=== PATIENT | male | born 1960 | race Caucasian/White ===

== ENCOUNTER 2016-10-22 15:21 | Emergency (ER) | payer OTHER ==
[2016-10-22] MEDS ORDERED: oxyCODONE 5 MG TABLET PO STA (16:36)
[2016-10-22] MEDS ORDERED: cefTRIAXone 1 GM in SODIUM CHLORIDE 0.9% MINIBAG 100 ML IV STA (17:47)
[2016-10-22] MEDS ORDERED: cefTRIAXone 1 GM VIAL ONE (17:51)
== END 2016-10-22 18:47 | disposition home or self-care (01) ==
DX: J18.9 Pneumonia, unspecified organism (principal); I10 Essential (primary) hypertension; Z98.84 Bariatric surgery status; Z98.0 Intestinal bypass and anastomosis status; G89.29 Other chronic pain; M54.9 Dorsalgia, unspecified

== ENCOUNTER 2017-04-02 22:54 | Emergency (ER) | payer OTHER ==
[2017-04-02 23:04] VITALS: BP 209/134
--- NOTE | 2017-04-02 23:57 | ED Physician Documentation ---
History of Present Illness - Stated complaint Stated Complaint: ANXIETY - Chief complaint Chief Complaint: Back Pain - History obtained from History obtained from: Patient - History of Present Illness Improved by: no ameliorating factors Worsened by: no exacerbating factors - Additonal information Additional information: patient takes oxycodone and oxycontin on a daily basis for years (for chronic back and hip pain). He had these two medications in a bottle at his bedside one week ago when his bedspread knocked over both the bottle as well as a full glass of water. Most of these two medications dissolved due to exposure to the water. He is due for refills Tuesday (04/04). He was able to salvage a few of the pills and took smaller doses than usual to try to prevent withdrawal, but he now has been without a dose of either of these for 2 days. He contacted the prescribing physician and was told he would have to wait until Tuesday before medications would be prescribed or provided. He c/o insomnia, nausea, diaphoresis, anxiety. Review of Systems Constitutional: reports: Chills, Myalgias, Sweats. denies: Fever Cardiac: reports: Reviewed and negative Respiratory: reports: Reviewed and negative GI: reports: Nausea. denies: Abdominal Pain, Vomiting PD PAST MEDICAL HISTORY - Past Medical History Cardiovascular: Hypertension Respiratory: None Neuro: Head injury, Tremors Endocrine/Autoimmune: None GI: Ulcers : Frequency HEENT: None Psych: Depression, Anxiety, Panic attacks, ADD/ADHD, Claustrophobia, Eating disorder Musculoskeletal: Osteoarthritis Derm: None - Past Surgical History Past Surgical History: Yes General: Other Ortho: Shoulder arthroplasty, Other - Present Medications Home Medications: Ambulatory Orders Medication Instructions Recorded Confirmed oxyCODONE ER [OxyCONTIN] 30 mg PO Q12H 11/01/13 10/22/16 oxyCODONE [Roxicodone] 60 mg PO Q4HR 11/01/13 10/22/16 Amoxicillin 10 ml PO TID 10 Days 10/22/16 Atorvastatin [Lipitor] 20 mg PO DAILY 10/22/16 10/22/16 Bupropion HCl [Wellbutrin Xl] 1 tab PO DAILY 10/22/16 10/22/16 Carvedilol [Coreg] 25 mg PO BID 10/22/16 10/22/16 Cyclobenzaprine [Flexeril] 10 mg PO TID 10/22/16 10/22/[address] [Voltaren] 75 mg PO DAILY 10/22/16 10/22/16 Doxycycline Monohydrate 20 ml PO BID 10 Days 10/22/16 [Vibramycin] Lisinopril 20 mg PO DAILY 10/22/16 10/22/16 Pregabalin [Lyrica] 1 cap PO TID 10/22/16 10/22/16 Solifenacin Succinate [Vesicare] 5 mg PO DAILY 10/22/16 10/22/16 Spironolactone 12.5 mg PO DAILY 10/22/16 10/22/16 Tizanidine HCl 8 mg PO DAILY PM 10/22/16 10/22/16 Venlafaxine HCl [Effexor Xr] 150 mg PO DAILY 10/22/16 10/22/16 Oxycodone HCl [Oxycontin] 60 mg PO BID #2 tab.er.12h 04/03/17 oxyCODONE [Roxicodone] 2 tab PO Q4HR #12 tablet 04/03/17 - Allergies Allergies/Adverse Reactions: Allergies Allergy/AdvReac Type Severity Reaction Status Date / Time No Known Drug Allergies Allergy Verified 04/02/17 23:04 - Social History Does the pt smoke?: No Smoking Status: Never smoker Does the pt drink ETOH?: No Does the pt have substance abuse?: No - Immunizations Immunizations are current?: Yes - POLST Patient has POLST: No PD ED PE NORMAL - Vitals Vital signs reviewed: Yes - General General: Alert and oriented X 3, Well developed/nourished, Other (appears anxious but is cooperative and answers appropriately) - HEENT HEENT: PERRL, EOMI, Moist mucous membranes - Neck Neck: Supple, no meningeal sign - Cardiac Cardiac: RRR, No murmur - Respiratory Respiratory: No respiratory distress, Clear bilaterally - Abdomen Abdomen: Soft, Non tender Results - Vitals Vitals: Vital Signs - 24 hr 04/02/17 22:56 Temperature 36.2 C L Heart Rate 86 Respiratory 20 Rate Blood Pressure 209/134 H O2 Saturation 100 Oxygen O2 Source Room air PD MEDICAL DECISION MAKING - ED course Complexity details: considered differential, d/w patient ED course: [facility] reflects regular prescriptions for the oxycodone, oxycontin, as well as diazepam and tramadol. The prescriptions are all from the same prescribing physician and there are no "red flags" in his history on [facility], [facility], and my [facility] records. He has an appointment Tuesday and thus won't need much medication. Given percocet take-home pack and I prescribed the oxycodone and oxycontin in an amount that should be enough to last until Tuesday. Departure - Departure Disposition: Home, Self Care Clinical Impression: Withdrawal from opioids Condition: Good Instructions: ED Withdrawal Narcotic Prescriptions: oxyCODONE [Roxicodone] 2 tab PO Q4HR #12 tablet Oxycodone HCl [Oxycontin] 60 mg PO BID #2 tab.er.12h Comments: Follow up with your doctor on Tuesday as scheduled. It is imperative that you not only tell your doctor that you were seen in the emergency department tonight , but that you also bring the prescriptions with you and show them to your doctor so that they know what was prescribed in what doses and what quantities Discharge Date/Time: 04/03/17 00:41
[2017-04-03] MEDS ORDERED: oxyCODONE/ACET 5/325 Prepack 4 PO STA (00:28)
[2017-04-03] MEDS ORDERED: oxyCODONE/ACET 5/325 Prepack 4 PO ONE (00:33)
== END 2017-04-03 00:41 | disposition home or self-care (01) ==
LOC: ED 22:54
DX: F11.23 Opioid dependence with withdrawal (principal); M54.9 Dorsalgia, unspecified; M25.559 Pain in unspecified hip; G89.29 Other chronic pain; I10 Essential (primary) hypertension; M19.90 Unspecified osteoarthritis, unspecified site; F32.9 Major depressive disorder, single episode, unspecified; Z87.11 Personal history of peptic ulcer disease
CPT/HCPCS: 99283

== ENCOUNTER 2019-05-22 11:46 | Inpatient (IN) | payer OTHER ==
[2019-05-22 15:10] LABS: BILIRUBIN,URINE NEGATIVE (NEGATIVE); GLUCOSE, URINE (UA) >=1000 mg/dL (NEGATIVE); KETONES,URINE (UA) NEGATIVE (NEGATIVE); LEUKOCYTE ESTERASE, URINE NEGATIVE (NEGATIVE); NITRITE,URINE NEGATIVE (NEGATIVE); OCCULT BLOOD,URINE MODERATE (NEGATIVE); PROTEIN,URINE TRACE mg/dL (NEGATIVE); UROBILINOGEN,URINE 0.2 (NORMAL) E.U./dL (NORMAL)
[2019-05-22 15:12] LABS: CLARITY,URINE CLEAR (CLEAR)
--- NOTE | 2019-05-22 15:18 | ED Physician Documentation ---
History of Present Illness - Stated complaint Stated Complaint: BODY PX - Chief complaint Chief Complaint: General - History obtained from History obtained from: Patient, EMS - History of Present Illness Timing: Other (This is a 58-year-old gentleman with chronic bilateral hip pain who lives by himself with an [place]. He says there is actually someone else in the house, but it is not helped much by this person. He is a little vague on history and timeframe but it sounds like he had 2 falls late last week, the first 1 he remembers waking up on the floor with his eyes open staring up at the ceiling with an increase in his bilateral hip pain and then he thinks he fell again another couple of days later. It sounds like he is been pretty much unable to ambulate ever since and is been down on the ground a lot. As such he missed his medications over the last day because he could not get to them. He normally takes 4 x 30 mg OxyCodone per day and 3 x 10 mg Valium per day for chronic pain.) Review of Systems Ten Systems: 10 systems reviewed and negative Constitutional: denies: Fever, Chills Cardiac: denies: Chest pain / pressure, Palpitations Respiratory: denies: Dyspnea, Cough GI: denies: Abdominal Pain, Nausea, Diarrhea Musculoskeletal: reports: Pain with weight bearing Neurologic: reports: Headache, LOC PD PAST MEDICAL HISTORY - Past Medical History Cardiovascular: Hypertension Respiratory: None Endocrine/Autoimmune: None GI: Ulcers : Frequency HEENT: None Psych: Depression, Anxiety, Panic attacks, ADD/ADHD, Claustrophobia, Eating disorder Musculoskeletal: Osteoarthritis Derm: None - Past Surgical History Past Surgical History: Yes General: Other Ortho: Shoulder arthroplasty, Other - Present Medications Home Medications: Ambulatory Orders Medication Instructions Recorded Confirmed Atorvastatin [Lipitor] 20 mg PO DAILY 10/22/16 10/22/16 Bupropion HCl [Wellbutrin Xl] 1 tab PO DAILY 10/22/16 10/22/16 Carvedilol [Coreg] 25 mg PO BID 10/22/16 10/22/16 Cyclobenzaprine [Flexeril] 10 mg PO TID 10/22/16 10/22/[address] [Voltaren] 75 mg PO DAILY 10/22/16 10/22/16 Lisinopril 20 mg PO DAILY 10/22/16 10/22/16 Pregabalin [Lyrica] 1 cap PO TID 10/22/16 10/22/16 Solifenacin Succinate [Vesicare] 5 mg PO DAILY 10/22/16 10/22/16 Spironolactone 12.5 mg PO DAILY 10/22/16 10/22/16 Tizanidine HCl 8 mg PO DAILY PM 10/22/16 10/22/16 Venlafaxine HCl [Effexor Xr] 150 mg PO DAILY 10/22/16 10/22/16 Oxycodone HCl [Oxycontin] 60 mg PO BID 05/22/19 05/22/19 diazePAM [Diazepam] 10 mg PO TID PRN 05/22/19 05/22/19 oxyCODONE [Roxicodone] 60 mg PO Q4H PRN 05/22/19 05/22/19 - Allergies Allergies/Adverse Reactions: Allergies Allergy/AdvReac Type Severity Reaction Status Date / Time No Known Drug Allergies Allergy Verified 04/02/17 23:04 - Social History Does the pt smoke?: No Smoking Status: Never smoker Does the pt drink ETOH?: No Does the pt have substance abuse?: No - Immunizations Immunizations are current?: Yes - POLST Patient has POLST: No PD ED PE NORMAL - Vitals Vital signs reviewed: Yes - General General: Alert and oriented X 3, No acute distress, Other (Somewhat disheveled, smells of urine) - HEENT HEENT: EOMI, Other (Midpoint pupils, some exophthalmos, dry mucous membranes) - Neck Neck: Supple, no meningeal sign, No bony TTP - Cardiac Cardiac: RRR, No murmur - Respiratory Respiratory: No respiratory distress, Clear bilaterally - Abdomen Abdomen: Soft, Non tender - Back Back: No CVA TTP, No spinal TTP - Derm Derm: Normal color, Warm and dry - Extremities Extremities: Other (Scrapes and swelling over the anterior parts of both knees consistent with crawling on his knees recently. I am really unable to elucidate any pain or tenderness from either hip. He has very poor range of motion in either hip, but internal and external rotation do not seem to be painful.) - Neuro Neuro: Alert and oriented X 3, Normal speech Results - Vitals Vitals: Vital Signs - 24 hr 05/22/19 05/22/19 05/22/19 12:03 14:42 16:22 Temperature 36.2 C L 36.5 C 36.7 C Heart Rate 120 H 88 92 Respiratory 18 16 20 Rate Blood Pressure 150/82 H 148/80 H 144/82 H O2 Saturation 99 100 99 Oxygen O2 Source Room air - EKG (time done) 1735 Rate: Rate (enter#) (89) Rhythm: NSR, LAE [place]: Normal, LAD QRS: LVH Ischemia: Non specific changes Computer interpretation: Agree with computer - Labs Labs: Laboratory Tests 05/22/19 05/22/19 05/22/19 14:54 14:56 15:25 WBC 84.8 H* RBC 4.99 Hgb 12.5 L Hct 41.6 L MCV 83.4 MCH 25.1 L MCHC 30.0 L RDW 14.9 Plt Count 217 MPV 11.0 Neut # (Auto) Not Reportable Lymph # (Auto) Not Reportable [place] # (Auto) Not Reportable Eos # (Auto) Not Reportable Baso # (Auto) Not Reportable Absolute Nucleated RBC Not Reportable Total Counted 100 Band Neuts % (Manual) 0 Abnorm Lymph % (Manual) 77 Nucleated RBC % Not Reportable Neutrophils # (Manual) 9.3 H Lymphocytes # (Manual) 70.4 H Monocytes # (Manual) 3.4 H Eosinophils # (Manual) 0.0 Basophils # (Manual) 1.7 H Differential Comment MANUAL DIFFERENTIAL Manual Slide Review Indicated WBC Morphology 1+ SMUDGE Platelet Estimate NORMAL (130-450,000) Platelet Morphology 1+ LARGE PLATELETS RBC Morph Micro Appear NORMAL APPEARANCE PT INR Sodium Potassium Chloride Carbon Dioxide Anion Gap BUN Creatinine Estimated GFR (MDRD) Glucose Calcium Total Bilirubin AST ALT Alkaline Phosphatase Total Creatine Kinase Troponin I High Sens Total Protein Albumin Globulin Albumin/Globulin Ratio Lipase Urine Color YELLOW Urine Clarity CLEAR Urine pH 6.0 Ur Specific [place] <=1.005 Urine Protein TRACE Urine Glucose (UA) >=1000 H Urine Ketones NEGATIVE Urine Occult Blood MODERATE H Urine Nitrite NEGATIVE Urine Bilirubin NEGATIVE Urine Urobilinogen 0.2 (NORMAL) Ur Leukocyte Esterase NEGATIVE Urine RBC 0-5 Urine WBC 0-3 Ur Squamous Epith Cells FEW Squamous Urine Bacteria None Seen Ur Microscopic Review INDICATED Urine Culture Comments NOT INDICATED Urine Opiates Screen NEGATIVE Ur Oxycodone Screen POSITIVE H Urine Methadone Screen NEGATIVE Ur Propoxyphene Screen NEGATIVE Ur Barbiturates Screen NEGATIVE Ur Tricyclics Screen NEGATIVE Ur Phencyclidine Scrn NEGATIVE Ur Amphetamine Screen NEGATIVE U Methamphetamines Scrn NEGATIVE U Benzodiazepines Scrn POSITIVE H Urine Cocaine Screen NEGATIVE U Cannabinoids Screen NEGATIVE Ethyl Alcohol 05/22/19 05/22/19 05/22/19 15:25 15:25 15:25 WBC RBC Hgb Hct MCV MCH MCHC RDW Plt Count MPV Neut # (Auto) Lymph # (Auto) [place] # (Auto) Eos # (Auto) Baso # (Auto) Absolute Nucleated RBC Total Counted Band Neuts % (Manual) Abnorm Lymph % (Manual) Nucleated RBC % Neutrophils # (Manual) Lymphocytes # (Manual) Monocytes # (Manual) Eosinophils # (Manual) Basophils # (Manual) Differential Comment Manual Slide Review WBC Morphology Platelet Estimate Platelet Morphology RBC Morph Micro Appear PT 12.6 INR 1.1 Sodium 133 L Potassium 3.0 L Chloride 91 L Carbon Dioxide 27 Anion Gap 15.0 H BUN 37 H Creatinine 1.4 H Estimated GFR (MDRD) 52 L Glucose 366 H Calcium 8.5 Total Bilirubin 0.7 AST 118 H ALT 105 H Alkaline Phosphatase 123 H Total Creatine Kinase 1604 H* Troponin I High Sens 15.5 Total Protein 7.0 Albumin 3.5 Globulin 3.5 Albumin/Globulin Ratio 1.0 Lipase 24 Urine Color Urine Clarity Urine pH Ur Specific [place] Urine Protein Urine Glucose (UA) Urine Ketones Urine Occult Blood Urine Nitrite Urine Bilirubin Urine Urobilinogen Ur Leukocyte Esterase Urine RBC Urine WBC Ur Squamous Epith Cells Urine Bacteria Ur Microscopic Review Urine Culture Comments Urine Opiates Screen Ur Oxycodone Screen Urine Methadone Screen Ur Propoxyphene Screen Ur Barbiturates Screen Ur Tricyclics Screen Ur Phencyclidine Scrn Ur Amphetamine Screen U Methamphetamines Scrn U Benzodiazepines Scrn Urine Cocaine Screen U Cannabinoids Screen Ethyl Alcohol 5.7 - Rads (name of study) CT Pelvis Radiology: Prelim report reviewed (Advanced left and severe right hip degenerative disease. No fracture.), EMP read contemporaneously CT Head Radiology: EMP read contemporaneously (NAD) PD MEDICAL DECISION MAKING - ED course ED course: 58-year-old gentleman with chronic pain from both hips presents with 2 falls over the last week. Now he really cannot walk and looks like he has been crawling on his hands and knees based on the appearance of his knees. White count 85,000. I discussed this with him, initially asking if he had any form of known cancer to which he replied no. I discussed with him that it looks like CLL, he said that he knows he has that and sees an oncologist in [place] for same. He has modest rhabdomyolysis and prerenal acute kidney injury. An IV was placed and he is given fluid hydration and potassium replacement. Spoke with Dr. Gonzalez for admission at 4:30 PM. Departure - Departure Disposition: [facility] DC/Xfer Clinical Impression: CLL (chronic lymphocytic leukemia), Fall Rhabdomyolysis Qualifiers: Rhabdomyolysis type: non-traumatic Qualified Code(s): M62.82 - Rhabdomyolysis Contusion of right hip Qualifiers: Encounter type: initial encounter Qualified Code(s): S70.01XA - Contusion of right hip, initial encounter Contusion of left hip Qualifiers: Encounter type: initial encounter Qualified Code(s): S70.02XA - Contusion of left hip, initial encounter Condition: Fair
[2019-05-22 15:25] LABS: BACTERIA,URINE None Seen /HPF (None Seen); RBC,URINE 0-5 /HPF (0-5); SQUAMOUS EPITHELIAL CELL,UR FEW Squamous (<= Few)
[2019-05-22 15:31] LABS: BASOPHILS % (AUTO) 0.1 %; EOSINOPHILS % (AUTO) 0.2 %; HGB - HEMOGLOBIN 12.5 g/dL (14.0-18.0); MEAN CORPUSCULAR HEMOGLOBIN 25.1 pg (27.0-31.0); MEAN CORPUSCULAR VOLUME 83.4 fL (80.0-94.0); MONOCYTES % (AUTO) 4.8 %; NEUTROPHILS % (AUTO) 16.1 %; PLT - PLATELET COUNT 217 10^3/uL (130-450); RED BLOOD COUNT 4.99 10^6/uL (4.70-6.10); RED CELL DISTRIBUTION WIDTH 14.9 % (12.0-15.0)
[2019-05-22 15:40] LABS: WHITE BLOOD COUNT 84.8 x10^3/uL (4.8-10.8)
[2019-05-22 15:42] LABS: INR 1.1 (0.8-1.2); PT - PROTHROMBIN TIME 12.6 secs (9.9-12.6)
--- NOTE | 2019-05-22 16:06 | CT Report ---
Reason: head/hip inj Procedure Date: 05/22/2019 Accession Number: [id number] / [id number] Procedure: CT - HEAD WO CPT Code: FULL RESULT: EXAM: CT HEAD EXAM DATE: 05/22/2019 03:59 PM. CLINICAL HISTORY: Head/hip inj. COMPARISON: None. TECHNIQUE: Multiaxial CT images were obtained from the foramen magnum to the vertex. Reformats: Sagittal and coronal. IV contrast: None. In accordance with CT protocol optimization, one or more of the following dose reduction techniques were utilized for this exam: automated exposure control, adjustment of mA and/or KV based on patient size, or use of iterative reconstructive technique. FINDINGS: Parenchyma: No intraparenchymal hemorrhage. No evidence of mass, midline shift, or CT findings of infarction. [place] Valle-white differentiation is distinct. Extraaxial Spaces: Normal for age. No subdural or epidural collections identified. Ventricles: Normal in size and position. Sinuses and Orbits: Imaged paranasal sinuses, orbits, and mastoids show no significant abnormality. Bones: No evidence of fracture or calvarial defect. Other: None. IMPRESSION: Normal head CT. RADIA
[2019-05-22 16:15] LABS: BAND NEUTROPHILS % (MANUAL) 0 %
[2019-05-22 16:16] LABS: ABNORMAL LYMPHS % (MANUAL) 77 %; ALBUMIN 3.5 g/dL (3.2-5.5); BASOPHILS # (MANUAL) 1.7 10^3/uL (0-0.1); BASOPHILS % (MANUAL) 2 %; BILIRUBIN,TOTAL 0.7 mg/dL (0.2-1.0); CALCIUM 8.5 mg/dL (8.5-10.3); CREATININE 1.4 mg/dL (0.6-1.2); LYMPHOCYTES # (MANUAL) 70.4 10^3/uL (1.5-3.5); LYMPHOCYTES % (MANUAL) 6 %; MONOCYTES # (MANUAL) 3.4 10^3/uL (0.0-1.0)
[2019-05-22 16:18] LABS: PLATELET ESTIMATE, MANUAL NORMAL (130-450,000) (NORMAL); PLATELET MORPHOLOGY 1+ LARGE PLATELETS (NORMAL); RBC MORPHOLOGY (MULTIPLE) NORMAL APPEARANCE (NORMAL)
[2019-05-22] MEDS ORDERED: oxyCODONE 5 MG TABLET PO STA (16:18)
[2019-05-22] MEDS ORDERED: SODIUM CHLORIDE 0.9% 1,000 ML IV ONE ×2 (16:19)
[2019-05-22] MEDS ORDERED: POTASSIUM CHLORIDE 20 MEQ TABLET PO STA (16:20)
[2019-05-22 16:21] LABS: DIFFERENTIAL COMMENT MANUAL DIFFERENTIAL
[2019-05-22] MEDS ORDERED: oxyCODONE ER 10 MG TABLET PO STA (16:28)
[2019-05-22] MEDS ORDERED: oxyCODONE ER 40 MG TABLET PO STA (16:29)
--- NOTE | 2019-05-22 16:34 | CT Report ---
Reason: head/hip inj Procedure Date: 05/22/2019 Accession Number: [id number] / [id number] Procedure: CT - PELVIS WO CPT Code: FULL RESULT: EXAM: CT BONY PELVIS WITHOUT CONTRAST EXAM DATE: 05/22/2019 03:59 PM. CLINICAL HISTORY: Hip injury last week. Pain. COMPARISON: Abdominopelvic CT 02/16/2011. TECHNIQUE: Thin-section axial images were acquired of the pelvis without contrast. Post-processing: Coronal and sagittal reformats. Other: None. In accordance with CT protocol optimization, one or more of the following dose reduction techniques were utilized for this exam: automated exposure control, adjustment of mA and/or KV based on patient size, or use of iterative reconstructive technique. FINDINGS: Bones and articular surfaces: There are post surgical changes of L5-S1 laminectomy, posterior and interbody fusion from L4-S1. Mild symmetric degenerative change in the sacroiliac joints. No acute fractures are identified. The right hip demonstrates moderate joint space narrowing with femoral head marginal osteophytes. Severe joint space narrowing at the superolateral aspect of the joint with acetabular subchondral cyst formation and irregular marginal osteophytes. Large anterosuperior os acetabulum. The left hip demonstrates advanced degenerative arthritic change with [id number] articulation superiorly with severe subchondral sclerosis, subchondral cyst formation and remodeling of the femoral head and acetabulum. Large irregular articulating left hip marginal osteophytes. Left greater than right progression compared to the prior pelvic CT. Soft tissues: Small left hip joint effusion. Musculotendinous structures appear grossly intact. No significant muscle atrophy. IMPRESSION: 1. Advanced left hip degenerative joint disease with [id number] articulation, extensive subchondral cyst formation, subchondral sclerosis and marginal osteophytes. 2. Moderate to severe right hip degenerative joint disease. 3. No acute fracture identified. RADIA
[2019-05-22] MEDS ORDERED: SODIUM CHLORIDE FLUSH 0.9% 10 ML SYRINGE IVP PRN (16:43)
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
[2019-05-22 16:52] LABS: MUDS CUTOFF CONCENTRATIONS CUTOFF CONC BELOW:
[2019-05-22 17:03] LABS: AMPHETAMINE SCREEN,URINE NEGATIVE (NEGATIVE); BENZODIAZEPINES SCREEN, URINE POSITIVE (NEGATIVE); COCAINE SCREEN URINE NEGATIVE (NEGATIVE); METHADONE SCREEN, URINE NEGATIVE (NEGATIVE); METHAMPHETAMINES SCREEN, URINE NEGATIVE (NEGATIVE); OPIATE SCREEN, URINE NEGATIVE (NEGATIVE); OXYCODONE SCREEN, URINE POSITIVE (NEGATIVE); PROPOXYPHENE SCREEN, URINE NEGATIVE (NEGATIVE); TRICYCLIC ANTIDEPRESSANT,URINE NEGATIVE (NEGATIVE)
[2019-05-22] MEDS ORDERED: diazePAM 5 MG TABLET PO PRN (18:30)
[2019-05-22] MEDS ORDERED: oxyCODONE 5 MG TABLET PO PRN (18:30)
[2019-05-22] MEDS ORDERED: LIDOCAINE 2% URO-JET 5 ML SYRINGE UR PRN (19:45)
[2019-05-22] MEDS: SODIUM CHLORIDE 0.9% 1,000 ML IV SCH (19:55)
[2019-05-22] MEDS: SODIUM CHLORIDE FLUSH 0.9% 10 ML SYRINGE IVP SCH (19:56)
[2019-05-22] MEDS: oxyCODONE ER 10 MG TABLET PO SCH (22:36)
[2019-05-22] MEDS: oxyCODONE ER 40 MG TABLET PO SCH (22:36)
[2019-05-22] MEDS ORDERED: METOPROLOL 5 MG/5 ML VIAL IVP PRN (23:23)
[2019-05-23] MEDS: SODIUM CHLORIDE 0.9% 1,000 ML IV SCH (02:27)
[2019-05-23] MEDS: SODIUM CHLORIDE FLUSH 0.9% 10 ML SYRINGE IVP SCH ×3 (02:28→17:16)
[2019-05-23 05:46] LABS: BASOPHILS % (AUTO) 0.1 %; EOSINOPHILS % (AUTO) 0.5 %; HGB - HEMOGLOBIN 10.3 g/dL (14.0-18.0); LYMPHOCYTES % (AUTO) 78.4 %; MEAN CORPUSCULAR HEMOGLOBIN 25.2 pg (27.0-31.0); MEAN CORPUSCULAR VOLUME 83.9 fL (80.0-94.0); MONOCYTES % (AUTO) 4.6 %; NEUTROPHILS % (AUTO) 15.8 %; PLT - PLATELET COUNT 188 10^3/uL (130-450); RED BLOOD COUNT 4.09 10^6/uL (4.70-6.10); RED CELL DISTRIBUTION WIDTH 14.8 % (12.0-15.0)
[2019-05-23 06:05] LABS: ALBUMIN 2.7 g/dL (3.2-5.5); BILIRUBIN,TOTAL 0.8 mg/dL (0.2-1.0); CALCIUM 7.5 mg/dL (8.5-10.3); CRP - C-REACTIVE PROTEIN 6.5 mg/dL (0-1.0); MAGNESIUM 1.8 mg/dL (1.7-2.8); TOTAL PROTEIN 5.3 g/dL (6.7-8.2)
[2019-05-23 06:07] LABS: WHITE BLOOD COUNT 70.2 x10^3/uL (4.8-10.8)
[2019-05-23 06:08] LABS: ABNORMAL LYMPHS % (MANUAL) 0 %; BAND NEUTROPHILS % (MANUAL) 0 %
[2019-05-23 06:09] LABS: HB2 TOTAL 10.8 g/dL; HEMOGLOBIN A1C 1.1 g/dL; HEMOGLOBIN A1C % 11.5 % (4.6-6.2)
[2019-05-23 06:20] LABS: DIFFERENTIAL COMMENT MANUAL DIFFERENTIAL; LYMPHOCYTES % (MANUAL) 10 %; MONOCYTES # (MANUAL) 2.8 10^3/uL (0.0-1.0); PLATELET ESTIMATE, MANUAL NORMAL (130-450,000) (NORMAL); PLATELET MORPHOLOGY NORMAL APPEARANCE (NORMAL); RBC MORPHOLOGY (MULTIPLE) NORMAL APPEARANCE (NORMAL)
[2019-05-23] MEDS ORDERED: POTASSIUM CHLORIDE 20 MEQ TABLET PO ONE (07:42)
[2019-05-23] MEDS: POLYETHYLENE GLYCOL 3350 17 GM PACKET PO SCH (08:10)
[2019-05-23] MEDS: oxyCODONE ER 40 MG TABLET PO SCH ×2 (08:12→20:00)
[2019-05-23] MEDS: oxyCODONE ER 10 MG TABLET PO SCH ×2 (08:13→20:00)
[2019-05-23] MEDS: NS W/20 MEQ KCL 1,000 ML IV SCH ×2 (08:13→18:10)
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
[2019-05-23] MEDS ORDERED: VANCOMYCIN PER PHARMACY 100 GM in SODIUM CHLORIDE 0.9% 250 ML IV SCH (09:00)
[2019-05-23] MEDS: PIPERACILLIN/TAZOBACTAM 3.375 GM in SODIUM CHLORIDE 0.9% MINIBAG 100 ML IV SCH ×3 (09:22→20:00)
[2019-05-23] MEDS ORDERED: VANCOMYCIN INJ 2 GM in SODIUM CHLORIDE 0.9% 500 ML IV ONE ×5 (09:30→10:00)
[2019-05-23] MEDS: INSULIN ASPART 300 UNIT/3 ML PEN SUBQ SCH ×3 (12:39→20:08)
[2019-05-23] MEDS: MULTIVITAMIN W/MINERALS TABLET PO SCH (15:40)
[2019-05-23] MEDS: DIPHENOX/ATROPINE 2.5/0.025 MG TABLET PO SCH ×3 (15:40→20:00)
[2019-05-23] MEDS: oxyCODONE 5 MG TABLET PO PRN (17:15)
[2019-05-23] MEDS: MAGNESIUM OXIDE 400 MG TABLET PO SCH (17:16)
[2019-05-23] MEDS: oxyCODONE 30 MG TABLET PO PRN (17:16)
[2019-05-23] MEDS: VANCOMYCIN INJ 1.5 GM in SODIUM CHLORIDE 0.9% 500 ML IV SCH (18:11)
[2019-05-23] MEDS: CARVEDILOL 12.5 MG TABLET PO SCH (20:02)
[2019-05-23] MEDS ORDERED: INSULIN GLARGINE 300 UNIT/3 ML PEN SUBQ SCH (21:00)
[2019-05-23] MEDS: BUDESONIDE 0.5 MG/2 ML NEB INH SCH (21:17)
[2019-05-23] MEDS: FORMOTEROL FUMARATE NEB 20 MCG/2 ML INH SCH (21:17)
[2019-05-23] MEDS ORDERED: VANCOMYCIN INJ 1.5 GM in SODIUM CHLORIDE 0.9% 500 ML IV SCH (22:00)
[2019-05-24] MEDS: VANCOMYCIN INJ 1.5 GM in SODIUM CHLORIDE 0.9% 500 ML IV SCH ×2 (01:22→12:02)
[2019-05-24] MEDS: PIPERACILLIN/TAZOBACTAM 3.375 GM in SODIUM CHLORIDE 0.9% MINIBAG 100 ML IV SCH ×2 (04:09→09:00)
[2019-05-24] MEDS: oxyCODONE 30 MG TABLET PO PRN ×3 (04:39→16:34)
[2019-05-24] MEDS: oxyCODONE 5 MG TABLET PO PRN ×3 (04:40→16:33)
[2019-05-24] MEDS: SODIUM CHLORIDE FLUSH 0.9% 10 ML SYRINGE IVP SCH ×3 (04:45→16:55)
[2019-05-24 05:08] LABS: BASOPHILS % (AUTO) 0.1 %; EOSINOPHILS % (AUTO) 0.7 %; LYMPHOCYTES % (AUTO) 75.4 %; MEAN CORPUSCULAR HEMOGLOBIN 25.9 pg (27.0-31.0); MEAN CORPUSCULAR HGB CONC 29.7 g/dL (32.0-36.0); MEAN CORPUSCULAR VOLUME 87.1 fL (80.0-94.0); MONOCYTES % (AUTO) 5.1 %; NEUTROPHILS % (AUTO) 17.7 %; PLT - PLATELET COUNT 175 10^3/uL (130-450); RED BLOOD COUNT 4.25 10^6/uL (4.70-6.10); RED CELL DISTRIBUTION WIDTH 14.9 % (12.0-15.0)
[2019-05-24 05:18] LABS: ALBUMIN 2.8 g/dL (3.2-5.5); BILIRUBIN,TOTAL 0.5 mg/dL (0.2-1.0); CALCIUM 7.7 mg/dL (8.5-10.3); CREATININE 0.9 mg/dL (0.6-1.2); TOTAL PROTEIN 5.6 g/dL (6.7-8.2)
[2019-05-24 05:20] LABS: ABNORMAL LYMPHS % (MANUAL) 0 %
[2019-05-24 05:32] LABS: WHITE BLOOD COUNT 64.3 x10^3/uL (4.8-10.8)
[2019-05-24 05:36] LABS: BAND NEUTROPHILS % (MANUAL) 1 %; DIFFERENTIAL COMMENT MANUAL DIFFERENTIAL; LYMPHOCYTES # (MANUAL) 50.2 10^3/uL (1.5-3.5); LYMPHOCYTES % (MANUAL) 35 %; MONOCYTES # (MANUAL) 1.3 10^3/uL (0.0-1.0); PLATELET ESTIMATE, MANUAL NORMAL (130-450,000) (NORMAL); RBC MORPHOLOGY (MULTIPLE) NORMAL APPEARANCE (NORMAL)
[2019-05-24] MEDS: NS W/20 MEQ KCL 1,000 ML IV SCH ×2 (06:20→09:54)
[2019-05-24] MEDS: FORMOTEROL FUMARATE NEB 20 MCG/2 ML INH SCH (07:16)
[2019-05-24] MEDS: BUDESONIDE 0.5 MG/2 ML NEB INH SCH (07:16)
[2019-05-24] MEDS ORDERED: FLUTICASONE NASAL SPRAY NAS SCH (09:00)
[2019-05-24] MEDS ORDERED: ASPIRIN EC 81 MG TABLET PO SCH (09:00)
[2019-05-24] MEDS: POLYETHYLENE GLYCOL 3350 17 GM PACKET PO SCH (09:01)
[2019-05-24] MEDS: MAGNESIUM OXIDE 400 MG TABLET PO SCH ×2 (09:02→16:33)
[2019-05-24] MEDS: DIPHENOX/ATROPINE 2.5/0.025 MG TABLET PO SCH ×3 (09:02→16:33)
[2019-05-24] MEDS: oxyCODONE ER 40 MG TABLET PO SCH (09:02)
[2019-05-24] MEDS: oxyCODONE ER 10 MG TABLET PO SCH (09:02)
[2019-05-24] MEDS: CARVEDILOL 12.5 MG TABLET PO SCH (09:02)
[2019-05-24] MEDS: MULTIVITAMIN W/MINERALS TABLET PO SCH (09:03)
[2019-05-24] MEDS: INSULIN ASPART 300 UNIT/3 ML PEN SUBQ SCH ×3 (09:08→16:53)
[2019-05-24 10:11] LABS: VANCOMYCIN,TROUGH 23.2 ug/mL (10.0-20.0)
[2019-05-24] MEDS ORDERED: POTASSIUM CHLORIDE 20 MEQ/15 ML UDC PO SCH (11:00)
--- NOTE | 2019-05-24 13:25 | Discharge Plan ---
Discharge Plan Problem Reviewed?: Yes Disposition: Home, Self Care Condition: Fair Prescriptions: Carvedilol [Coreg] 12.5 mg PO BID #30 tablet Clindamycin HCl [Clindamycin 300MG CAP] 300 mg PO Q6H #40 capsule Diphenoxylate/Atropine [Lomotil] 2 tab PO QID PRN #60 tablet PRN Reason: Diarrhea Lactobacillus Acidophilus [Probiotic Acidophilus] 1 each PO BID #60 tablet Magnesium Oxide [Mag Ox] 400 mg PO BIDWM #60 tablet Metformin HCl [Metformin HCl ER] 1,000 mg PO BID #60 tab.er.24h Diet: Diabetic Activity Restrictions: Activity as Tolerated Shower Restrictions: No Driving Restrictions: Yes Assistance Devices: Walker Weight Bearing: Full Weight Health Concerns: Uncontrolled diabetes mellitus type 2 Non-healing foot ulcers Acute infection/cellulitis Rhabdomyolysis Traumatic brain injury Falls Plan of Treatment: Continue antibiotics at home for the next 10-days, also take a probiotic during this time. Since you have been having diarrhea, I have written for some Lomotil pills. Your blood pressure has been low to normal even after holding all of your blood pressure pills and starting your Coreg at only 1/2 the dose. Please STOP your Losartan, and a new prescription for Coreg has been sent to [facility]. Please resume your Metformin at 1000 mg twice daily to help heal your wounds and improve your blood sugars. See the [facility] wound care clinic to ensure proper treatment of your wounds. See oncology, also located in our outpatient [facility] clinic. Please have someone else take you places until you see your PCP, and rest when you get tired. Care Goals: Prevent falls Prevent more foot ulcers Prevent hospital stays See your specialists; Neurology, Oncology and Wound care clinic Reduce the amounts of narcotics to improve your quality of life Assessment: You were admitted to the hospital for a condition called Rhabdomyolysis (caused by damaged muscle tissue which leaked out into the blood stream), and after getting IV fluids, IV antibiotics, this has nearly resolved. This condition usually occurs to people who lie on the floor for an extended amount of time. The exact cause of your falls is undetermined, but most likely it was due to your acute infection of your right great toe. You were given IV antibiotics, which was transitioned to oral antibiotics to be continued at home for the next 10 days. You will need close follow up for this in regards to wound care of which our outpatient wound care clinic is willing to see you. I have made this referral. Your Hemoglobin A1C was elevated at 11.5%, which should be closer to no greater than 7%. If this continues you are at risk for suffering grave consequences with your non-healing wounds. Please continue to take the Metformin with a goal of 1000 mg twice daily. Please see your primary care provider within one week. Please make attempts to cut back on some of your sedatives. Please get someone else to drive until you follow up with your PCP due to the events which led to this hospital stay. Follow-Up Care: [facility] Clinic - Wound/Ostomy No Smoking: If you smoke, Please STOP! Call for help. Follow-up with: Choco Ramsey MD [Primary Care Provider] -
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
[2019-05-24] MEDS ORDERED: CLINDAMYCIN 150 MG CAPSULE PO SCH (14:00)
[2019-05-24] MEDS ORDERED: LACTOBACILLUS RHAMNOSUS GG CAPSULE PO SCH (16:00)
[2019-05-24 16:41] VITALS: BP 133/80
--- NOTE | 2019-05-26 02:56 | XRAY Report ---
Reason: rib pain, falls Procedure Date: 05/22/2019 Accession Number: [id number] / [id number] Procedure: XR - Ribs Bilat w/Chest 4 View CPT Code: FULL RESULT: EXAM: BILATERAL RIB RADIOGRAPHY EXAM DATE: 05/22/2019 07:39 PM. CLINICAL HISTORY: Rib pain, falls. COMPARISON: CHEST 2 VIEW PA/LAT 10/22/2016 5:02 PM. TECHNIQUE: 1 view of the chest and 2 views of the ribs. FINDINGS: Bones: There is a subtle nondisplaced fracture of the right lateral 10th rib. There may be a subtle nondisplaced fracture of the right lateral ninth rib. Lungs: No focal opacities. No pneumothorax. No pleural effusions. Mediastinum: The heart is not enlarged. There is tortuosity of the thoracic aorta. Other: None. IMPRESSION: 1. No infiltrates. 2. No hemopneumothoraces. 3. Subtle nondisplaced fractures of the right lateral ninth and 10th ribs. [facility]IA
== END 2019-05-24 17:55 | disposition home or self-care (01) | DRG 500 ==
LOC: ED 11:46 → MS2 16:43
PROVIDERS: ADMIT Nurse Practitioner; ATTEND Nurse Practitioner
PROC: 0HDMXZZ Extraction of Right Foot Skin, External Approach (ICD-10-PCS; principal; 2019-05-23)
PROC: 0JDQ0ZZ Extraction of Right Foot Subcutaneous Tissue and Fascia, Open Approach (ICD-10-PCS; 2019-05-24)
DX: M62.82 Rhabdomyolysis (principal); G93.41 Metabolic encephalopathy; C91.10 Chronic lymphocytic leukemia of B-cell type not having achieved remission; F11.20 Opioid dependence, uncomplicated; N17.9 Acute kidney failure, unspecified; E11.621 Type 2 diabetes mellitus with foot ulcer; L97.511 Non-pressure chronic ulcer of other part of right foot limited to breakdown of skin; L97.512 Non-pressure chronic ulcer of other part of right foot with fat layer exposed; L03.031 Cellulitis of right toe; E11.65 Type 2 diabetes mellitus with hyperglycemia; E11.42 Type 2 diabetes mellitus with diabetic polyneuropathy; R62.50 Unspecified lack of expected normal physiological development in childhood; J45.998 Other asthma; I10 Essential (primary) hypertension; K76.0 Fatty (change of) liver, not elsewhere classified; R07.9 Chest pain, unspecified; R55 Syncope and collapse; M16.0 Bilateral primary osteoarthritis of hip; F32.9 Major depressive disorder, single episode, unspecified; F41.0 Panic disorder [episodic paroxysmal anxiety]; F90.9 Attention-deficit hyperactivity disorder, unspecified type; F40.240 Claustrophobia; R19.7 Diarrhea, unspecified; K52.89 Other specified noninfective gastroenteritis and colitis; G89.29 Other chronic pain; N40.1 Benign prostatic hyperplasia with lower urinary tract symptoms; R35.0 Frequency of micturition; R35.1 Nocturia; R39.15 Urgency of urination; J32.9 Chronic sinusitis, unspecified; F50.9 Eating disorder, unspecified; E66.9 Obesity, unspecified; Z68.29 Body mass index [BMI] 29.0-29.9, adult; R26.9 Unspecified abnormalities of gait and mobility; S80.211A Abrasion, right knee, initial encounter; S80.212A Abrasion, left knee, initial encounter; S20.311A Abrasion of right front wall of thorax, initial encounter; S20.312A Abrasion of left front wall of thorax, initial encounter; S50.312A Abrasion of left elbow, initial encounter; S50.311A Abrasion of right elbow, initial encounter; S70.12XA Contusion of left thigh, initial encounter; S70.11XA Contusion of right thigh, initial encounter; S70.02XA Contusion of left hip, initial encounter; S70.01XA Contusion of right hip, initial encounter; W19.XXXA Unspecified fall, initial encounter; Y92.039 Unspecified place in apartment as the place of occurrence of the external cause; K21.9 Gastro-esophageal reflux disease without esophagitis; R79.89 Other specified abnormal findings of blood chemistry; M81.0 Age-related osteoporosis without current pathological fracture; M25.452 Effusion, left hip; F60.81 Narcissistic personality disorder; H54.7 Unspecified visual loss; H91.90 Unspecified hearing loss, unspecified ear; A49.01 Methicillin susceptible Staphylococcus aureus infection, unspecified site; B95.4 Other streptococcus as the cause of diseases classified elsewhere; I95.9 Hypotension, unspecified; Z91.19 Patient's noncompliance with other medical treatment and regimen; Z98.1 Arthrodesis status; Z79.51 Long term (current) use of inhaled steroids; Z79.84 Long term (current) use of oral hypoglycemic drugs; Z79.82 Long term (current) use of aspirin; Z87.820 Personal history of traumatic brain injury; Z91.81 History of falling; Z82.49 Family history of ischemic heart disease and other diseases of the circulatory system; Z87.11 Personal history of peptic ulcer disease; Z98.84 Bariatric surgery status; Z63.8 Other specified problems related to primary support group
CPT/HCPCS: 36415; 70450; 71111; 72192; 80053; 80202; 80306; 80320; 81001; 82550; 83036; 83690; 83735; 84443; 84484; 85025; 85610; 86140; 87070; 87077; 87181; 87205; 87640; 93005; 93306; 94640; 97116; 97162; 97166; 99285; A9270; J1815; J3370; J7626; 81003; 87086

== ENCOUNTER 2019-12-31 21:56 | Emergency (ER) | payer OTHER ==
--- NOTE | 2019-12-31 22:06 | ED Physician Documentation ---
PD HPI Fall - Stated complaint Stated Complaint: R SIDE PX/GLF - Chief complaint Chief Complaint: Trauma Ch/Bk - History obtained from History obtained from: Patient - History of Present Illness Mechanism of injury: Tripped Fall distance: Standing position Where injury occurred: Home Timing - onset: How many days ago (3 09/13) Injury(ies) location: Chest, Back (right flank and lower posterolateral right ribs). No: Head, Neck, Abdomen Quality of pain: Pain, Aching, Sharp Associated symptoms: No: LOC, AMS, Weakness, Paresthesias, Nausea / vomiting Worsens with: Movement, Palpation, Other (deep breathing) Similar symptoms before: Has not had sx before Recently seen: Not recently seen (he sees pain clinic in [place] for chronic hip/back pains and has slowly increased to large daily doses pain meds. He says the clinic is going to start weaning down doses.) Review of Systems Constitutional: denies: Fever, Chills, Myalgias Nose: denies: Rhinorrhea / runny nose, Congestion Throat: denies: Sore throat Cardiac: reports: Chest pain / pressure Respiratory: denies: Cough GI: denies: Abdominal Pain, Nausea, Vomiting Skin: reports: Abrasion (s). denies: Laceration (s) Musculoskeletal: reports: Back pain Neurologic: reports: Generalized weakness. denies: Focal weakness, Numbness, Altered mental status, Headache, Head injury PD PAST MEDICAL HISTORY - Past Medical History Cardiovascular: Hypertension Respiratory: None Neuro: Headaches, Peripheral neuropathy Endocrine/Autoimmune: Type 2 diabetes GI: GERD, Ulcers FIELD SUPPORT REPRESENTATIVE: None : Benign prostate hypertrophy, Nocturia, Frequency HEENT: Chronic sinusitis Psych: Depression, Anxiety, Panic attacks, ADD/ADHD, Claustrophobia, Eating disorder Musculoskeletal: Osteoarthritis Derm: None - Past Surgical History Past Surgical History: Yes General: Other Ortho: Shoulder arthroplasty, Other - Present Medications Home Medications: Ambulatory Orders Medication Instructions Recorded Confirmed Atorvastatin [Lipitor] 20 mg PO QPM 10/22/16 05/23/19 Bupropion HCl [Wellbutrin Xl] 300 mg PO DAILY 10/22/16 05/23/19 Cyclobenzaprine [Flexeril] 10 mg PO TID PRN 10/22/16 05/23/19 Spironolactone 25 mg PO DAILY 10/22/16 05/23/19 Tizanidine HCl 8 mg PO DAILY PM 10/22/16 05/23/19 Venlafaxine HCl [Effexor Xr] 150 mg PO DAILY 10/22/16 05/23/19 Oxycodone HCl [Oxycontin] 60 mg PO BID 05/22/19 05/22/19 diazePAM [Diazepam] 10 mg PO TID PRN 05/22/19 05/22/19 Aspirin [Adult Low Dose Aspirin EC] 81 mg PO DAILY 05/23/19 05/23/19 Ferrous Sulfate 4 tab PO DAILY 05/23/19 05/23/19 Fluticasone [Flonase] 2 sprays LIZ DAILY 05/23/19 05/23/19 Fluticasone/Salmeterol [Advair 1 puffs INH BID 05/23/19 05/23/19 250-50 Diskus] Ondansetron HCl [Zofran] 4 mg PO QID PRN 05/23/19 05/23/19 traMADol [Ultram] 100 mg PO QID 05/23/19 05/23/19 Carvedilol [Coreg] 12.5 mg PO BID #30 tablet 05/24/19 Clindamycin HCl [Clindamycin 300MG 300 mg PO Q6H #40 capsule 05/24/19 CAP] Diphenoxylate/Atropine [Lomotil] 2 tab PO QID PRN #60 tablet 05/24/19 Lactobacillus Acidophilus 1 each PO BID #60 tablet 05/24/19 [Probiotic Acidophilus] Magnesium Oxide [Mag Ox] 400 mg PO BIDWM #60 tablet 05/24/19 Metformin HCl [Metformin HCl ER] 1,000 mg PO BID #60 tab.er.24h 05/24/19 oxyCODONE [Roxicodone] 30 mg PO Q4H PRN #30 05/24/19 05/22/19 HYDROmorphone [Dilaudid] 2 mg PO Q6H #10 tablet 01/01/20 Lidocaine Patch 5% [Lidoderm Patch] 1 patch TOP DAILY PRN #10 patch 01/01/20 Naproxen 375 mg PO BID #20 tablet 01/01/20 - Allergies Allergies/Adverse Reactions: Allergies Allergy/AdvReac Type Severity Reaction Status Date / Time No Known Drug Allergies Allergy Verified 04/20/20 22:01 - Living Situation Living Situation: reports: Alone Living Arrangement: reports: At home - Social History Does the pt smoke?: No Smoking Status: Never smoker Does the pt drink ETOH?: No Does the pt have substance abuse?: No - Immunizations Immunizations are current?: Yes - POLST Patient has POLST: No POLST Status: Full Code PD ED PE NORMAL - Vitals Vital signs reviewed: Yes - General General: Alert and oriented X 3, No acute distress, Well developed/nourished - Neck Neck: Supple, no meningeal sign, No bony TTP, No adenopathy - Cardiac Cardiac: RRR, No murmur - Respiratory Respiratory: Clear bilaterally, Other (purple to brown bruising right posterolateral lower chest wall and flank. No spinal tenderness per se. Scabbed abrasions without infection.) - Abdomen Abdomen: Soft, Non tender - Back Back: No CVA TTP - Derm Derm: Normal color, No rash - Extremities Extremities: Normal ROM s pain - Neuro Neuro: Alert and oriented X 3, No motor deficit, Normal speech Results - Vitals Vitals: Oxygen O2 Source Room air - Rads (name of study) chest CT Radiology: Prelim report reviewed (no organ injuries. few rib fractures: 12th seems old. 9-11 appear subacute, per Radiologist.), EMP read contemporaneously (Couple of the fractures look newer, so would correlate clinically. ), See rad report PD MEDICAL DECISION MAKING - ED course Complexity details: reviewed results, re-evaluated patient (Further talking to him, he says he had run out of meds at expected time and his refills were delayed so not coming in until Wed (2 more days) and had run out 3 days ago. I would presume him to have more withdrawal at this point but one med was long acting, so maybe just starting. Would also explain hurting more at baseline, in addition to new injuries. He is on pain contract with clinic in [place]. His SIMA is very straightforward with same Rx each month regularly from just the one provider, so I do not feel he is seeking inappropriately.), considered differential (Had fall with pain/tender right posterolateral chest/flank, with bruising and abrasions that appear several days old (brown/purple bruising, scabbed abrasions). CT showing subacute rib fractures so presume from same event. He denies fall in past few weeks otherwise. He is on chronic pain meds. So will need extra dose to cover pain here in ER.), d/w patient Departure - Departure Disposition: 01 Home, Self Care Clinical Impression: Chronic narcotic dependence Fall from slip, trip, or stumble Qualifiers: Encounter type: initial encounter Qualified Code(s): W01.0XXA - Fall on same level from slipping, tripping and stumbling without subsequent striking against object, initial encounter Chest wall contusion Qualifiers: Encounter type: initial encounter Laterality: right Qualified Code(s): S20.211A - Contusion of right front wall of thorax, initial encounter Rib fractures Qualifiers: Encounter type: initial encounter Rib fracture type: multiple ribs Fracture type: closed Laterality: right Qualified Code(s): S22.41XA - Multiple fractures of ribs, right side, initial encounter for closed fracture Condition: Stable Record reviewed to determine appropriate education?: Yes Instructions: ED Fx Rib Follow-Up: Choco Ramsey MD [Primary Care Provider] - Prescriptions: HYDROmorphone [Dilaudid] 2 mg PO Q6H #10 tablet Lidocaine Patch 5% [Lidoderm Patch] 1 patch TOP DAILY PRN #10 patch PRN Reason: pain Naproxen 375 mg PO BID #20 tablet Comments: Use the lidocaine patches twice daily to the rib injury area. Use naproxen twice daily with food for the next 7 to 10 days. Stay well-hydrated. Use hydromorphone tablets 4 times a day for the next couple of days until your normal prescriptions become available and then resume those. Contact your pain specialist tomorrow to update her on your current medications and what were prescribed here. Discharge Date/Time: 01/01/20 00:39
[2019-12-31] MEDS: KETOROLAC 30 MG/ML VIAL IM STA (22:58)
[2019-12-31] MEDS: HYDROmorphone 2 MG/ML VIAL IM STA (22:58)
[2019-12-31] MEDS: LIDOCAINE PATCH 5% TOP STA (23:05)
--- NOTE | 2019-12-31 23:50 | CT Report ---
Reason: fall with pain/tender right lower posterolat chest Procedure Date: 12/31/2019 Accession Number: [id number] / [id number] Procedure: CT - CHEST WO CPT Code: Final Report FULL RESULT: EXAM: CT CHEST EXAM DATE: 12/31/2019 10:51 PM. CLINICAL HISTORY: Fall with pain/tender right lower posterolateral chest. COMPARISONS: None. TECHNIQUE: Routine helical CT imaging was performed through the chest. IV contrast: None. Reconstructions: Coronal and sagittal. In accordance with CT protocol optimization, one or more of the following dose reduction techniques were utilized for this exam: automated exposure control, adjustment of mA and/or KV based on patient size, or use of iterative reconstructive technique. FINDINGS: The visible portions of the thyroid gland is within normal limits. The unenhanced ascending aorta is dilated measuring 4.4 cm. Atherosclerotic plaque calcifications are seen in the aortic arch and coronary arteries. The unenhanced pulmonary artery is normal in course and caliber. The heart is enlarged. There is no pericardial effusion. The trachea is patent. Innumerable prominent pre-vascular, pretracheal, subcarinal, and axillary lymph nodes are seen. There is an enlarged right paratracheal lymph node measuring 1.6 x 1.6 cm. A small layering right pleural effusion is seen. There is a small peripheral area of consolidation in the right middle lobe with associated dilatation of the adjacent bronchioles. Nodular groundglass opacities are seen in portions of the right upper and lower lobes. The left lung is clear. There is no pneumothorax or left pleural effusion. Postsurgical changes from a gastric bypass are seen. The liver is enlarged measuring 26.7 cm in the craniocaudal dimension. Areas of hyper attenuating parenchyma adjacent to the gallbladder may represent areas of focal fatty sparing. Spleen is also markedly enlarged measuring 19.1 cm in length. There is atrophy of the pancreas or the adrenal glands are within normal limits. Hypoattenuating lesions are seen in both kidneys, likely representing cysts. The largest is in the mid pole of the right kidney and measures 3.1 cm. There is no hydronephrosis. Innumerable subcentimeter periportal, perigastric, mesenteric, periaortic, and pericaval lymph nodes are seen in the imaged portions of the abdomen. The visible bowel loops are normal in caliber. Posterior spinal fusion instrumentation is partially imaged in the lower lumbar spine. There is an exaggerated thoracic kyphosis centered at the thoracolumbar junction. Healing displaced right posterolateral ninth, 10th, and 11th rib fractures are seen. A displaced 12th posterior rib fracture appears chronic given the corticated margins. IMPRESSION: 1. Subacute displaced fractures of the right posterolateral ninth-11th ribs. The displaced 12th posterior rib fracture appears more chronic. 2. Small layering right pleural effusion. 3. Scattered nodular groundglass opacities in the right upper and lower lobes with small peripheral area of consolidation in the right middle lobe, may represent sequelae of a viral infection. 4. Hepatosplenomegaly. 5. Mediastinal, abdominal, and retroperitoneal lymphadenopathy. 6. Dilated ascending aorta. 7. Cardiomegaly. RADIA
[2019-12-31] MEDS: oxyCODONE/ACET 5/325 Prepack 4 PO STA (23:54)
[2019-12-31] MEDS: KETAMINE 500 MG/10 ML VIAL IM STA (23:54)
[2020-01-01 00:41] VITALS: BP 188/100
== END 2020-01-01 00:39 | disposition home or self-care (01) ==
LOC: ED 21:56
DX: F11.20 Opioid dependence, uncomplicated (principal); S20.211A Contusion of right front wall of thorax, initial encounter; S22.41XA Multiple fractures of ribs, right side, initial encounter for closed fracture; W01.0XXA Fall on same level from slipping, tripping and stumbling without subsequent striking against object, initial encounter; Y92.009 Unspecified place in unspecified non-institutional (private) residence as the place of occurrence of the external cause; I10 Essential (primary) hypertension; E11.9 Type 2 diabetes mellitus without complications
CPT/HCPCS: 71250; 96372; 99284

== ENCOUNTER 2020-07-19 15:39 | Emergency (ER) | payer OTHER ==
[2020-07-19] MEDS ORDERED: TETANUS/DIPHTHERIA/PERTUSSIS 0.5 ML SYRINGE IM ONE (16:50)
[2020-07-19] MEDS ORDERED: PANTOPRAZOLE 40 MG TABLET PO STA (16:50)
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
[2020-07-19 17:31] LABS: BASOPHILS % (AUTO) 0.1 %; EOSINOPHILS % (AUTO) 0.2 %; HGB - HEMOGLOBIN 10.3 g/dL (14.0-18.0); LYMPHOCYTES % (AUTO) 86.6 %; MEAN CORPUSCULAR HEMOGLOBIN 26.3 pg (27.0-31.0); MEAN CORPUSCULAR HGB CONC 28.9 g/dL (32.0-36.0); MEAN CORPUSCULAR VOLUME 90.8 fL (80.0-94.0); MEAN PLATELET VOLUME 10.5 fL (7.4-11.4); MONOCYTES % (AUTO) 8.5 %; PLT - PLATELET COUNT 232 10^3/uL (130-450); RED BLOOD COUNT 3.92 10^6/uL (4.70-6.10); RED CELL DISTRIBUTION WIDTH 15.5 % (12.0-15.0)
[2020-07-19 17:42] LABS: WHITE BLOOD COUNT 199.6 x10^3/uL (4.8-10.8)
[2020-07-19 17:43] LABS: ABNORMAL LYMPHS % (MANUAL) 0 %; BAND NEUTROPHILS % (MANUAL) 0 %
[2020-07-19 17:51] LABS: LYMPHOCYTES # (MANUAL) 183.6 10^3/uL (1.5-3.5); LYMPHOCYTES % (MANUAL) 92 %; PLATELET ESTIMATE, MANUAL NORMAL (130-450,000) (NORMAL); PLATELET MORPHOLOGY NORMAL APPEARANCE (NORMAL); RBC MORPHOLOGY (MULTIPLE) 1+ HYPOCHROMASIA (NORMAL)
[2020-07-19 17:52] LABS: DIFFERENTIAL COMMENT MANUAL DIFFERENTIAL
[2020-07-19 17:55] LABS: ALBUMIN 4.1 g/dL (3.2-5.5); ALBUMIN/GLOBULIN RATIO 1.2 (1.0-2.2); BILIRUBIN,TOTAL 0.5 mg/dL (0.2-1.0); CALCIUM 8.1 mg/dL (8.5-10.3); SALICYLATE 17.5 mg/dL; TOTAL PROTEIN 7.5 g/dL (6.7-8.2)
[2020-07-19] MEDS ORDERED: diazePAM INJ 5 MG/ML SYRINGE IM STA (18:04)
[2020-07-19] MEDS ORDERED: POTASSIUM CHLORIDE 20 MEQ TABLET PO STA (18:04)
[2020-07-19 18:27] VITALS: BP 180/90
== END 2020-07-19 18:26 | disposition home or self-care (01) ==
LOC: ED 15:39
DX: F32.9 Major depressive disorder, single episode, unspecified (principal); F41.9 Anxiety disorder, unspecified; G47.00 Insomnia, unspecified; C91.10 Chronic lymphocytic leukemia of B-cell type not having achieved remission; S80.811A Abrasion, right lower leg, initial encounter; W22.09XA Striking against other stationary object, initial encounter; Y92.512 Supermarket, store or market as the place of occurrence of the external cause; Z23 Encounter for immunization; Z87.11 Personal history of peptic ulcer disease; Z90.3 Acquired absence of stomach [part of]; I10 Essential (primary) hypertension; E11.42 Type 2 diabetes mellitus with diabetic polyneuropathy; Z79.84 Long term (current) use of oral hypoglycemic drugs; Z79.82 Long term (current) use of aspirin
CPT/HCPCS: 36415; 80053; 80329; 82550; 83690; 85025; 90471; 90715; 96372; 99283; 99284; A9270

== ENCOUNTER 2020-11-04 01:08 | Outpatient (CLI) | payer OTHER | END 2020-11-04 01:09 | disposition critical access hospital (66) | LOC: EMS 01:08 | PROVIDERS: ATTEND Emergency Medicine | DX: L08.9 Local infection of the skin and subcutaneous tissue, unspecified (principal) | CPT/HCPCS: A0425; A0429 ==

== ENCOUNTER 2020-11-04 01:18 | Emergency (ER) | payer OTHER ==
--- NOTE | 2020-11-04 01:48 | ED Physician Documentation ---
History of Present Illness - Stated complaint Stated Complaint: TOE INFECTION - Chief complaint Chief Complaint: General - History obtained from History obtained from: Patient, EMS - History of Present Illness Timing: Other (intermittent x weeks (see narrative, below)) Pain level now: 8 Improved by: rest Worsened by: weight-bearing - Additonal information Additional information: BIBA. Patient's chief complaint is right great toe pain which has been ongoing for several weeks. Per notes that are faxed to me from [facility], patient was evaluated at [facility] ED 10/17/20 for AMS, found to have elevated LFTs and possible acute cholecystitis. He left AMA and subsequently 10/16 blood cultures grew Klebsiella. He then went to [facility] ED 10/30/20, subsequently transferred to [facility]. Blood culture 10/30 no growth. on 11/01/20, MRCP showed marked gallbladder distention and cholelithiasis. MRI of right foot showed plantar ulcer of 1st toe as well as first distal phalanx osteomyelitis. HIDA scan showed NO scintigraphic evidence of acute cholecystitis. He was started on IV v ancomycin, cefepime, and metronidazole. Hallux amputation was recommended by podiatry but patient refused. He also has CLL. Notes from [place] indicate TACS did NOT recommend surgery, continue IV ceftriaxone and metronidazole. Podiatry recommended 6 week course of IV antibiotics for toe OM, given that patient refuses amputation. Patient denies abdominal pain. Review of Systems Constitutional: reports: Fatigue. denies: Fever, Chills, Sweats Eyes: reports: Reviewed and negative Ears: reports: Reviewed and negative Nose: reports: Reviewed and negative Throat: reports: Reviewed and negative Cardiac: reports: Reviewed and negative Respiratory: reports: Reviewed and negative GI: denies: Abdominal Pain, Nausea, Vomiting, Constipation, Diarrhea : denies: Dysuria, Frequency Skin: reports: Lesions (right great toe ulceration) Musculoskeletal: reports: Extremity pain (right foot) PD PAST MEDICAL HISTORY - Past Medical History Cardiovascular: Hypertension Respiratory: None Neuro: Headaches, Peripheral neuropathy Endocrine/Autoimmune: Type 2 diabetes GI: GERD, 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 : Benign prostate hypertrophy, Nocturia, Frequency HEENT: Chronic sinusitis Psych: Depression, Anxiety, Panic attacks, ADD/ADHD, Claustrophobia, Eating disorder Musculoskeletal: Osteoarthritis Derm: None - Past Surgical History Past Surgical History: Yes General: Other Ortho: Shoulder arthroplasty, Other - Present Medications Home Medications: Ambulatory Orders Medication Instructions Recorded Confirmed Bupropion HCl [Wellbutrin Xl] 300 mg PO DAILY 10/22/16 11/04/20 Cyclobenzaprine [Flexeril] 10 mg PO TID PRN 10/22/16 11/04/20 Tizanidine HCl 8 mg PO DAILY PM 10/22/16 11/04/20 Venlafaxine HCl [Effexor Xr] 150 mg PO DAILY 10/22/16 11/04/20 Oxycodone HCl [Oxycontin] 60 mg PO BID 05/22/19 11/04/20 diazePAM [Diazepam] 10 mg PO TID PRN 05/22/19 11/04/20 Aspirin [Adult Low Dose Aspirin EC] 81 mg PO DAILY 05/23/19 11/04/20 Ferrous Sulfate 4 tab PO DAILY 05/23/19 11/04/20 Fluticasone [Flonase] 2 sprays LIZ DAILY PRN 05/23/19 11/04/20 Ondansetron HCl [Zofran] 4 mg PO QID PRN 05/23/19 11/04/20 Carvedilol [Coreg] 12.5 mg PO BID #30 tablet 05/24/19 11/04/20 Magnesium Oxide [Mag Ox] 400 mg PO BIDWM #60 tablet 05/24/19 11/04/20 Metformin HCl [Metformin HCl ER] 1,000 mg PO BID #60 tab.er.24h 05/24/19 11/04/20 Lidocaine Patch 5% [Lidoderm Patch] 1 patch TOP DAILY PRN #10 patch 01/01/20 11/04/20 Diazepam [Valium] 10 mg PO TID #10 tablet 07/19/20 11/04/20 Losartan [Cozaar] 50 mg PO DAILY 11/04/20 11/04/20 Oxycodone HCl [Oxycontin] 60 mg ORAL BID 11/04/20 11/04/20 - Allergies Allergies/Adverse Reactions: Allergies Allergy/AdvReac Type Severity Reaction Status Date / Time No Known Drug Allergies Allergy Verified 07/19/20 15:53 - Social History Does the pt smoke?: No Smoking Status: Never smoker Does the pt drink ETOH?: No Does the pt have substance abuse?: No - Immunizations Immunizations are current?: Yes - POLST Patient has POLST: No POLST Status: Full Code PD ED PE NORMAL - Vitals Vital signs reviewed: Yes - General General: Alert and oriented X 3, No acute distress, Well developed/nourished - HEENT HEENT: Moist mucous membranes - Neck Neck: Supple, no meningeal sign - Cardiac Cardiac: RRR, No murmur - Respiratory Respiratory: No respiratory distress, Clear bilaterally - Abdomen Abdomen: Soft, Non tender - Derm Derm: Normal color, Warm and dry PD ED PE EXPANDED - Extremities Extremities: Pedal edema bilateral (R>L), Pedal Pulses Present Feet visual: 1 - deformity (ulceration with sharp margins, no discharge, mild TTP) Results - Vitals Vitals: Vital Signs - 24 hr 11/04/20 11/04/20 11/04/20 07:31 09:11 10:45 Temperature 36.9 C 36.7 C Heart Rate 100 98 100 Respiratory 16 16 16 Rate Blood Pressure 157/83 H 166/85 H 137/99 H O2 Saturation 100 99 100 11/04/20 11/04/20 11/04/20 12:26 14:00 16:24 Temperature 36.8 C 37.0 C Heart Rate 100 88 99 Respiratory 20 18 24 Rate Blood Pressure 164/76 H 140/78 H 145/70 H O2 Saturation 100 100 100 Oxygen O2 Source Room air - Labs Labs: Laboratory Tests 11/04/20 11/04/20 11/04/20 03:02 03:02 03:02 WBC 112.4 H* RBC 3.54 L Hgb 9.2 L Hct 31.8 L MCV 89.8 MCH 26.0 L MCHC 28.9 L RDW 15.9 H Plt Count 151 MPV 11.0 Neut # (Auto) Not Reportable Lymph # (Auto) Not Reportable Fallon # (Auto) Not Reportable Eos # (Auto) Not Reportable Baso # (Auto) Not Reportable Absolute Nucleated RBC Not Reportable Total Counted 100 Band Neuts % (Manual) 0 Reactive Lymphs % (Man) 5 Abnorm Lymph % (Manual) 0 Nucleated RBC % Not Reportable Neutrophils # (Manual) 5.6 Lymphocytes # (Manual) 100.0 H Monocytes # (Manual) 6.7 H Eosinophils # (Manual) 0.0 Basophils # (Manual) 0.0 Differential Comment MANUAL DIFFERENTIAL Platelet Morphology NORMAL APPEARANCE RBC Morph Micro Appear 1+ HYPOCHROMASIA Sodium 140 Potassium 3.7 Chloride 108 Carbon Dioxide 22 Anion Gap 10.0 BUN 11 Creatinine 0.8 Estimated GFR (MDRD) 99 Glucose 130 H Lactic Acid 1.1 Calcium 7.5 L Total Bilirubin 0.7 AST 16 ALT < 10 L Alkaline Phosphatase 139 H Total Protein 6.3 L Albumin 3.7 Globulin 2.6 Albumin/Globulin Ratio 1.4 Lipase 23 Nasal Adenovirus (PCR) Nasal B. parapertussis DNA (PCR) Nasal Coronavir 229E PCR Nasal Coronavir HKU1 PCR Nasal Coronavir NL63 PCR Nasal Coronavir OC43 PCR Nasal Enterovir/Rhinovir PCR Nasal Influenza B PCR Nasal Influenza A PCR Nasal Parainfluen 1 PCR Nasal Parainfluen 2 PCR Nasal Parainfluen 3 PCR Nasal Parainfluen 4 PCR Nasal RSV (PCR) Nasal B.pertussis DNA PCR Nasal C.pneumoniae (PCR) Liz Human Metapneumo PCR Nasal M.pneumoniae (PCR) Nasal SARS-CoV-2 (PCR) 11/04/20 05:50 WBC RBC Hgb Hct MCV MCH MCHC RDW Plt Count MPV Neut # (Auto) Lymph # (Auto) Fallon # (Auto) Eos # (Auto) Baso # (Auto) Absolute Nucleated RBC Total Counted Band Neuts % (Manual) Reactive Lymphs % (Man) Abnorm Lymph % (Manual) Nucleated RBC % Neutrophils # (Manual) Lymphocytes # (Manual) Monocytes # (Manual) Eosinophils # (Manual) Basophils # (Manual) Differential Comment Platelet Morphology RBC Morph Micro Appear Sodium Potassium Chloride Carbon Dioxide Anion Gap BUN Creatinine Estimated GFR (MDRD) Glucose Lactic Acid Calcium Total Bilirubin AST ALT Alkaline Phosphatase Total Protein Albumin Globulin Albumin/Globulin Ratio Lipase Nasal Adenovirus (PCR) NOT DETECTED Nasal B. parapertussis DNA (PCR) NOT DETECTED Nasal Coronavir 229E PCR NOT DETECTED Nasal Coronavir HKU1 PCR NOT DETECTED Nasal Coronavir NL63 PCR NOT DETECTED Nasal Coronavir OC43 PCR NOT DETECTED Nasal Enterovir/Rhinovir PCR NOT DETECTED Nasal Influenza B PCR NOT DETECTED Nasal Influenza A PCR NOT DETECTED Nasal Parainfluen 1 PCR NOT DETECTED Nasal Parainfluen 2 PCR NOT DETECTED Nasal Parainfluen 3 PCR NOT DETECTED Nasal Parainfluen 4 PCR NOT DETECTED Nasal RSV (PCR) NOT DETECTED Nasal B.pertussis DNA PCR NOT DETECTED Nasal C.pneumoniae (PCR) NOT DETECTED Liz Human Metapneumo PCR NOT DETECTED Nasal M.pneumoniae (PCR) NOT DETECTED Nasal SARS-CoV-2 (PCR) NOT DETECTED PD MEDICAL DECISION MAKING - ED course Complexity details: reviewed old records, reviewed results, re-evaluated patient, considered differential, d/w patient ED course: The records from [place] indicate that HIDA scan "showed gallbladder filling, this is not compatible with acute cholecystitis", and "supporting the absence of cholecystitis is...not having abdominal pain and pain does not develop with eating. TACS to sign off". There is also a progress note from the hospitalist indicating "per d/w ID today Dr. Puente plan for 2 weeks of abx, can switch to po at d/c". It is not clear to me what problem this recommendation was targeting but it is in the context of the gallbladder issues. The same progress note reflects that patient was transfused 2 units leukocyte reduced PRBC 11/01. Patient has CLL but has not seen an oncologist since 2016; notes from [place] indicate a consult was obtained during the brief time patient was there and " oncology felt that treatment is not indicated emergently during current hospitalization but plan to see him outpatient to start treatment once infections treated". notes indicate "peripheral smear here consistent with CLL", "CLL has progressed and now has abd/pelvic LAD, HSM, and anemia". Patient thus has a complicated medical history that includes acute, chronic, and [id number] medical issues. In leaving suddenly AMA from [place] yesterday, there is no plan in place for ongoing outpatient treatment. The patient requires admission for IV antibiotics, likely PICC line, and planning fo r ongoing treatment in appropriate outpatient setting. He absolutely refuses to be admitted to [facility], [place], , [facility], and [place]. He specifically and repeatedly insists on transfer to [facility]. Initially when we contacted [facility], no beds were available. I subsequently heard back from the hospitalist at [facility] (Dr. Ariza), accepts patient; there are still no beds available, but patient is accepted and will be transferred when a bed is available. Departure - Departure Disposition: 02 Transfer Acute Care Hosp Clinical Impression: Osteomyelitis of great toe of right foot Condition: Stable Discharge Date/Time: 11/04/20 18:02
[2020-11-04 03:08] LABS: BASOPHILS % (AUTO) 0.1 %; EOSINOPHILS % (AUTO) 0.2 %; HGB - HEMOGLOBIN 9.2 g/dL (14.0-18.0); LYMPHOCYTES % (AUTO) 87.3 %; MEAN CORPUSCULAR HGB CONC 28.9 g/dL (32.0-36.0); MEAN CORPUSCULAR VOLUME 89.8 fL (80.0-94.0); MONOCYTES % (AUTO) 7.8 %; NEUTROPHILS % (AUTO) 4.4 %; PLT - PLATELET COUNT 151 10^3/uL (130-450); RED BLOOD COUNT 3.54 10^6/uL (4.70-6.10); RED CELL DISTRIBUTION WIDTH 15.9 % (12.0-15.0)
[2020-11-04 03:12] LABS: WHITE BLOOD COUNT 112.4 x10^3/uL (4.8-10.8)
[2020-11-04 03:13] LABS: ABNORMAL LYMPHS % (MANUAL) 0 %; BAND NEUTROPHILS % (MANUAL) 0 %
[2020-11-04] MEDS ORDERED: SODIUM CHLORIDE 0.9% 1,000 ML IV STA (03:14)
[2020-11-04 03:21] LABS: ALBUMIN 3.7 g/dL (3.2-5.5); ALBUMIN/GLOBULIN RATIO 1.4 (1.0-2.2); ALKALINE PHOSPHATASE 139 IU/L (42-121); ALT ALANINE AMINOTRANSFERASE < 10 IU/L (10-60); AST ASPARTATE AMINOTRANSFERASE 16 IU/L (10-42); BILIRUBIN,TOTAL 0.7 mg/dL (0.2-1.0); BUN - BLOOD UREA NITROGEN 11 mg/dL (6-20); CALCIUM 7.5 mg/dL (8.5-10.3); CARBON DIOXIDE - CO2 22 mmol/L (21-32); CHLORIDE 108 mmol/L (101-111); CREATININE 0.8 mg/dL (0.6-1.2); GLUCOSE 130 mg/dL (70-100); LIPASE 23 U/L (22-51); TOTAL PROTEIN 6.3 g/dL (6.7-8.2)
[2020-11-04 03:37] LABS: LYMPHOCYTES % (MANUAL) 84 %; MONOCYTES # (MANUAL) 6.7 10^3/uL (0.0-1.0); PLATELET MORPHOLOGY NORMAL APPEARANCE (NORMAL); RBC MORPHOLOGY (MULTIPLE) 1+ HYPOCHROMASIA (NORMAL)
[2020-11-04 03:38] LABS: DIFFERENTIAL COMMENT MANUAL DIFFERENTIAL
[2020-11-04] MEDS ORDERED: KETOROLAC 30 MG/ML VIAL IVP STA (05:12)
[2020-11-04] MEDS ORDERED: MORPHINE 2 MG/ML CARPUJECT IVP STA (06:14)
[2020-11-04] MEDS ORDERED: HYDROmorphone 1 MG/ML CARPUJECT IVP STA ×3 (06:41→17:08)
[2020-11-04 06:48] LABS: C. PNEUMONIAE- RESP PCR PANEL NOT DETECTED
[2020-11-04] MEDS ORDERED: cefTRIAXone 2 GM in SODIUM CHLORIDE 0.9% MINIBAG 100 ML IV STA (07:17)
[2020-11-04] MEDS ORDERED: metroNIDAZOLE 500 MG/100 ML 500 MG/100 ML BAG IV SCH ×2 (08:00→16:00)
[2020-11-04] MEDS ORDERED: oxyCODONE ER 40 MG TABLET PO SCH ×3 (10:00→11:00)
[2020-11-04] MEDS ORDERED: LOSARTAN 50 MG TABLET PO SCH (10:00)
[2020-11-04] MEDS: oxyCODONE 5 MG TABLET PO SCH ×3 (10:43→17:00)
[2020-11-04 16:25] VITALS: BP 145/70
--- NOTE | 2020-11-04 17:10 | ED Physician Documentation ---
ED Addendum - Addendum Addendum: 11/04/20 17:08 The patient did not have any particular problems while here. He was awaiting bed confirmation from [facility] and they just shortly ago called with a bed assignment. Will provide transport at this time. He had been placed on his equivalent of his oral daily pain regimen. We had not had 60 mg tablets of OxyContin. He was given 40 mg with 2 doses of 10 mg short acting spaced every 6 hours. This would give the equivalent of the 60 mg over the 12 hours. He was given an extra dose of Dilaudid IV prior to arranging transfer as well. We did repeat the dose of Flagyl headache 8-hour interval. Otherwise no particular change in status. Vitals remained stable. Disposition the patient is transferred to [facility] in stable condition.
[2020-11-04] MEDS ORDERED: cefTRIAXone 2 GM in SODIUM CHLORIDE 0.9% MINIBAG 100 ML IV SCH (20:00)
== END 2020-11-04 18:02 | disposition short-term general hospital (02) ==
LOC: EDUNIT# → ED 01:18
DX: E11.69 Type 2 diabetes mellitus with other specified complication (principal); M86.171 Other acute osteomyelitis, right ankle and foot; E11.621 Type 2 diabetes mellitus with foot ulcer; L97.519 Non-pressure chronic ulcer of other part of right foot with unspecified severity; E11.42 Type 2 diabetes mellitus with diabetic polyneuropathy; Z79.84 Long term (current) use of oral hypoglycemic drugs; C91.10 Chronic lymphocytic leukemia of B-cell type not having achieved remission; I10 Essential (primary) hypertension; Z79.82 Long term (current) use of aspirin; Z20.822 Contact with and (suspected) exposure to COVID-19
CPT/HCPCS: 0202U; 36415; 80053; 83605; 83690; 85025; 96361; 96365; 96367; 96375; 96376; 99284; 99285; A9270; J1170

== ENCOUNTER 2020-11-04 18:02 | Outpatient (CLI) | payer OTHER | END 2020-11-04 18:03 | disposition short-term general hospital (02) | LOC: EMS 18:02 | DX: M86.9 Osteomyelitis, unspecified (principal) | CPT/HCPCS: A0425; A0428 ==

== ENCOUNTER 2020-11-07 18:17 | Outpatient (CLI) | payer OTHER | END 2020-11-07 18:18 | disposition critical access hospital (66) | LOC: EMS 18:17 | PROVIDERS: ATTEND Emergency Medicine | DX: M25.512 Pain in left shoulder (principal); M79.622 Pain in left upper arm; W01.0XXA Fall on same level from slipping, tripping and stumbling without subsequent striking against object, initial encounter; Y92.414 Local residential or business street as the place of occurrence of the external cause | CPT/HCPCS: A0425; A0429 ==

== ENCOUNTER 2020-11-07 18:52 | Emergency (ER) | payer OTHER ==
--- NOTE | 2020-11-07 18:56 | ED Physician Documentation ---
History of Present Illness - Stated complaint Stated Complaint: GLF/ L SHOULDER PX - History obtained from History obtained from: Patient, EMS - Additonal information Additional information: This is a 60-year-old gentleman with history of CLL. He was seen here few days ago and sent to [facility] for osteomyelitis of the foot. Is unclear when he was discharged but he is still wearing his hospital band from [facility] dated [place] 05[place]stretched left arm hurting his left shoulder. On arrival he is unwilling to cooperate and history because he has to have a bowel movement. Later I was able to obtain a more complete history. He says he left [facility] this morning around 11. After looking at prior records noting that he has a propensity to not be cooperative with care and leave AMA, I asked him if he left AMA he said yes. From his description it sounds like they wanted to do PICC line antibiotics but he was not willing. He did not start treatment for his CLL. He is requesting pain medication for his shoulder, he says his last dose of oxycodone was about 4 hours ago. 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 : Benign prostate hypertrophy, Nocturia, Frequency HEENT: Chronic sinusitis Psych: Depression, Anxiety, Panic attacks, ADD/ADHD, Claustrophobia, Eating disorder Musculoskeletal: Osteoarthritis Derm: None - Past Surgical History Past Surgical History: Yes General: Other Ortho: Shoulder arthroplasty, Other - Present Medications Home Medications: Ambulatory Orders Medication Instructions Recorded Confirmed Bupropion HCl [Wellbutrin Xl] 300 mg PO DAILY 10/22/16 11/04/20 Cyclobenzaprine [Flexeril] 10 mg PO TID PRN 10/22/16 11/04/20 Tizanidine HCl 8 mg PO DAILY PM 10/22/16 11/04/20 Venlafaxine HCl [Effexor Xr] 150 mg PO DAILY 10/22/16 11/04/20 Oxycodone HCl [Oxycontin] 60 mg PO BID 05/22/19 11/04/20 diazePAM [Diazepam] 10 mg PO TID PRN 05/22/19 11/04/20 Aspirin [Adult Low Dose Aspirin EC] 81 mg PO DAILY 05/23/19 11/04/20 Ferrous Sulfate 4 tab PO DAILY 05/23/19 11/04/20 Fluticasone [Flonase] 2 sprays LIZ DAILY PRN 05/23/19 11/04/20 Ondansetron HCl [Zofran] 4 mg PO QID PRN 05/23/19 11/04/20 Carvedilol [Coreg] 12.5 mg PO BID #30 tablet 05/24/19 11/04/20 Magnesium Oxide [Mag Ox] 400 mg PO BIDWM #60 tablet 05/24/19 11/04/20 Metformin HCl [Metformin HCl ER] 1,000 mg PO BID #60 tab.er.24h 05/24/19 11/04/20 Lidocaine Patch 5% [Lidoderm Patch] 1 patch TOP DAILY PRN #10 patch 01/01/20 11/04/20 Diazepam [Valium] 10 mg PO TID #10 tablet 07/19/20 11/04/20 Losartan [Cozaar] 50 mg PO DAILY 11/04/20 11/04/20 Oxycodone HCl [Oxycontin] 60 mg ORAL BID 11/04/20 11/04/20 - Allergies Allergies/Adverse Reactions: Allergies Allergy/AdvReac Type Severity Reaction Status Date / Time No Known Drug Allergies Allergy Verified 07/19/20 15:53 - Social History Does the pt smoke?: No Smoking Status: Never smoker Does the pt drink ETOH?: No Does the pt have substance abuse?: No - Immunizations Immunizations are current?: Yes - POLST Patient has POLST: No POLST Status: Full Code PD ED PE NORMAL - Vitals Vital signs reviewed: Yes - General General: No acute distress, Other (He is alert and oriented to person and place but is confused to time and recent events.) - HEENT HEENT: PERRL (small pupils), EOMI - Neck Neck: Supple, no meningeal sign, No bony TTP - Cardiac Cardiac: RRR, No murmur - Respiratory Respiratory: No respiratory distress, Clear bilaterally - Abdomen Abdomen: Normal bowel sounds, Soft, Non tender - Extremities Extremities: Other (Mild tenderness of the left shoulder, limited range of motion due to pain) - Neuro Neuro: No motor deficit, No sensory deficit, Normal speech Eye Opening: Spontaneous Motor: Obeys Commands Verbal: Confused GCS Score: 14 Results - Vitals Vitals: Vital Signs - 24 hr 11/07/20 19:20 Temperature 36.3 C L Heart Rate 84 Respiratory 20 Rate Blood Pressure 182/133 H O2 Saturation 100 Oxygen O2 Source Room air PD MEDICAL DECISION MAKING - ED course ED course: Records from [facility] received and reviewed. ID consult recommended oral Levaquin 500 mg for 6 weeks. Was discharged, not AMA He has plans to follow-up with an oncologist for his CLL. Departure - Departure Disposition: 01 Home, Self Care Clinical Impression: Fall from standing, Shoulder pain, Hip pain Condition: Good Instructions: ED Chronic Pain Management Comments: It was nice to meet you Pepe. Your x-rays of your shoulder and hip did not show any new findings but you do have bad arthritis. Your head CT did not show any injuries. Please follow-up with [facility] wound care and take your antibiotics that were prescribed for you in the hospital. Follow-up at [facility] for your oncologist appointment. Please do not drive while taking prescription pain medication that can be sedating. Return to the emergency department if you have any new or worsening symptoms or other concerns.
[2020-11-07] MEDS ORDERED: IBUPROFEN 800 MG TABLET PO STA (19:16)
--- NOTE | 2020-11-07 20:21 | XRAY Report ---
PROCEDURE: Shoulder 3 View LT INDICATIONS: shoulder inj TECHNIQUE: 3 views of the shoulder were acquired. COMPARISON: None. FINDINGS: Bones: No fractures or dislocations. Chronic appearing degenerative changes and possible surgical w idening of the acromial clavicular joint. No suspicious bony lesions. Visualized ribs appear intact. Soft tissues: No suspicious soft tissue calcifications. IMPRESSION: No acute fracture or dislocation. Reviewed by: Sandy Combs MD on 11/07/2020 8:20 PM PST Approved by: Sandy Combs MD on 11/07/2020 8:20 PM PST Station ID: [id number]
[2020-11-07] MEDS ORDERED: oxyCODONE 5 MG TABLET PO STA (20:50)
--- NOTE | 2020-11-07 20:54 | CT Report ---
PROCEDURE: HEAD WO INDICATIONS: fall, ams TECHNIQUE: Noncontrast 4.5 mm thick angled axial sections acquired from the foramen magnum to the vertex. For r adiation dose reduction, the following was used: automated exposure control, adjustment of mA and/or kV according to patient size. COMPARISON: None. FINDINGS: Image quality: Excellent. CSF spaces: Basal cisterns are patent. No extra-axial fluid collections. Ventricles are normal in size and shape. Brain: No midline shift. No intracranial masses or hemorrhage. Del Valle-white matter interface is norm al. Skull and face: Calvarium and visualized facial bones are intact, without suspicious lesions. Sinuses: Visualized sinuses and mastoids are clear. IMPRESSION: 1. No CT evidence of acute intracranial trauma. 2. No fractures. Reviewed by: Sandy Combs MD on 11/07/2020 8:53 PM PST Approved by: Sandy Combs MD on 11/07/2020 8:53 PM PST Station ID: [id number]
--- NOTE | 2020-11-07 22:30 | XRAY Report ---
PROCEDURE: Hip w/Pelvis 2-3V LT INDICATIONS: hip inj TECHNIQUE: AP pelvis with lateral view(s) of the left hip(s). COMPARISON: CT of the pelvis 05/22/2019 FINDINGS: Bones: Decreased mineralization. Severe, chronic appearing degenerative change involving the left hip including bone on bone, remodeling of the acetabulum, significant subcortical cystic changes, spur f ormation, and dystrophic calcifications. A discrete fracture is not identified but may be missed. The re are moderate degenerative changes including marginal spurring and axial migration of the femoral h ead and the right hip. Pelvic ring appears intact. Diffusion of the lower lumbar spine is present. N o suspicious bony lesions. Soft tissues: The visualized bowel gas pattern is normal. No suspicious soft tissue calcifications. IMPRESSION: 1. Severe left hip degenerative changes which all appear chronic. If there is continued concern for o ccult fracture, CT or MRI is recommended. 2. Moderate right hip degenerative change. Reviewed by: Sandy Combs MD on 11/07/2020 10:29 PM PST Approved by: Sandy Combs MD on 11/07/2020 10:29 PM PST Station ID: [id number]
[2020-11-07] MEDS ORDERED: oxyCODONE/ACET 5/325 Prepack 4 PO STA (23:13)
[2020-11-07 23:43] VITALS: BP 166/87
--- NOTE | 2020-11-08 00:20 | ED Physician Documentation ---
ED Addendum - Addendum Addendum: 11/08/20 00:14 Patient endorsed to me by Dr. Naidu for further management and care. Patient awaiting x-ray read for hip pain. Upon my examination the patient is AO x3 with odd affect, no focal neurological deficits on exam. Ambulatory without difficulty. He states that his hip pain has improved with pain medication and we discussed that he has extensive chronic disease of the hip but no acute findings from the fall. He is requesting a small dose of medication to take home since he cannot fill a prescription tonight. (Pharmacies are closed). Patient is planning to follow-up at [facility] wound care for his chronic lower extremity wounds. He also states he will follow up with [facility] for cancer care although he does not have an oncologist as of yet and seems more concerned with pain management than CLL treatment at this time. Strict return precautions given.
== END 2020-11-07 23:42 | disposition home or self-care (01) ==
LOC: EDUNIT# → ED 18:52
DX: M25.512 Pain in left shoulder (principal); M25.552 Pain in left hip; M19.012 Primary osteoarthritis, left shoulder; M86.9 Osteomyelitis, unspecified; C91.10 Chronic lymphocytic leukemia of B-cell type not having achieved remission; E11.42 Type 2 diabetes mellitus with diabetic polyneuropathy; Z79.84 Long term (current) use of oral hypoglycemic drugs
CPT/HCPCS: 70450; 73030; 73502; 99283; 99284; A9270

== ENCOUNTER 2020-11-22 07:58 | Outpatient (CLI) | payer OTHER | END 2020-11-22 07:59 | disposition EMS.NT | LOC: EMS 07:58 | DX: Z03.89 Encounter for observation for other suspected diseases and conditions ruled out (principal) ==

== ENCOUNTER 2020-11-22 17:02 | Emergency (ER) | payer OTHER ==
[2020-11-22 17:14] VITALS: BP 149/93
--- NOTE | 2020-11-22 17:20 | ED Physician Documentation ---
History of Present Illness - Stated complaint Stated Complaint: FIT FOR - Chief complaint Chief Complaint: General - History obtained from History obtained from: Patient, Police - History of Present Illness Timing: Chronic Pain level max: 5 Pain level now: 5 - Additonal information Additional information: Patient is a 60-year-old male who was brought in by police today for "fit for confinement". They state they have nothing specific they would like him checked for just that he is "on a lot of medications". Patient states he has no acute injuries. He has chronic back pain for years that is unchanged. No new numbness or tingling. No loss of bowel or bladder control. Is on multiple narcotic medications at home. Patient states he had his blood sugar checked earlier today and it was around 200. Patient has no complaints Review of Systems Ten Systems: 10 systems reviewed and negative Constitutional: denies: Fever, Chills Ears: denies: Ear pain Nose: denies: Rhinorrhea / runny nose, Congestion Respiratory: denies: Cough GI: denies: Abdominal Pain, Nausea, Vomiting, Diarrhea : denies: Dysuria Skin: denies: Rash Musculoskeletal: reports: Back pain (chronic, unchanged). 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 : Benign prostate hypertrophy, Nocturia, Frequency HEENT: Chronic sinusitis Psych: Depression, Anxiety, Panic attacks, ADD/ADHD, Claustrophobia, Eating disorder Musculoskeletal: Osteoarthritis Derm: None - Past Surgical History Past Surgical History: Yes General: Other Ortho: Shoulder arthroplasty, Other - Present Medications Home Medications: Ambulatory Orders Medication Instructions Recorded Confirmed Bupropion HCl [Wellbutrin Xl] 300 mg PO DAILY 10/22/16 11/22/20 Cyclobenzaprine [Flexeril] 10 mg PO TID PRN 10/22/16 11/22/20 Tizanidine HCl 8 mg PO DAILY PM 10/22/16 11/22/20 Venlafaxine HCl [Effexor Xr] 150 mg PO DAILY 10/22/16 11/22/20 Oxycodone HCl [Oxycontin] 60 mg PO BID 05/22/19 11/22/20 diazePAM [Diazepam] 10 mg PO TID PRN 05/22/19 11/22/20 Aspirin [Adult Low Dose Aspirin EC] 81 mg PO DAILY 05/23/19 11/22/20 Ferrous Sulfate 4 tab PO DAILY 05/23/19 11/22/20 Fluticasone [Flonase] 2 sprays LIZ DAILY PRN 05/23/19 11/22/20 Ondansetron HCl [Zofran] 4 mg PO QID PRN 05/23/19 11/22/20 Carvedilol [Coreg] 12.5 mg PO BID #30 tablet 05/24/19 11/22/20 Magnesium Oxide [Mag Ox] 400 mg PO BIDWM #60 tablet 05/24/19 11/22/20 Metformin HCl [Metformin HCl ER] 1,000 mg PO BID #60 tab.er.24h 05/24/19 11/22/20 Lidocaine Patch 5% [Lidoderm Patch] 1 patch TOP DAILY PRN #10 patch 01/01/20 11/22/20 Losartan [Cozaar] 50 mg PO DAILY 11/04/20 11/22/20 Oxycodone HCl [Oxycontin] 60 mg ORAL BID 11/04/20 11/22/20 Levofloxacin [Levaquin] 500 mg PO DAILY 11/22/20 11/22/20 - Allergies Allergies/Adverse Reactions: Allergies Allergy/AdvReac Type Severity Reaction Status Date / Time No Known Drug Allergies Allergy Verified 11/22/20 17:07 - Social History Does the pt smoke?: No Smoking Status: Never smoker Does the pt drink ETOH?: No Does the pt have substance abuse?: No - Immunizations Immunizations are current?: Yes - POLST Patient has POLST: No POLST Status: Full Code PD ED PE NORMAL - Vitals Vital signs reviewed: Yes - General General: Alert and oriented X 3, No acute distress, Well developed/nourished - HEENT HEENT: Atraumatic, PERRL, Moist mucous membranes - Neck Neck: Supple, no meningeal sign, No bony TTP - Cardiac Cardiac: RRR, Strong equal pulses - Respiratory Respiratory: No respiratory distress, Clear bilaterally - Abdomen Abdomen: Soft, Non tender, Non distended - Back Back: No spinal TTP - Derm Derm: Warm and dry - Extremities Extremities: No calf tenderness / cord - Neuro Neuro: Alert and oriented X 3, 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 2-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, No motor deficit, No sensory deficit, Normal speech Eye Opening: Spontaneous Motor: Obeys Commands Verbal: Oriented GCS Score: 15 - Psych Psych: Normal mood, Normal affect Results - Vitals Vitals: Vital Signs - 24 hr 11/22/20 17:08 Temperature 36.8 C Heart Rate 119 H Respiratory 18 Rate Blood Pressure 149/93 H O2 Saturation 97 Oxygen O2 Source Room air - Labs Labs: Laboratory Tests 11/22/20 17:21 POC Whole Bld Glucose 138 H PD MEDICAL DECISION MAKING - ED course Complexity details: reviewed results, re-evaluated patient, considered differential, d/w patient ED course: Patient with no complaints. No emergency medical condition at this time. Mild tachycardia, states this is not uncommon for him. Blood sugar is mildly elevated, but not indicative of an emergency situation such as DKA. Patient will be booked into residential and follow-up with the residential provider for further care. Attempted to call report to the residential provider, no answer. This document was made in part using voice recognition software. While efforts are made to proofread this document, sound alike and grammatical errors may occur. Departure - Departure Disposition: 01 Home, Self Care Clinical Impression: Encounter for medical screening examination, CLL (chronic lymphocytic leukemia), Chronic prescription opiate use Chronic back pain Qualifiers: Back pain location: low back pain Back pain laterality: bilateral Sciatica presence: without sciatica Qualified Code(s): M54.5 - Low back pain Condition: Good Instructions: ED Chronic Pain Management, ED Neck Back Pain General Follow-Up: Choco Ramsey MD [Primary Care Provider] - ADRIANNE SHAH ARNP [Physician No Access] - Within 3 Days Comments: Joseph appears to have no emergency medical condition at this time. He can follow-up with Adrianne CONTRERAS while in residential for further care. Discharge Date/Time: 11/22/20 17:44
== END 2020-11-22 17:44 | disposition home or self-care (01) ==
LOC: ED 17:02
DX: Z02.89 Encounter for other administrative examinations (principal); C91.10 Chronic lymphocytic leukemia of B-cell type not having achieved remission; M54.5 Low back pain; G89.29 Other chronic pain; E11.42 Type 2 diabetes mellitus with diabetic polyneuropathy; I10 Essential (primary) hypertension; N40.1 Benign prostatic hyperplasia with lower urinary tract symptoms; R35.1 Nocturia; R35.0 Frequency of micturition; Z79.84 Long term (current) use of oral hypoglycemic drugs; Z79.891 Long term (current) use of opiate analgesic
CPT/HCPCS: 99282

== ENCOUNTER 2021-03-13 11:04 | Outpatient (CLI) | payer OTHER | END 2021-03-13 11:05 | disposition critical access hospital (66) | LOC: EMS 11:04 | DX: S81.812A Laceration without foreign body, left lower leg, initial encounter (principal); W22.03XA Walked into furniture, initial encounter; Y93.89 Activity, other specified; Y92.003 Bedroom of unspecified non-institutional (private) residence as the place of occurrence of the external cause | CPT/HCPCS: A0425; A0429 ==

== ENCOUNTER 2021-03-13 11:17 | Emergency (ER) | payer OTHER ==
[2021-03-13] MEDS ORDERED: BUFFERED LIDOCAINE 10 ML SYRINGE SUBQ STA (12:01)
[2021-03-13] MEDS ORDERED: BACITRACIN ZINC OINT 1 PACKET TOP STA (12:01)
--- NOTE | 2021-03-13 12:20 | ED Physician Documentation ---
History of Present Illness - Stated complaint Stated Complaint: LEG LAC - Chief complaint Chief Complaint: Trauma Ext - Additonal information Additional information: 60-year-old male presents the emergency department for deep wound and laceration to his left lower anterior pedroza and leg. He was getting out of bed twisted and tripped striking his leg on the sharp boards of his bed. Patient did not strike his head or lose consciousness. He did bleed quite extensively and has a deep V shaped laceration to the left lower anterior medial portion of the leg with exposed muscle. Patient does have ambulation issues given history of left hip pain as well is repair. Since the incident he has been able to ambulate at his baseline. Tetanus is up-to-date. 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 : Benign prostate hypertrophy, Nocturia, Frequency HEENT: Chronic sinusitis Psych: Depression, Anxiety, Panic attacks, ADD/ADHD, Claustrophobia, Eating disorder Musculoskeletal: Osteoarthritis Derm: None - Past Surgical History Past Surgical History: Yes General: Other Ortho: Shoulder arthroplasty, Other - Present Medications Home Medications: Ambulatory Orders Medication Instructions Recorded Confirmed Bupropion HCl [Wellbutrin Xl] 300 mg PO DAILY 10/22/16 11/22/20 Cyclobenzaprine [Flexeril] 10 mg PO TID PRN 10/22/16 11/22/20 Tizanidine HCl 8 mg PO DAILY PM 10/22/16 11/22/20 Venlafaxine HCl [Effexor Xr] 150 mg PO DAILY 10/22/16 11/22/20 Oxycodone HCl [Oxycontin] 60 mg PO BID 05/22/19 11/22/20 diazePAM [Diazepam] 10 mg PO TID PRN 05/22/19 11/22/20 Aspirin [Adult Low Dose Aspirin EC] 81 mg PO DAILY 05/23/19 11/22/20 Ferrous Sulfate 4 tab PO DAILY 05/23/19 11/22/20 Fluticasone [Flonase] 2 sprays LIZ DAILY PRN 05/23/19 11/22/20 Ondansetron HCl [Zofran] 4 mg PO QID PRN 05/23/19 11/22/20 Carvedilol [Coreg] 12.5 mg PO BID #30 tablet 05/24/19 11/22/20 Magnesium Oxide [Mag Ox] 400 mg PO BIDWM #60 tablet 05/24/19 11/22/20 Metformin HCl [Metformin HCl ER] 1,000 mg PO BID #60 tab.er.24h 05/24/19 11/22/20 Lidocaine Patch 5% [Lidoderm Patch] 1 patch TOP DAILY PRN #10 patch 01/01/20 11/22/20 Losartan [Cozaar] 50 mg PO DAILY 11/04/20 11/22/20 Oxycodone HCl [Oxycontin] 60 mg ORAL BID 11/04/20 11/22/20 levoFLOXacin [Levaquin] 500 mg PO DAILY 11/22/20 11/22/20 cephALEXin [Keflex] 500 mg PO Q6H #28 03/13/21 - Allergies Allergies/Adverse Reactions: Allergies Allergy/AdvReac Type Severity Reaction Status Date / Time No Known Drug Allergies Allergy Verified 03/13/21 11:32 - Social History Does the pt smoke?: No Smoking Status: Never smoker Does the pt drink ETOH?: No Does the pt have substance abuse?: No - Immunizations Immunizations are current?: Yes - POLST Patient has POLST: No POLST Status: Full Code PD ED PE EXPANDED - General General: Alert, No acute distress - Extremities Extremities: Left leg (Deep V shaped laceration left lower medial anterior leg total length of laceration measuring approximately 12 cm. Patient is able to flex and extend the ankle against resistance. Full range of motion of the ankle as well as flexion extension of the knee.), Pedal edema bilateral, Pedal Pulses Present Results - Vitals Vitals: Vital Signs - 24 hr 03/13/21 11:22 Temperature 37.1 C Heart Rate 99 Respiratory 18 Rate Blood Pressure 127/96 H O2 Saturation 98 Oxygen O2 Source Room air Procedures - Laceration (location) left lower leg Length in cm: 16 Wound type: Linear, Into muscle, Clean, Exposure of bone Neurovascular status: Sensory intact, Motor intact Tendon involvement: Tendon intact Anesthesia: Lidocaine 1% Wound preparation: Chlorhexadine, Irrigated copiously NS, To the base Skin layer closure: Jarred (21) Other: No complications, Tetanus UTD PD MEDICAL DECISION MAKING - ED course Complexity details: re-evaluated patient, d/w patient ED course: 6-year-old male presents emergency department for evaluation of fairly deep and extensive left lower leg laceration sustained when he fell out of his bed and hit the boards on his nightstand. It was a deep V-shaped lack that it extended to the muscle though there was a small area of tibia seen. Bleeding was controlled with pressure. This gentleman was given a gram of ceftriaxone here in the emergency department. The wound was closed with 21 jarred. This is an avulsion laceration and patient was warned that the skin flap may not survive. He will be discharged with prescription for Keflex given the hyper concern for infection in this wound. Advised staple removal in 10 days. Emergent return precautions discussed for concerns of infection, fever redness milky drainage worsening p ain. Departure - Departure Disposition: 01 Home, Self Care Clinical Impression: Laceration of left leg Qualifiers: Encounter type: initial encounter Qualified Code(s): S81.812A - Laceration without foreign body, left lower leg, initial encounter Condition: Stable Record reviewed to determine appropriate education?: Yes Instructions: ED Laceration All Follow-Up: Choco Ramsey MD [Primary Care Provider] - Prescriptions: cephALEXin [Keflex] 500 mg PO Q6H #28 Comments: Joseph the laceration of your lower leg is fairly deep and involved. We were able to close it with 21 jarred. I would like the jarred to remain in place for about 10 days. Because of the depth and extent of this wound there is a higher risk for infection therefore I have given you an injection of ceftriaxone here in the emergency department and would like you to fill the prescription for the cephalexin and begin taking 4 times a day as directed. In 24 hours you may shower normally. After showering pat the wound dry place a thin layer of antibiotic ointment and then a simple gauze bandage. If at any point you have concerns of infection, fevers, redness, milky drainage or increased pain please return immediately to the ER for a second look. The jarred should be removed in about 10 days.
[2021-03-13] MEDS ORDERED: cefTRIAXone 1 GM VIAL IM STA (12:29)
[2021-03-13] MEDS ORDERED: LIDOCAINE 1% 2 ML VIAL MC ONE (12:29)
[2021-03-13 13:24] VITALS: BP 138/77
== END 2021-03-13 13:19 | disposition home or self-care (01) ==
LOC: EDUNIT# → ED 11:17
DX: S81.812A Laceration without foreign body, left lower leg, initial encounter (principal); W06.XXXA Fall from bed, initial encounter; W22.03XA Walked into furniture, initial encounter; Y92.003 Bedroom of unspecified non-institutional (private) residence as the place of occurrence of the external cause; I10 Essential (primary) hypertension; E11.42 Type 2 diabetes mellitus with diabetic polyneuropathy; Z79.84 Long term (current) use of oral hypoglycemic drugs
CPT/HCPCS: 12005; 96372; 99283; A9270

== ENCOUNTER 2021-05-25 10:07 | Emergency (ER) | payer MEDICARE, OTHER ==
--- NOTE | 2021-05-25 11:59 | XRAY Report ---
PROCEDURE: Chest 1 View X-Ray INDICATIONS: Chest pain TECHNIQUE: One view of the chest was acquired. COMPARISON: CT chest 12/31/2019 FINDINGS: Surgical changes and devices: None. Lungs and pleura: Patchy opacities are present within the lungs bilaterally, more consolidated in the right base. In addition, there is a mild right effusion and trace blunting of the left costophrenic angle. Mediastinum: Mediastinal contours appear normal. Heart size is mildly prominent. Bones and chest wall: No suspicious bony lesions. Overlying soft tissues appear unremarkable. IMPRESSION: Bilateral pulmonary opacities with consolidative opacity and effusion in the right base. Overall appe arance is most suspicious for multifocal pneumonia. Recommend interval follow-up to document resoluti on and exclude presence of underlying mass lesion. Reviewed by: Shi Tim MD on 05/25/2021 11:57 AM PDT Approved by: Shi Tim MD on 05/25/2021 11:57 AM PDT Station ID: [id number]
[2021-05-25 12:26] LABS: EOSINOPHILS % (AUTO) 0.1 %; HGB - HEMOGLOBIN 8.2 g/dL (14.0-18.0); LYMPHOCYTES % (AUTO) 88.9 %; MEAN CORPUSCULAR HEMOGLOBIN 24.2 pg (27.0-31.0); MEAN CORPUSCULAR HGB CONC 26.5 g/dL (32.0-36.0); MEAN CORPUSCULAR VOLUME 91.4 fL (80.0-94.0); MEAN PLATELET VOLUME 9.9 fL (7.4-11.4); MONOCYTES % (AUTO) 6.4 %; NEUTROPHILS % (AUTO) 4.1 %; PLT - PLATELET COUNT 333 10^3/uL (130-450); RED BLOOD COUNT 3.39 10^6/uL (4.70-6.10); RED CELL DISTRIBUTION WIDTH 16.8 % (12.0-15.0)
[2021-05-25 12:34] LABS: WHITE BLOOD COUNT 248.1 x10^3/uL (4.8-10.8)
[2021-05-25 12:35] LABS: SLIDE REVIEW? Indicated
[2021-05-25 12:36] LABS: ABNORMAL LYMPHS % (MANUAL) 0 %; BAND NEUTROPHILS % (MANUAL) 0 %
[2021-05-25 12:40] LABS: ALBUMIN 3.9 g/dL (3.2-5.5); ALBUMIN/GLOBULIN RATIO 1.2 (1.0-2.2); ALKALINE PHOSPHATASE 139 IU/L (42-121); ALT ALANINE AMINOTRANSFERASE < 10 IU/L (10-60); AST ASPARTATE AMINOTRANSFERASE 15 IU/L (10-42); BILIRUBIN,TOTAL 1.1 mg/dL (0.2-1.0); BUN - BLOOD UREA NITROGEN 10 mg/dL (6-20); CALCIUM 8.5 mg/dL (8.5-10.3); CARBON DIOXIDE - CO2 25 mmol/L (21-32); CHLORIDE 105 mmol/L (101-111); CREATININE 1.1 mg/dL (0.6-1.2); GFR - MDRD 68 (>89); GLUCOSE 158 mg/dL (70-100); LIPASE 21 U/L (22-51); SODIUM 143 mmol/L (135-145); TOTAL PROTEIN 7.2 g/dL (6.7-8.2)
[2021-05-25 12:51] LABS: DIFFERENTIAL COMMENT MANUAL DIFFERENTIAL; LYMPHOCYTES # (MANUAL) 213.4 10^3/uL (1.5-3.5); LYMPHOCYTES % (MANUAL) 80 %; MONOCYTES # (MANUAL) 7.4 10^3/uL (0.0-1.0); NEUTROPHILS # (MANUAL) 27.3 10^3/uL (1.5-6.6); REACTIVE LYMPHS % (MANUAL) 6 %
--- NOTE | 2021-05-25 13:08 | ED Physician Documentation ---
PD HPI DYSPNEA - Stated complaint Stated Complaint: SOA - Chief complaint Chief Complaint: Cardiac - History obtained from History obtained from: Patient - History of Present Illness Timing - onset: How many days ago (3) Timing - onset during: Rest Timing - duration: Days (3) Timing - details: Gradual onset Pain level max: 8 Pain level now: 8 (Pain, unchanged from baseline) Associated symptoms: Anxiety. No: Fever, Wheezing, Chest pain / discomfort, Palpitations, Diaphoresis, Bilateral edema - Additional information Additional information: Patient is a 60-year-old male who states that he has been sick for the past 3 days. Generally not feeling well. Has felt short of breath as well. Mild cough. No fevers. Nothing seems to make it better or worse. He states he is out of his chronic pain medication, OxyContin 60 mg p.o. twice daily, oxycodone 20 mg p.o. up to 20 tabs per day. He also states that he is out of his Valium, 10 mg p.o. 3 times daily. He states he gets a refill from his doctor on . 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 : Benign prostate hypertrophy, Nocturia, Frequency HEENT: Chronic sinusitis Psych: Depression, Anxiety, Panic attacks, ADD/ADHD, Claustrophobia, Eating disorder Musculoskeletal: Osteoarthritis Derm: None - Past Surgical History Past Surgical History: Yes General: Other Ortho: Shoulder arthroplasty, Other - Present Medications Home Medications: Ambulatory Orders Medication Instructions Recorded Confirmed Bupropion HCl [Wellbutrin Xl] 300 mg PO DAILY 10/22/16 11/22/20 Cyclobenzaprine [Flexeril] 10 mg PO TID PRN 10/22/16 11/22/20 Tizanidine HCl 8 mg PO DAILY PM 10/22/16 11/22/20 Venlafaxine HCl [Effexor Xr] 150 mg PO DAILY 10/22/16 11/22/20 Oxycodone HCl [Oxycontin] 60 mg PO BID 05/22/19 11/22/20 diazePAM [Diazepam] 10 mg PO TID PRN 05/22/19 11/22/20 Aspirin [Adult Low Dose Aspirin EC] 81 mg PO DAILY 05/23/19 11/22/20 Ferrous Sulfate 4 tab PO DAILY 05/23/19 11/22/20 Fluticasone [Flonase] 2 sprays LIZ DAILY PRN 05/23/19 11/22/20 Ondansetron HCl [Zofran] 4 mg PO QID PRN 05/23/19 11/22/20 Carvedilol [Coreg] 12.5 mg PO BID #30 tablet 05/24/19 11/22/20 Magnesium Oxide [Mag Ox] 400 mg PO BIDWM #60 tablet 05/24/19 11/22/20 Metformin HCl [Metformin HCl ER] 1,000 mg PO BID #60 tab.er.24h 05/24/19 11/22/20 Lidocaine Patch 5% [Lidoderm Patch] 1 patch TOP DAILY PRN #10 patch 01/01/20 11/22/20 Losartan [Cozaar] 50 mg PO DAILY 11/04/20 11/22/20 Oxycodone HCl [Oxycontin] 60 mg ORAL BID 11/04/20 11/22/20 levoFLOXacin [Levaquin] 500 mg PO DAILY 11/22/20 11/22/20 cephALEXin [Keflex] 500 mg PO Q6H #28 03/13/21 Azithromycin [Zithromax] 250 mg PO DAILY #4 tablet 05/25/21 Cefpodoxime Proxetil [Vantin] 100 mg PO Q12H #20 tablet 05/25/21 - Allergies Allergies/Adverse Reactions: Allergies Allergy/AdvReac Type Severity Reaction Status Date / Time No Known Drug Allergies Allergy Verified 05/25/21 10:43 - Social History Does the pt smoke?: No Smoking Status: Never smoker Does the pt drink ETOH?: No Does the pt have substance abuse?: No - Immunizations Immunizations are current?: Yes - POLST Patient has POLST: No POLST Status: Full Code PD ED PE NORMAL - Vitals Vital signs reviewed: Yes - General General: Alert and oriented X 3, No acute distress, Well developed/nourished - HEENT HEENT: PERRL, Moist mucous membranes - Neck Neck: Supple, no meningeal sign - Cardiac Cardiac: RRR, Strong equal pulses - Respiratory Respiratory: No respiratory distress, Clear bilaterally - Abdomen Abdomen: Soft, Non tender, Non distended - Derm Derm: Warm and dry - Extremities Extremities: No edema - Neuro Neuro: Alert and oriented X 3 - Psych Psych: Normal mood, Normal affect Results - Vitals Vitals: Vital Signs - 24 hr 05/25/21 05/25/21 05/25/21 10:40 12:43 14:00 Temperature 37.1 C Heart Rate 87 89 90 Respiratory 20 13 34 H Rate Blood Pressure 185/92 H 146/82 H 175/103 H O2 Saturation 96 98 92 05/25/21 05/25/21 05/25/21 14:41 14:42 15:57 Temperature Heart Rate 96 94 95 Respiratory 25 H 24 22 Rate Blood Pressure 180/102 H 180/102 H 190/105 H O2 Saturation 88 L 93 92 05/25/21 16:51 Temperature Heart Rate 78 Respiratory 26 H Rate Blood Pressure 150/96 H O2 Saturation 92 Oxygen O2 Source Room air - Labs Labs: Laboratory Tests 05/25/21 05/25/21 05/25/21 12:20 12:20 12:20 WBC 248.1 H* RBC 3.39 L Hgb 8.2 L Hct 31.0 L MCV 91.4 MCH 24.2 L MCHC 26.5 L RDW 16.8 H Plt Count 333 MPV 9.9 Neut # (Auto) Not Reportable Lymph # (Auto) Not Reportable Bartholomew # (Auto) Not Reportable Eos # (Auto) Not Reportable Baso # (Auto) Not Reportable Absolute Nucleated RBC Not Reportable Total Counted 100 Band Neuts % (Manual) 0 Reactive Lymphs % (Man) 6 Abnorm Lymph % (Manual) 0 Nucleated RBC % Not Reportable Neutrophils # (Manual) 27.3 H Lymphocytes # (Manual) 213.4 H Monocytes # (Manual) 7.4 H Eosinophils # (Manual) 0.0 Basophils # (Manual) 0.0 Differential Comment MANUAL DIFFERENTIAL Manual Slide Review Indicated Sodium 143 Potassium 4.0 Chloride 105 Carbon Dioxide 25 Anion Gap 13.0 BUN 10 Creatinine 1.1 Estimated GFR (MDRD) 68 L Glucose 158 H Calcium 8.5 Total Bilirubin 1.1 H AST 15 ALT < 10 L Alkaline Phosphatase 139 H Troponin I High Sens 7.2 Total Protein 7.2 Albumin 3.9 Globulin 3.3 Albumin/Globulin Ratio 1.2 Lipase 21 L Nasal Adenovirus (PCR) Nasal B. parapertussis DNA (PCR) Nasal Coronavir 229E PCR Nasal Coronavir HKU1 PCR Nasal Coronavir NL63 PCR Nasal Coronavir OC43 PCR Nasal Enterovir/Rhinovir PCR Nasal Influenza B PCR Nasal Influenza A PCR Nasal Parainfluen 1 PCR Nasal Parainfluen 2 PCR Nasal Parainfluen 3 PCR Nasal Parainfluen 4 PCR Nasal RSV (PCR) Nasal B.pertussis DNA PCR Nasal C.pneumoniae (PCR) Liz Human Metapneumo PCR Nasal M.pneumoniae (PCR) Nasal SARS-CoV-2 (PCR) 05/25/21 14:00 WBC RBC Hgb Hct MCV MCH MCHC RDW Plt Count MPV Neut # (Auto) Lymph # (Auto) Bartholomew # (Auto) Eos # (Auto) Baso # (Auto) Absolute Nucleated RBC Total Counted Band Neuts % (Manual) Reactive Lymphs % (Man) Abnorm Lymph % (Manual) Nucleated RBC % Neutrophils # (Manual) Lymphocytes # (Manual) Monocytes # (Manual) Eosinophils # (Manual) Basophils # (Manual) Differential Comment Manual Slide Review Sodium Potassium Chloride Carbon Dioxide Anion Gap BUN Creatinine Estimated GFR (MDRD) Glucose Calcium Total Bilirubin AST ALT Alkaline Phosphatase Troponin I High Sens Total Protein Albumin Globulin Albumin/Globulin Ratio Lipase Nasal Adenovirus (PCR) NOT DETECTED Nasal B. parapertussis DNA (PCR) NOT DETECTED Nasal Coronavir 229E PCR NOT DETECTED Nasal Coronavir HKU1 PCR NOT DETECTED Nasal Coronavir NL63 PCR NOT DETECTED Nasal Coronavir OC43 PCR NOT DETECTED Nasal Enterovir/Rhinovir PCR NOT DETECTED Nasal Influenza B PCR NOT DETECTED Nasal Influenza A PCR NOT DETECTED Nasal Parainfluen 1 PCR NOT DETECTED Nasal Parainfluen 2 PCR NOT DETECTED Nasal Parainfluen 3 PCR NOT DETECTED Nasal Parainfluen 4 PCR NOT DETECTED Nasal RSV (PCR) NOT DETECTED Nasal B.pertussis DNA PCR NOT DETECTED Nasal C.pneumoniae (PCR) NOT DETECTED Liz Human Metapneumo PCR NOT DETECTED Nasal M.pneumoniae (PCR) NOT DETECTED Nasal SARS-CoV-2 (PCR) NOT DETECTED - Rads (name of study) Chest x-ray Radiology: Final report received, EMP read contemporaneously PD MEDICAL DECISION MAKING - ED course Complexity details: reviewed results, re-evaluated patient, considered differential, d/w patient ED course: 60-year-old male with what appears to be multifocal pneumonia. We will start on antibiotics. No hypoxia or respiratory distress. 98% on room air walking in the room. Negative Covid test. Has not had his vaccination. Encouraged him to get his vaccination. Patient will follow up with his doctor for further pain medication. Patient is well-appearing, nontoxic. Patient counseled regarding signs and symptoms for which I believe and urgent re-evaluation would be necessary. Patient with good understanding of and agreement to plan and is comfortable going home at this time This document was made in part using voice recognition software. While efforts are made to proofread this document, sound alike and grammatical errors may occur. MPRESSION: Bilateral pulmonary opacities with consolidative opacity and effusion in the right base. Overall appearance is most suspicious for multifocal pneumonia. Recommend interval follow-up to document resolution and exclude presence of underlying mass lesion. Departure - Departure Disposition: 01 Home, Self Care Clinical Impression: Pneumonia Qualifiers: Pneumonia type: due to unspecified organism Laterality: bilateral Lung location: unspecified part of lung Qualified Code(s): J18.9 - Pneumonia, unspecified organism Condition: Good Instructions: ED Pneumonia Adult Follow-Up: Choco Ramsey MD [Primary Care Provider] - Tomorrow Prescriptions: Cefpodoxime Proxetil [Vantin] 100 mg PO Q12H #20 tablet Azithromycin [Zithromax] 250 mg PO DAILY #4 tablet Comments: Your prescriptions were sent to [facility] in [place]. Please follow-up with your doctor for further care. Any further pain medication will need to come from your doctor as well. It is important that you have a follow-up chest x-ray with your doctor after completion of treatment. She may want to perform a chest CT as well. Your chest xray: Bilateral pulmonary opacities with consolidative opacity and effusion in the right base. Overall appearance is most suspicious for multifocal pneumonia. Recommend interval follow-up to document resolution and exclude presence of underlying mass lesion. Discharge Date/Time: 05/25/21 16:51
[2021-05-25 15:19] LABS: B. PARAPERTUSSIS- RESP PCR PAN NOT DETECTED; B. PERTUSSIS- RESP PCR PANEL NOT DETECTED; C. PNEUMONIAE- RESP PCR PANEL NOT DETECTED; CORONAVIRUS 229E-RESP PCR NOT DETECTED; CORONAVIRUS HKU1-RESP PCR NOT DETECTED; CORONAVIRUS NL63-RESP PCR NOT DETECTED; CORONAVIRUS OC43-RESP PCR NOT DETECTED; HUMAN METAPNEUMOVIRUS NOT DETECTED; INFLUENZA A- RESP PCR PANEL NOT DETECTED; INFLUENZA B - RESP PCR PANEL NOT DETECTED; M. PNEUMONIAE- RESP PCR PANEL NOT DETECTED; PARAINFLUENZA VIRUS 1 NOT DETECTED; PARAINFLUENZA VIRUS 2 NOT DETECTED; PARAINFLUENZA VIRUS 3 NOT DETECTED; PARAINFLUENZA VIRUS 4 NOT DETECTED; RHINOVIRUS/ENTEROVIRUS NOT DETECTED; RSV- RESP PCR PANEL NOT DETECTED; SARS-CoV-2 -RESP PCR PANEL NOT DETECTED
[2021-05-25] MEDS ORDERED: diazePAM 5 MG TABLET PO STA (16:01)
[2021-05-25] MEDS ORDERED: oxyCODONE 5 MG TABLET PO STA (16:01)
[2021-05-25] MEDS ORDERED: CEFPODOXIME PROXETIL 100 MG TABLET PO STA (16:03)
[2021-05-25] MEDS ORDERED: AZITHROMYCIN 250 MG TABLET PO STA (16:03)
[2021-05-25 16:53] VITALS: BP 150/96
== END 2021-05-25 16:51 | disposition home or self-care (01) ==
LOC: ED 10:07
DX: J18.9 Pneumonia, unspecified organism (principal); Z20.822 Contact with and (suspected) exposure to COVID-19
CPT/HCPCS: 0202U; 36415; 71045; 80053; 83690; 84484; 85025; 93005; 99284; A9270

== ENCOUNTER 2021-10-22 17:02 | Outpatient (CLI) | payer OTHER | END 2021-10-22 17:03 | disposition EMS.NT | LOC: EMS 17:02 | DX: S81.802A Unspecified open wound, left lower leg, initial encounter (principal); W18.30XA Fall on same level, unspecified, initial encounter; Y92.003 Bedroom of unspecified non-institutional (private) residence as the place of occurrence of the external cause ==

== ENCOUNTER 2021-11-16 12:02 | Emergency (ER) | payer OTHER ==
--- OUTSIDE RECORDS SUMMARY | 2021-11-16 12:26 | EXTERNAL MEDICAL SUMMARY RPT | Continuity of Care Document ---
:1960 Author Organization [place] Address [address] [place] [address] Phone Allergies No information. Encounters No information. Medications No information. 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
[2021-11-16 12:30] VITALS: BP 134/64
[2021-11-16] MEDS ORDERED: BACITRACIN ZINC OINT 1 PACKET TOP STA (13:27)
--- NOTE | 2021-11-16 13:30 | ED Physician Documentation ---
PD HPI SKIN - Stated complaint Stated Complaint: RT HAND LAC - Chief complaint Chief Complaint: Laceration - History obtained from History obtained from: Patient - Additional information Additional information: The patient comes to the emergency department chief complaint of right thumb laceration after cutting himself on a light fixture. The patient is not injured in any other way. He denies any trouble moving his thumb. He is not sure when his last tetanus shot was. No other injuries or complaints at this time. Review of Systems Ten Systems: 10 systems reviewed and negative Constitutional: reports: Reviewed and negative Eyes: reports: Reviewed and negative Ears: reports: Reviewed and negative Nose: reports: Reviewed and negative Throat: reports: Reviewed and negative Cardiac: reports: Reviewed and negative Respiratory: reports: Reviewed and negative GI: reports: Reviewed and negative : reports: Reviewed and negative Skin: reports: Laceration (s) Musculoskeletal: reports: Reviewed and negative Neurologic: reports: Reviewed and negative Psychiatric: reports: Reviewed and negative Endocrine: reports: Reviewed and negative Immunocompromised: reports: Reviewed and negative PD PAST MEDICAL HISTORY - Past Medical History Cardiovascular: Hypertension Respiratory: None Neuro: Headaches, Peripheral neuropathy Endocrine/Autoimmune: Type 2 diabetes GI: GERD, Ulcers 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 : Benign prostate hypertrophy, Nocturia, Frequency HEENT: Chronic sinusitis Psych: Depression, Anxiety, Panic attacks, ADD/ADHD, Claustrophobia, Eating disorder Musculoskeletal: Osteoarthritis Derm: None - Past Surgical History Past Surgical History: Yes General: Other Ortho: Shoulder arthroplasty, Other - Present Medications Home Medications: Ambulatory Orders Medication Instructions Recorded Confirmed Bupropion HCl [Wellbutrin Xl] 300 mg PO DAILY 10/22/16 11/22/20 Cyclobenzaprine [Flexeril] 10 mg PO TID PRN 10/22/16 11/22/20 Tizanidine HCl 8 mg PO DAILY PM 10/22/16 11/22/20 Venlafaxine HCl [Effexor Xr] 150 mg PO DAILY 10/22/16 11/22/20 Oxycodone HCl [Oxycontin] 60 mg PO BID 05/22/19 11/22/20 diazePAM [Diazepam] 10 mg PO TID PRN 05/22/19 11/22/20 Aspirin [Adult Low Dose Aspirin EC] 81 mg PO DAILY 05/23/19 11/22/20 Ferrous Sulfate 4 tab PO DAILY 05/23/19 11/22/20 Fluticasone [Flonase] 2 sprays LIZ DAILY PRN 05/23/19 11/22/20 ondansetron HCL [Zofran] 4 mg PO QID PRN 05/23/19 11/22/20 Carvedilol [Coreg] 12.5 mg PO BID #30 tablet 05/24/19 11/22/20 Magnesium Oxide [Mag Ox] 400 mg PO BIDWM #60 tablet 05/24/19 11/22/20 Metformin HCl [Metformin HCl ER] 1,000 mg PO BID #60 tab.er.24h 05/24/19 11/22/20 Lidocaine Patch 5% [Lidoderm Patch] 1 patch TOP DAILY PRN #10 patch 01/01/20 11/22/20 Losartan [Cozaar] 50 mg PO DAILY 11/04/20 11/22/20 Oxycodone HCl [Oxycontin] 60 mg ORAL BID 11/04/20 11/22/20 levoFLOXacin [Levaquin] 500 mg PO DAILY 11/22/20 11/22/20 cephALEXin [Keflex] 500 mg PO Q6H #28 03/13/21 Azithromycin [Zithromax] 250 mg PO DAILY #4 tablet 05/25/21 Cefpodoxime Proxetil [Vantin] 100 mg PO Q12H #20 tablet 05/25/21 - Allergies Allergies/Adverse Reactions: Allergies Allergy/AdvReac Type Severity Reaction Status Date / Time ibuprofen AdvReac Unknown Verified 11/16/21 12:31 - Social History Does the pt smoke?: No Smoking Status: Never smoker Does the pt drink ETOH?: No Does the pt have substance abuse?: No - Immunizations Immunizations are current?: Yes - POLST Patient has POLST: No POLST Status: Full Code PD ED PE NORMAL - Vitals Vital signs reviewed: Yes - General General: Alert and oriented X 3, No acute distress, Well developed/nourished - HEENT HEENT: Atraumatic, PERRL, EOMI, Moist mucous membranes - Neck Neck: Supple, no meningeal sign - Cardiac Cardiac: Strong equal pulses - Respiratory Respiratory: No respiratory distress - Derm Derm: Normal color, Warm and dry, No rash, Other (3.5 cm linear laceration over lateral aspect of right first MCP joint. No foreign body in the wound. No vis ualization of bone in floor of wound.) - Extremities Extremities: No deformity, Normal ROM s pain, No edema, Other (Flexion and extension both intact at all joints of right thumb with resistance.) - Neuro Neuro: Alert and oriented X 3, No motor deficit, No sensory deficit - Psych Psych: Normal mood, Normal affect Results - Vitals Vitals: Vital Signs - 24 hr 11/16/21 12:26 Temperature 36.2 C L Heart Rate 62 Respiratory 16 Rate Blood Pressure 134/64 H O2 Saturation 97 Oxygen O2 Source Room air Procedures - Laceration (location) Right thumb Length in cm: 3.5 Wound type: Linear, Into subcut fat, Clean Neurovascular status: Sensory intact, Motor intact, Vascular intact (No active bleeding) Tendon involvement: Tendon intact Anesthesia: Lidocaine 1% Wound preparation: Hibiclens, Irrigated copiously NS, Wound explored, To the base Skin layer closure: Nylon, Interrupted, Size #-0 - enter number (4.0), Sutures - enter # (7) Other: Patient tolerated well, No complications, Neurovascular intact, Dressing applied, Tetanus UTD (Last tetanus July 2020) PD MEDICAL DECISION MAKING - ED course Complexity details: considered differential, d/w patient ED course: The patient's laceration was repaired as above. He requested a tetanus booster, but it was found he had received a tetanus shot back in July 2020. We have discussed wound care at home and the timeline for suture removal. We have discussed the usual indications for return. Departure - Departure Disposition: 01 Home, Self Care Clinical Impression: Laceration Condition: Stable Instructions: ED Laceration Hand Comments: Your laceration has been repaired with 7 nonabsorbable sutures today. This means that you will need to have the sutures removed and they will not absorb on t heir own. This should be done in about 7 days. You may go to your primary care physician's office or to walk-in/urgent care. If you are unable to be seen at either of these venues, you may return to the emergency department if necessary. You may let water and soap run over the wound but please do not rub, scrub, or immerse the wound until sutures are removed. This is in order to prevent infection. Our records indicate that you actually had a tetanus shot in July 2020, so you will not need another one for about 8 years.
== END 2021-11-16 13:41 | disposition home or self-care (01) ==
LOC: ED 12:02
DX: S61.011A Laceration without foreign body of right thumb without damage to nail, initial encounter (principal); W26.8XXA Contact with other sharp object(s), not elsewhere classified, initial encounter
CPT/HCPCS: 12002; 99281; A9270

== ENCOUNTER 2022-01-04 12:15 | Outpatient (CLI) | payer OTHER, MEDICAID | END 2022-01-04 12:16 | disposition critical access hospital (66) | LOC: EMS 12:15 | DX: R06.02 Shortness of breath (principal); R52 Pain, unspecified; R53.1 Weakness; R63.0 Anorexia; R50.9 Fever, unspecified | CPT/HCPCS: A0425; A0427 ==

== ENCOUNTER 2022-01-04 12:26 | Inpatient (IN) | payer OTHER, MEDICAID ==
[2022-01-04] MEDS ORDERED: HYDROmorphone 1 MG/ML CARPUJECT IVP STA (12:42)
[2022-01-04] MEDS ORDERED: SODIUM CHLORIDE 0.9% 1,000 ML IV STA ×3 (12:42→14:07)
[2022-01-04] MEDS ORDERED: ACETAMINOPHEN 500 MG TABLET PO STA (12:45)
--- NOTE | 2022-01-04 12:45 | ED Physician Documentation ---
PD HPI CHEST PAIN - Stated complaint Stated Complaint: WEAKESS/SOA - Chief complaint Chief Complaint: Resp - History obtained from History obtained from: Patient - Additional information Additional information: 61-year-old gentleman with CLL undergoing therapy, he is not sure what. His oncologist at the outset is at [facility]. He comes in complaining of productive cough with shortness of breath fevers and chills since last night. Very dry mouth. Exacerbations of chronic back and back and hip pain. 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 : Benign prostate hypertrophy, Nocturia, Frequency HEENT: Chronic sinusitis Psych: Depression, Anxiety, Panic attacks, ADD/ADHD, Claustrophobia, Eating disorder Musculoskeletal: Osteoarthritis Derm: None - Past Surgical History Past Surgical History: Yes General: Other Ortho: Shoulder arthroplasty, Other - Present Medications Home Medications: Ambulatory Orders Medication Instructions Recorded Confirmed Bupropion HCl [Wellbutrin Xl] 300 mg PO DAILY 10/22/16 11/22/20 Cyclobenzaprine [Flexeril] 10 mg PO TID PRN 10/22/16 11/22/20 Tizanidine HCl 8 mg PO DAILY PM 10/22/16 11/22/20 Venlafaxine HCl [Effexor Xr] 150 mg PO DAILY 10/22/16 11/22/20 Oxycodone HCl [Oxycontin] 60 mg PO BID 05/22/19 11/22/20 diazePAM [Diazepam] 10 mg PO TID PRN 05/22/19 11/22/20 Aspirin [Adult Low Dose Aspirin EC] 81 mg PO DAILY 05/23/19 11/22/20 Ferrous Sulfate 4 tab PO DAILY 05/23/19 11/22/20 Fluticasone [Flonase] 2 sprays LIZ DAILY PRN 05/23/19 11/22/20 ondansetron HCL [Zofran] 4 mg PO QID PRN 05/23/19 11/22/20 Carvedilol [Coreg] 12.5 mg PO BID #30 tablet 05/24/19 11/22/20 Magnesium Oxide [Mag Ox] 400 mg PO BIDWM #60 tablet 05/24/19 11/22/20 Metformin HCl [Metformin HCl ER] 1,000 mg PO BID #60 tab.er.24h 05/24/19 11/22/20 Lidocaine Patch 5% [Lidoderm Patch] 1 patch TOP DAILY PRN #10 patch 01/01/20 11/22/20 Losartan [Cozaar] 50 mg PO DAILY 11/04/20 11/22/20 Oxycodone HCl [Oxycontin] 60 mg ORAL BID 11/04/20 11/22/20 levoFLOXacin [Levaquin] 500 mg PO DAILY 11/22/20 11/22/20 cephALEXin [Keflex] 500 mg PO Q6H #28 03/13/21 Azithromycin [Zithromax] 250 mg PO DAILY #4 tablet 05/25/21 Cefpodoxime Proxetil [Vantin] 100 mg PO Q12H #20 tablet 05/25/21 - Allergies Allergies/Adverse Reactions: Allergies Allergy/AdvReac Type Severity Reaction Status Date / Time ibuprofen AdvReac Unknown Verified 01/04/22 12:40 - Social History Does the pt smoke?: No Smoking Status: Never smoker Does the pt drink ETOH?: No Does the pt have substance abuse?: No - Immunizations Immunizations are current?: Yes - POLST Patient has POLST: No POLST Status: Full Code PD ED PE NORMAL - Vitals Vital signs reviewed: Yes - General General: Alert and oriented X 3, Other (He appears slightly pale and breathless. Rate laying on his right side.) - HEENT HEENT: PERRL, EOMI, Other (Dry mucous membranes) - Neck Neck: Supple, no meningeal sign, No bony TTP - Cardiac Cardiac: Other (Tachycardic, regular, no murmur) - Respiratory Respiratory: Other (Coarse rhonchi at the right base) - Abdomen Abdomen: Soft, Non tender - Back Back: No CVA TTP, No spinal TTP - Derm Derm: Normal color, Warm and dry - Extremities Extremities: No edema, No calf tenderness / cord - Neuro Neuro: Alert and oriented X 3, Normal speech Results - Vitals Vitals: Vital Signs - 24 hr 04/25/22 04/25/22 04/25/22 12:34 12:53 14:09 Temperature 40.1 C H 39.2 C H Heart Rate 114 H 110 H 101 H Respiratory 18 26 H 19 Rate Blood Pressure 174/65 H 174/90 H 160/92 H O2 Saturation 92 94 01/04/22 01/04/22 14:54 15:22 Temperature 38.7 C H Heart Rate 98 96 Respiratory 22 23 Rate Blood Pressure 158/75 H 130/65 O2 Saturation 94 94 Oxygen O2 Source Room air - EKG (time done) 1310 Rate: Rate (enter#) (110) Rhythm: Sinus tachycardia [place]: Normal Intervals: LBBB (incomplete) QRS: LVH Ischemia: Non specific changes - Labs Labs: Laboratory Tests 01/04/22 01/04/22 01/04/22 12:45 13:05 13:10 WBC 2.2 L RBC 3.71 L Hgb 10.9 L Hct 32.7 L MCV 88.1 MCH 29.4 MCHC 33.3 RDW 14.0 Plt Count 405 MPV 11.0 Neut # (Auto) 1.6 Lymph # (Auto) 0.2 L Cook # (Auto) 0.4 Eos # (Auto) 0.0 Baso # (Auto) 0.0 Absolute Nucleated RBC 0.00 Nucleated RBC % 0.0 Manual Slide Review Indicated RBC Morph Micro Appear 2+ ANISOCYTOSIS PT 11.4 INR 1.0 Sodium Potassium Chloride Carbon Dioxide Anion Gap BUN Creatinine Estimated GFR (MDRD) Glucose Lactic Acid Calcium Total Bilirubin AST ALT Alkaline Phosphatase Total Protein Albumin Globulin Albumin/Globulin Ratio Nasal Adenovirus (PCR) NOT DETECTED Nasal B. parapertussis DNA (PCR) NOT DETECTED Nasal Coronavir 229E PCR NOT DETECTED Nasal Coronavir HKU1 PCR NOT DETECTED Nasal Coronavir NL63 PCR NOT DETECTED Nasal Coronavir OC43 PCR NOT DETECTED Nasal Enterovir/Rhinovir PCR NOT DETECTED Nasal Influenza B PCR NOT DETECTED Nasal Influenza A PCR NOT DETECTED Nasal Parainfluen 1 PCR NOT DETECTED Nasal Parainfluen 2 PCR NOT DETECTED Nasal Parainfluen 3 PCR NOT DETECTED Nasal Parainfluen 4 PCR NOT DETECTED Nasal RSV (PCR) NOT DETECTED Nasal B.pertussis DNA PCR NOT DETECTED Nasal C.pneumoniae (PCR) NOT DETECTED Liz Human Metapneumo PCR NOT DETECTED Nasal M.pneumoniae (PCR) NOT DETECTED Nasal SARS-CoV-2 (PCR) NOT DETECTED 01/04/22 01/04/22 13:10 13:10 WBC RBC Hgb Hct MCV MCH MCHC RDW Plt Count MPV Neut # (Auto) Lymph # (Auto) Cook # (Auto) Eos # (Auto) Baso # (Auto) Absolute Nucleated RBC Nucleated RBC % Manual Slide Review RBC Morph Micro Appear PT INR Sodium 138 Potassium 3.9 Chloride 106 Carbon Dioxide 21 Anion Gap 11.0 BUN 11 Creatinine 0.7 Estimated GFR (MDRD) 115 Glucose 199 H Lactic Acid 2.5 H Calcium 8.0 L Total Bilirubin 0.6 AST 25 ALT 13 Alkaline Phosphatase 63 Total Protein 5.7 L Albumin 3.3 Globulin 2.4 Albumin/Globulin Ratio 1.4 Nasal Adenovirus (PCR) Nasal B. parapertussis DNA (PCR) Nasal Coronavir 229E PCR Nasal Coronavir HKU1 PCR Nasal Coronavir NL63 PCR Nasal Coronavir OC43 PCR Nasal Enterovir/Rhinovir PCR Nasal Influenza B PCR Nasal Influenza A PCR Nasal Parainfluen 1 PCR Nasal Parainfluen 2 PCR Nasal Parainfluen 3 PCR Nasal Parainfluen 4 PCR Nasal RSV (PCR) Nasal B.pertussis DNA PCR Nasal C.pneumoniae (PCR) Liz Human Metapneumo PCR Nasal M.pneumoniae (PCR) Nasal SARS-CoV-2 (PCR) - Rads (name of study) 1v cxr Radiology: EMP read contemporaneously (RML/RLL PNA) PD MEDICAL DECISION MAKING - ED course ED course: 61-year-old gentleman presents with illness and exam consistent with pneumonia. Fairly remarkable x-ray with large infiltrate. He is lymphopenic, he is on new chemo recently he does not know what though but prior to today's labs his white count was steadily rising with a peak of 248,000 in May per our records. He was administered Rocephin and Zithromax after blood cultures and appeared quite dehydrated and 2 fluid boluses were given. Only mildly elevated lactic acidosis. Call to the hospitalist for admission at 2:05 PM. - Critical Care Time(min): 35 Time Includes: Direct patient care, Review records, Reassess patient, Document care, Coordinate care, Medical consult Data interpretation: Labs, Pulse ox Procedures included in critical care time: Peripheral IV - Sepsis Event Sepsis Onset Date: 01/04/22 Sepsis Onset Time: 13:30 Current Stage of Sepsis: Sepsis Initial Hypotension: Not hypotensive Possible source of Sepsis: Pulmonary Mental/Cognitive Status: Alert/Oriented X3, Normal for patient Reason for not giving 30ml/kg crystalloid fluids: Not in septic shock Capillary refill: Less than 2 seconds Peripheral Pulse Strength: 4+ Bounding Peripheral Pulse Location: Radial Departure - Departure Disposition: 66 [facility] DC/Xfer Clinical Impression: CLL (chronic lymphocytic leukemia) Sepsis Qualifiers: Sepsis type: sepsis due to unspecified organism Sepsis acute organ dysfunction status: without acute organ dysfunction Qualified Code(s): A41.9 - Sepsis, unspecified organism Pneumonia Qualifiers: Pneumonia type: due to unspecified organism Laterality: right Lung location: unspecified part of lung Qualified Code(s): J18.9 - Pneumonia, unspecified organism Condition: Serious Discharge Date/Time: 01/04/22 15:59
--- OUTSIDE RECORDS SUMMARY | 2022-01-04 13:08 | EXTERNAL MEDICAL SUMMARY RPT | Continuity of Care Document ---
:1960 Author Organization [facility] Address [address] [place] [address] Phone Allergies No information. Encounters No information. Medications No information. Problems date description facility 20211027 medical screening [facility] 20211026 Anemia, unspecified [facility] 20211022 Weakness [facility] 20211022 Unsteadiness on feet [facility] 20211022 Opioid use, unspecified, uncomplicated [facility] 20211022 Chronic lymphocytic leukemia of B-cell [facility] type not having achieved remission Results No information.
[2022-01-04 13:24] LABS: BASOPHILS % (AUTO) 0.5 %; EOSINOPHILS % (AUTO) 1.4 %; HCT - HEMATOCRIT 32.7 % (42.0-52.0); HGB - HEMOGLOBIN 10.9 g/dL (14.0-18.0); LYMPHOCYTES # (AUTO) 0.2 10^3/uL (1.5-3.5); LYMPHOCYTES % (AUTO) 6.8 %; MEAN CORPUSCULAR HEMOGLOBIN 29.4 pg (27.0-31.0); MEAN CORPUSCULAR HGB CONC 33.3 g/dL (32.0-36.0); MEAN CORPUSCULAR VOLUME 88.1 fL (80.0-94.0); MONOCYTES # (AUTO) 0.4 10^3/uL (0.0-1.0); MONOCYTES % (AUTO) 16.2 %; NEUTROPHILS # (AUTO) 1.6 10^3/uL (1.5-6.6); NEUTROPHILS % (AUTO) 70.6 %; PLT - PLATELET COUNT 405 10^3/uL (130-450); RED BLOOD COUNT 3.71 10^6/uL (4.70-6.10); WHITE BLOOD COUNT 2.2 x10^3/uL (4.8-10.8)
[2022-01-04 13:26] LABS: LACTIC ACID, VENOUS 2.5 mmol/L (0.5-2.2)
[2022-01-04 13:26] LABS: PT - PROTHROMBIN TIME 11.4 secs (9.9-12.6)
[2022-01-04 13:28] LABS: ALBUMIN 3.3 g/dL (3.2-5.5); ALBUMIN/GLOBULIN RATIO 1.4 (1.0-2.2); BILIRUBIN,TOTAL 0.6 mg/dL (0.2-1.0); CREATININE 0.7 mg/dL (0.6-1.2); POTASSIUM 3.9 mmol/L (3.5-5.0); TOTAL PROTEIN 5.7 g/dL (6.7-8.2)
[2022-01-04 13:30] LABS: SLIDE REVIEW? Indicated
[2022-01-04] MEDS ORDERED: cefTRIAXone 1 GM in SODIUM CHLORIDE 0.9% MINIBAG 100 ML IV STA (13:33)
[2022-01-04] MEDS ORDERED: AZITHROMYCIN INJ 500 MG in SODIUM CHLORIDE 0.9% 250 ML IV STA (13:33)
[2022-01-04 13:49] LABS: RBC MORPHOLOGY (MULTIPLE) 2+ ANISOCYTOSIS (NORMAL)
--- NOTE | 2022-01-04 13:54 | XRAY Report ---
PROCEDURE: Chest 1 View X-Ray INDICATIONS: cough TECHNIQUE: One view of the chest was acquired. COMPARISON: 05/25/2021 FINDINGS: Surgical changes and devices: Right-sided Port-A-Cath tip in the SVC. No pneumothorax. Lungs and pleura: Dense right pulmonary infiltrate with volume loss and shift to the right accentuate d by rotation. Left lung and pleural space clear. Mediastinum: Mediastinal contours appear normal. Heart size is normal. Bones and chest wall: No suspicious bony lesions. Overlying soft tissues appear unremarkable. Lowe r cervical spine instrumentation noted. IMPRESSION: 1. Dense right pulmonary infiltrate with volume loss and possible mediastinal shift to the right. Lakshmi luation is limited by rotation Reviewed by: Rolando Carcamo MD on 01/04/2022 12:53 PM AKSAIDA Approved by: Rolando Carcamo MD on 01/04/2022 12:53 PM AKDT Station ID: [id number]
[2022-01-04] MEDS ORDERED: MORPHINE 2 MG/ML CARPUJECT IVP STA (14:03)
[2022-01-04 14:30] LABS: B. PARAPERTUSSIS- RESP PCR PAN NOT DETECTED; B. PERTUSSIS- RESP PCR PANEL NOT DETECTED; C. PNEUMONIAE- RESP PCR PANEL NOT DETECTED; CORONAVIRUS 229E-RESP PCR NOT DETECTED; CORONAVIRUS HKU1-RESP PCR NOT DETECTED; CORONAVIRUS NL63-RESP PCR NOT DETECTED; CORONAVIRUS OC43-RESP PCR NOT DETECTED; HUMAN METAPNEUMOVIRUS NOT DETECTED; INFLUENZA A- RESP PCR PANEL NOT DETECTED; INFLUENZA B - RESP PCR PANEL NOT DETECTED; M. PNEUMONIAE- RESP PCR PANEL NOT DETECTED; PARAINFLUENZA VIRUS 1 NOT DETECTED; PARAINFLUENZA VIRUS 2 NOT DETECTED; PARAINFLUENZA VIRUS 3 NOT DETECTED; PARAINFLUENZA VIRUS 4 NOT DETECTED; RHINOVIRUS/ENTEROVIRUS NOT DETECTED; RSV- RESP PCR PANEL NOT DETECTED; SARS-CoV-2 -RESP PCR PANEL NOT DETECTED
[2022-01-04] MEDS ORDERED: SODIUM CHLORIDE FLUSH 0.9% 10 ML SYRINGE IVP PRN (15:13)
[2022-01-04] MEDS ORDERED: SODIUM CHLORIDE 0.9% 1,000 ML IV SCH (16:00)
--- NOTE | 2022-01-04 16:22 | HISTORY & PHYSICAL EXAMINATION ---
Chief Complaint - Chief Complaint Chief Complaint: Cough, fever, aches and shortness of breath History of Present Illness - Admitted From Admitted From:: ED - History Obtained From History obtained from: ED provider and the patient - History of Present Illness HPI Comment/Other: This is a 61-year-old white male with a history of traumatic brain brain injury and developmental delay, hypertension, diabetes mellitus type 2 on oral agent, chronic opiate dependence, CLL who is on therapy by oncology. The patient developed a fever yesterday then weakness, shortness of breath and a cough. He presented to the ED because of a cough and shortness of breath and had a temperature documented at 40.1 C. He was tachycardic at 114 in sinus tachycardia and blood pressure was elevated. His oxygen saturation was adequate at 92% on room air. His exam was remarkable for right-sided rhonchi and chest x-ray showed Right mid and lower lobe pneumonia. Notable labs were lactic acid of 2.5, white blood count of only 2,200 (compared to his last WBC here of 248,000). Glucose was elevated at 199. COVID test negative. He is being admitted to the Hospitalist team for treatment of sepsis and community-acquired pneumonia in a patient that is leukopenic on chemo for CLL. 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 Father: of old age several years ago Living arrangement: At home Social History Notes: The patient is retired from the [employer] for the past 10 years, lives independently in [place]. Has no children, was never . Denies tobacco, alcohol or illicit drug use. Wishes to be a FULL code. - Substance History Use: Uses substance without health or social issues: NONE - POLST Patient has POLST: No POLST Status: Full Code Meds/Allgy - Home Medications Home Medications: Ambulatory Orders Medication Instructions Recorded Confirmed Cyclobenzaprine [Flexeril] 10 mg PO TID PRN 10/22/16 11/22/20 Tizanidine HCl 8 mg PO DAILY PM 10/22/16 11/22/20 Venlafaxine HCl [Effexor Xr] 150 mg PO DAILY 10/22/16 11/22/20 diazePAM [Diazepam] 10 mg PO TID PRN 05/22/19 11/22/20 Aspirin [Adult Low Dose Aspirin EC] 81 mg PO DAILY 05/23/19 11/22/20 Fluticasone [Flonase] 2 sprays LIZ DAILY PRN 05/23/19 11/22/20 Losartan [Cozaar] 50 mg PO DAILY 11/04/20 11/22/20 Oxycodone HCl [Oxycontin] 60 mg ORAL BID 11/04/20 11/22/20 Lidocaine Patch 5% [Lidoderm Patch] 2 patch TOP DAILY PRN 01/04/22 01/04/22 Magnesium Oxide [Mag Ox] 400 mg PO DAILY 01/04/22 01/04/22 - Allergies Allergies/Adverse Reactions: Allergies Allergy/AdvReac Type Severity Reaction Status Date / Time ibuprofen AdvReac Unknown Verified 01/04/22 12:40 Review of Systems - Constitutional Constitutional: reports: Fatigue, Fever, Chills, Malaise - Respiratory Respiratory: reports: Cough, Sputum production, SOB at rest, SOB with exertion - Gastrointestinal Gastrointestinal: reports: Nausea - Endocrine Endocrine: reports: Other (Patient says "I do not have diabetes". When told his A1c was 11.5 three years ago, he said "Well, I don't have Diabetes now". He reports his last A1c was recent and was 6.7.) - All Other Systems All Other Systems: reports: Reviewed and negative, Other (Limited due to poor historian) Exam - Vital Signs Reviewed Vital Signs: Yes Vital Signs: Vital Signs x48h Temp Pulse Resp BP Pulse Ox 01/04/22 15:22 96 23 130/65 94 01/04/22 14:54 38.7 C H 98 22 158/75 H 94 01/04/22 14:09 39.2 C H 101 H 19 160/92 H 94 01/04/22 12:53 110 H 26 H 174/90 H 01/04/22 12:34 40.1 C H 114 H 18 174/65 H 92 - Physical Exam General Appearance: positive: No acute distress, Alert, Other (Sitting, shifted toward his right, because of chronic low back pain "due to multiple screws and hardware and because his hips are [id number].") Eyes Bilateral: positive: Normal inspection, EOMI ENT: positive: ENT inspection nml, Dry mucous membranes Neck: positive: Nml inspection, No JVD Respiratory: positive: No respiratory distress, Rales (R mid and lower lung carter, posteriorly) Cardiovascular: positive: Regular rate & rhythm, No murmur Abdomen: positive: Non-tender, No distention Skin: positive: Warm, Dry Extremities: positive: Non-tender, No pedal edema, Other (R great toe amputated. Heeled wounds of both knees.) Sepsis Event Note (H) - Evaluation Current Stage of Sepsis: Sepsis Possible source of Sepsis: positive: Pulmonary - Sepsis Criteria Sepsis Criteria: Recorded Temperature greater than 38.3C or Less than 36C, Recorded Heart Rate greater than 90 bpm, WBC count greater than 12,000 or less than 4000, Metabolic: lactate > 2 mmol/L Conclusion/Plan - Problem List (1) Sepsis Conclusion/Plan: He has a fever, low white blood, tachycardia and signs of pneumonia on evaluation. He will be started on aggressive IV fluids, after receiving 2 L of crystalloids in the ED. Lactic acid will be followed q3h until it is normalized. The underlying infection will be treated Qualifiers: Sepsis type: sepsis due to unspecified organism Sepsis acute organ dysfunction status: without acute organ dysfunction Qualified Code(s): A41.9 - Sepsis, unspecified organism (2) CAP (community acquired pneumonia) Conclusion/Plan: Blood cultures were taken in the ED. Respiratory culture will be ordered since he makes sputum. Will begin treatment with empiric IV ceftriaxone and IV Zithromax. Will order Florastor. Will order Mucinex for pulmonary toilet. (3) CLL (chronic lymphocytic leukemia) Conclusion/Plan: The details of what agent is being used for treatment of CLL is not known, the patient does not remember its name. There has been a significant effect in dropping his WBC from 248 down to 2.2, as per labs done here. Will order neutropenic precautions. Follow CBC daily (4) Diabetes mellitus, type 2 Conclusion/Plan: There is a history of chronic non-healing wounds of his lower extremities for which she used to be seen at [facility] [place] [facility] wound clinic. All the wounds appear healed and he has amputation of the R great toe ("due to frostbite" he said). A carb-controlled diet, fingerstick checks, and ss insulin coverage has been ordered, and plan A1c check with morning labs. (The A1c is now a send-out lab and takes 2 days for results). (5) TBI (traumatic brain injury) Conclusion/Plan: As pr Hx. There is also report of developmental delay. Social work consult will be requested for discharge planning. (6) Chronic narcotic dependence Conclusion/Plan: His medications will be quickly reconciled by pharmacy and continued since this would prevent withdrawal. He also takes Benadryl 50 mg at bedtime normally, to sleep. (7) Hypertension Conclusion/Plan: He has missed several meds during his stay in the ED, thus BP is elevated. His blood pressure meds will be reconciled and continued. - Lab Results Lab results reviewed: Yes Fish Bones: 01/04/22 13:10 01/04/22 13:10 - Diagnostic Imaging Results Diagnostic Imaging Results: positive: Final report reviewed - Other Other Results/Comments: Attestation: The patient is expected to be discharged or transferred to another facility within 96 hours: Yes.
[2022-01-04] MEDS ORDERED: MORPHINE SULFATE ER 30 MG TABLET PO SCH (16:25)
[2022-01-04] MEDS: ONDANSETRON 4 MG/2 ML VIAL IVP PRN (17:20)
[2022-01-04] MEDS: SODIUM CHLORIDE FLUSH 0.9% 10 ML SYRINGE IVP SCH (17:21)
[2022-01-04] MEDS: INSULIN ASPART 300 UNIT/3 ML PEN SUBQ SCH ×2 (17:22→21:11)
[2022-01-04] MEDS: SACCHAROMYCES BOULARDII 250 MG CAPSULE PO SCH (17:24)
[2022-01-04] MEDS: SODIUM CHLORIDE 0.9% 1,000 ML IV SCH (17:35)
--- NOTE | 2022-01-04 17:38 | PHARMACY PROGRESS NOTE ---
- Best Possible Medication History Admit Date and Time: 01/04/22 1526 Processed by: Pharmacy Medication History completed: Yes Patient Interview: Completed Secondary Source(s): Written medication list, Insurance records Patient says he has not started irutinib treatment yet As the person ultimately responsible for medication therapy, providers are able to order a medication from an existing home medication list in [facility] via the "Reconcile Routine" prior to Confirmation of that medication by sales support engineer. Such practice is discouraged except when the physician, in their clinical judgment, deems that a medical need exists for a medication without regard to previous use.
[2022-01-04] MEDS ORDERED: FLUTICASONE NASAL SPRAY NAS PRN (17:40)
[2022-01-04] MEDS ORDERED: ACETAMINOPHEN 325 MG TABLET PO PRN (17:43)
[2022-01-04] MEDS ORDERED: ALBUTEROL NEB 2.5 MG/3 ML INH PRN (18:03)
[2022-01-04] MEDS ORDERED: ONDANSETRON ODT 4 MG TABLET TL PRN (18:07)
[2022-01-04] MEDS ORDERED: PROCHLORPERAZINE 5 MG TABLET PO PRN (18:14)
[2022-01-04 19:16] LABS: BILIRUBIN,URINE NEGATIVE (NEGATIVE); GLUCOSE, URINE (UA) NEGATIVE (NEGATIVE); KETONES,URINE (UA) NEGATIVE (NEGATIVE); LEUKOCYTE ESTERASE, URINE NEGATIVE (NEGATIVE); NITRITE,URINE NEGATIVE (NEGATIVE); OCCULT BLOOD,URINE NEGATIVE (NEGATIVE); PH,URINE 5.5 PH (5.0-7.5); PROTEIN,URINE NEGATIVE (NEGATIVE); UROBILINOGEN,URINE 0.2 (NORMAL) E.U./dL (NORMAL)
[2022-01-04 19:17] LABS: CLARITY,URINE CLEAR (CLEAR)
[2022-01-04 19:24] LABS: BACTERIA,URINE None Seen /HPF (None Seen); RBC,URINE None Seen /HPF (0-5); SQUAMOUS EPITHELIAL CELL,UR RARE Squamous (<= Few); WBC,URINE 0-3 /HPF (0-3)
[2022-01-04] MEDS: oxyCODONE 30 MG TABLET PO PRN (19:46)
[2022-01-04] MEDS ORDERED: CARVEDILOL 25 MG PO SCH (21:00)
[2022-01-04] MEDS ORDERED: diphenhydrAMINE 25 MG CAPSULE PO PRN (21:00)
[2022-01-04] MEDS ORDERED: OXYCODONE HCL 60 MG ORAL SCH (21:00)
[2022-01-04] MEDS: carvediloL 12.5 MG TABLET PO SCH (21:09)
[2022-01-04] MEDS: guaiFENesin 600 MG TABLET PO SCH (21:10)
[2022-01-04] MEDS: diazePAM 5 MG TABLET PO PRN (21:10)
[2022-01-04] MEDS: LIDOCAINE PATCH 5% TOP PRN (21:13)
[2022-01-04] MEDS: tiZANidine 4 MG TABLET PO SCH (21:22)
[2022-01-04] MEDS ORDERED: SODIUM CHLORIDE 0.9% 500 ML IV ONE (23:42)
[2022-01-05] MEDS: SODIUM CHLORIDE FLUSH 0.9% 10 ML SYRINGE IVP SCH ×4 (00:13→21:06)
[2022-01-05] MEDS: SODIUM CHLORIDE 0.9% 1,000 ML IV SCH ×3 (01:32→20:34)
[2022-01-05] MEDS: oxyCODONE ER 40 MG TABLET PO SCH ×2 (01:37→11:44)
[2022-01-05] MEDS: oxyCODONE ER 10 MG TABLET PO SCH ×2 (01:37→11:44)
[2022-01-05] MEDS: oxyCODONE 30 MG TABLET PO PRN ×5 (04:17→22:10)
[2022-01-05 07:24] LABS: EOSINOPHILS % (AUTO) 1.5 %; HCT - HEMATOCRIT 24.7 % (42.0-52.0); HGB - HEMOGLOBIN 8.2 g/dL (14.0-18.0); LYMPHOCYTES % (AUTO) 17.7 %; MEAN CORPUSCULAR HEMOGLOBIN 29.7 pg (27.0-31.0); MEAN CORPUSCULAR HGB CONC 33.2 g/dL (32.0-36.0); MEAN CORPUSCULAR VOLUME 89.5 fL (80.0-94.0); MEAN PLATELET VOLUME 11.3 fL (7.4-11.4); MONOCYTES % (AUTO) 15.8 %; NEUTROPHILS % (AUTO) 57.6 %; PLT - PLATELET COUNT 46 10^3/uL (130-450); RED BLOOD COUNT 2.76 10^6/uL (4.70-6.10); RED CELL DISTRIBUTION WIDTH 14.1 % (12.0-15.0)
[2022-01-05 07:28] LABS: CALCIUM 7.5 mg/dL (8.5-10.3); CREATININE 0.8 mg/dL (0.6-1.2); POTASSIUM 3.8 mmol/L (3.5-5.0)
[2022-01-05 07:33] LABS: SLIDE REVIEW? Indicated
[2022-01-05 07:34] LABS: ABNORMAL LYMPHS % (MANUAL) 0 %
[2022-01-05] MEDS: INSULIN ASPART 300 UNIT/3 ML PEN SUBQ SCH ×4 (07:45→21:07)
[2022-01-05 07:51] LABS: BAND NEUTROPHILS % (MANUAL) 18 %; LYMPHOCYTES # (MANUAL) 0.4 10^3/uL (1.5-3.5); LYMPHOCYTES % (MANUAL) 10 %; METAMYELOCYTES % (MANUAL) 2 %; MONOCYTES # (MANUAL) 0.4 10^3/uL (0.0-1.0); MYELOCYTES % (MANUAL) 2 %; NEUTROPHILS # (MANUAL) 1.1 10^3/uL (1.5-6.6); REACTIVE LYMPHS % (MANUAL) 8 %
[2022-01-05 07:52] LABS: DIFFERENTIAL COMMENT MANUAL DIFFERENTIAL; RBC MORPHOLOGY (MULTIPLE) 2+ ANISOCYTOSIS (NORMAL)
[2022-01-05] MEDS: AZITHROMYCIN INJ 500 MG in SODIUM CHLORIDE 0.9% 250 ML IV SCH (08:31)
[2022-01-05] MEDS: FERROUS SULFATE 325 MG TABLET PO SCH (08:35)
[2022-01-05] MEDS: ASCORBIC ACID 500 MG TABLET PO SCH (08:35)
[2022-01-05] MEDS: SACCHAROMYCES BOULARDII 250 MG CAPSULE PO SCH ×2 (08:35→16:54)
[2022-01-05] MEDS: MAGNESIUM OXIDE 400 MG TABLET PO SCH (08:36)
[2022-01-05] MEDS: CYANOCOBALAMIN 500 MCG TABLET PO SCH (08:36)
[2022-01-05] MEDS: CYCLOBENZAPRINE 10 MG TABLET PO SCH (08:36)
[2022-01-05] MEDS: carvediloL 12.5 MG TABLET PO SCH ×2 (08:36→20:32)
[2022-01-05] MEDS: guaiFENesin 600 MG TABLET PO SCH ×2 (08:36→20:32)
[2022-01-05] MEDS: VENLAFAXINE ER 75 MG CAPSULE PO SCH (08:37)
[2022-01-05] MEDS: cefTRIAXone 2 GM in SODIUM CHLORIDE 0.9% MINIBAG 100 ML IV SCH (08:41)
[2022-01-05] MEDS: ONDANSETRON 4 MG/2 ML VIAL IVP PRN (08:51)
[2022-01-05] MEDS ORDERED: LOSARTAN 50 MG TABLET PO SCH (09:00)
[2022-01-05] MEDS ORDERED: ASPIRIN EC 81 MG TABLET PO SCH (09:00)
[2022-01-05] MEDS: diazePAM 5 MG TABLET PO PRN (09:18)
--- NOTE | 2022-01-05 10:46 | PROVIDER PROGRESS NOTE ---
Assessment/Plan - Problem List (1) Sepsis Qualifiers: Sepsis type: sepsis due to unspecified organism Sepsis acute organ dysfunction status: without acute organ dysfunction Qualified Code(s): A41.9 - Sepsis, unspecified organism Assessment/Plan: 01/05 improved. pt has no more fever as far, lactic acid is down to normal arrange, and BP is at normal arrange now. WBC is 2.0, pt had recent chemotherapy for his CLL. continue antibiotics, blood culture is pending. Since pt is improving, we hold antivirus and antifungal now. (2)neutropenic fever 01/05 pt's WBC is 2. pt has hx of CLL and recently on chemotherapy. continue antibiotic, add neurropenic management protocol. (3) CAP (community acquired pneumonia) Conclusion/Plan: improved. pt has no fever as far, no cough. pt's O2 sat is 98% at room air. continue treatment with empiric IV ceftriaxone and IV Zithromax, Florastor, Mucinex for pulmonary toilet. (4) CLL (chronic lymphocytic leukemia) Conclusion/Plan: pt report he feel fatigue. pt was treated by chemotherapy for his CLL./ There has been a significant effect in dropping his WBC from 248 down to 2.2, as per labs done here. Will order neutropenic precautions. Follow CBC daily. pt may continue followup with his oncologist as out-pt. (5) Diabetes mellitus, type 2 Conclusion/Plan: pt is very agitated and refused to admit he has hx of diabetes. A carb-controlled diet, fingerstick checks, and ss insulin coverage has been ordered, and plan A1c check with morning labs. (The A1c is now a send-out lab and takes 2 days for results). (6) TBI (traumatic brain injury) Conclusion/Plan: As pr Hx. There is also report of developmental delay. continue Social work consult will be requested for discharge planning. (7) Chronic narcotic dependence Conclusion/Plan: resume home Oxycodone schedule He also takes Benadryl 50 mg at bedtime normally, to sleep. (8) Hypertension Conclusion/Plan: pt's BP is at lower side, hold his Losartan, continue his home meds Coreg, continue vital monitor. - Current Meds Current Meds: Current Medications Generic Name Dose Route Start Last Admin Trade Name Freq PRN Reason Stop Dose Admin Acetaminophen 650 mg 01/04/22 17:43 01/04/22 22:35 Acetaminophen 325 Mg Tablet PO 650 mg Q4HR PRN Administration Pain or Fever > 38C (100.4F) Ascorbic Acid 1,000 mg 01/05/22 09:00 01/05/22 08:35 Ascorbic Acid 500 Mg Tablet PO 1,000 mg DAILY [facility] Administration Carvedilol 25 mg 01/04/22 21:00 01/05/22 08:36 Carvedilol 12.5 Mg Tablet PO 25 mg BID [facility] Administration Cyanocobalamin 1,000 mcg 01/05/22 09:00 01/05/22 08:36 Cyanocobalamin 500 Mcg Tablet PO 1,000 mcg DAILY [facility] Administration Cyclobenzaprine HCl 10 mg 01/05/22 09:00 01/05/22 08:36 Cyclobenzaprine 10 Mg Tablet PO 10 mg DAILY [facility] Administration Diazepam 10 mg 01/04/22 18:05 01/05/22 09:18 Diazepam 5 Mg Tablet PO 10 mg TID PRN Administration Muscle Spasms Ferrous Sulfate 650 mg 01/05/22 08:00 01/05/22 08:35 Ferrous Sulfate 325 Mg Tablet PO 650 mg DAILYWM [facility] Administration Guaifenesin 600 mg 01/04/22 21:00 01/05/22 08:36 Guaifenesin 600 Mg Tablet PO 600 mg BID [facility] Administration Azithromycin 500 mg/ Sodium 250 mls @ 250 mls/hr 01/05/22 09:00 01/05/22 09:31 Chloride IV 01/06/22 23:00 Infused DAILY [facility] Infusion Ceftriaxone Sodium 2 gm/ 100 mls @ 200 mls/hr 01/05/22 09:00 01/05/22 10:06 Sodium Chloride IV Infused DAILY [facility] Infusion Sodium Chloride 1,000 mls @ 100 mls/hr 01/05/22 08:26 01/05/22 10:07 Normal Saline 0.9% IV 01/06/22 04:25 100 mls/hr .Q10H [facility] Infusion Insulin Aspart 1 - 5 unit 01/04/22 17:00 01/05/22 07:45 Insulin Aspart 300 Unit/3 Ml Pen SUBQ 2 unit 0800,1200,1700,2100 [facility] Administration Protocol Lidocaine 2 patch 01/04/22 17:40 01/04/22 21:13 Lidocaine Patch 5% TOP 2 patch DAILY PRN Administration pain Magnesium Oxide 400 mg 01/05/22 09:00 01/05/22 08:36 Magnesium Oxide 400 Mg Tablet PO 400 mg DAILY [facility] Administration Ondansetron HCl 4 mg 01/04/22 15:13 01/05/22 08:51 Ondansetron 4 Mg/2 Ml Vial IVP 4 mg Q6HR PRN Administration Nausea / Vomiting Oxycodone HCl 40 mg 01/05/22 00:00 01/05/22 01:37 Oxycodone Er 40 Mg Tablet PO Not Given 0000,1200 [facility] Oxycodone HCl 20 mg 01/05/22 00:00 01/05/22 01:37 Oxycodone Er 10 Mg Tablet PO Not Given 0000,1200 [facility] Oxycodone HCl 60 mg 01/05/22 08:33 01/05/22 08:43 Oxycodone 30 Mg Tablet PO 60 mg Q4H PRN Administration PAIN Prochlorperazine Maleate 10 mg 01/04/22 18:14 01/04/22 22:34 Prochlorperazine 5 Mg Tablet PO 10 mg Q6H PRN Administration Nausea / Vomiting Saccharomyces Boulardii 250 mg 01/04/22 17:00 01/05/22 08:35 Saccharomyces Boulardii 250 Mg Capsule PO 250 mg BIDWM [facility] Administration Sodium Chloride 10 ml 01/04/22 15:13 01/05/22 08:51 Sodium Chloride Flush 0.9% 10 Ml Syringe IVP 10 ml PRN PRN Administration NEEDED PER PROVIDER ORDERS Sodium Chloride 10 ml 01/04/22 17:00 01/05/22 08:37 Sodium Chloride Flush 0.9% 10 Ml Syringe IVP Not Given 0100,0900,1700 [facility] Tizanidine HCl 4 mg 01/04/22 21:00 01/04/22 21:22 Tizanidine 4 Mg Tablet PO 4 mg QPM [facility] Administration Venlafaxine HCl 150 mg 01/05/22 09:00 01/05/22 08:37 Venlafaxine Er 75 Mg Capsule PO 150 mg DAILY [facility] Administration - Lab Result Fish Bone Diagrams: 01/05/22 07:00 01/05/22 07:00 - Additional Planning My Orders: My Active Orders 01/05/22 08:26 Sodium Chloride 0.9% [Normal Saline 0.9%] 1,000 ml IV 100 mls/hr 01/05/22 08:33 oxyCODONE [Roxicodone] 60 mg PO Q4H PRN 01/05/22 09:26 Neutropenic Management [RC] QSHIFT 01/05/22 11:00 LACTIC ACID, VENOUS [CHEM] Urgent Subjective - Subjective Patient Reports: Resting Comfortably Objective Vital Signs: Vital Signs - 24 hr 01/04/22 01/04/22 01/04/22 12:34 12:53 14:09 Temperature 40.1 C H 39.2 C H Heart Rate 114 H 110 H 101 H Heart Rate [ Brachial] Respiratory 18 26 H 19 Rate Blood Pressure 174/65 H 174/90 H 160/92 H Blood Pressure [Left Brachial artery] Blood Pressure [Right Brachial artery] O2 Saturation 92 94 01/04/22 01/04/22 01/04/22 14:54 15:22 16:29 Temperature 38.7 C H 37.2 C Heart Rate 98 96 Heart Rate [ 97 Brachial] Respiratory 22 23 24 Rate Blood Pressure 158/75 H 130/65 Blood Pressure 141/75 H [Left Brachial artery] Blood Pressure [Right Brachial artery] O2 Saturation 94 94 97 01/04/22 01/04/22 01/05/22 19:39 23:58 01:15 Temperature 36.6 C 36.5 C Heart Rate Heart Rate [ 77 61 Brachial] Respiratory 16 18 Rate Blood Pressure Blood Pressure [Left Brachial artery] Blood Pressure 119/70 94/53 L 96/50 L [Right Brachial artery] O2 Saturation 97 97 01/05/22 01/05/22 01/05/22 04:17 05:00 07:22 Temperature 36.7 C 37.0 C Heart Rate Heart Rate [ 71 76 Brachial] Respiratory 17 18 Rate Blood Pressure Blood Pressure [Left Brachial artery] Blood Pressure 107/66 105/58 L [Right Brachial artery] O2 Saturation 98 98 01/05/22 08:44 Temperature Heart Rate Heart Rate [ 75 Brachial] Respiratory Rate Blood Pressure Blood Pressure [Left Brachial artery] Blood Pressure 128/60 [Right Brachial artery] O2 Saturation Oxygen O2 Source Room air I&O (Last 24 Hrs): Intake and Output Totals x24h 01/03/22 01/04/22 01/05/22 23:59 23:59 23:59 Intake Total 3915.800 4352.500 Output Total 1200 5 Balance 2715.800 2327.500 General: Alert, No acute distress HEENT: Atraumatic Neck: Supple Lymphatic: no adenopathy Neuro: Alert, Non Focal Cardiovascular: Regular rate, Normal S1, Normal S2 Respiratory: Chest non-tender, No respiratory distress Abdomen: Normal bowel sounds, Soft Extremities: Normal pulses - Results Results: Laboratory Results WBC 2.0 x10^3/uL (4.8-10.8) L* 01/05/22 07:00 RBC 2.76 10^6/uL (4.70-6.10) L 01/05/22 07:00 Hgb 8.2 g/dL (14.0-18.0) L 01/05/22 07:00 Hct 24.7 % (42.0-52.0) L 01/05/22 07:00 MCV 89.5 fL (80.0-94.0) 01/05/22 07:00 MCH 29.7 pg (27.0-31.0) 01/05/22 07:00 MCHC 33.2 g/dL (32.0-36.0) 01/05/22 07:00 RDW 14.1 % (12.0-15.0) 01/05/22 07:00 Plt Count 46 10^3/uL (130-450) L 01/05/22 07:00 MPV 11.3 fL (7.4-11.4) 01/05/22 07:00 Neut # (Auto) Not Reportable 01/05/22 07:00 Lymph # (Auto) Not Reportable 01/05/22 07:00 [place] # (Auto) Not Reportable 01/05/22 07:00 Eos # (Auto) Not Reportable 01/05/22 07:00 Baso # (Auto) Not Reportable 01/05/22 07:00 Absolute Nucleated RBC Not Reportable 01/05/22 07:00 Total Counted 100 01/05/22 07:00 Band Neuts % (Manual) 18 % (0-10) H 01/05/22 07:00 Reactive Lymphs % (Man) 8 % 01/05/22 07:00 Abnorm Lymph % (Manual) 0 % 01/05/22 07:00 Metamyelocytes % 2 % (-0) H 01/05/22 07:00 Myelocytes % 2 % (-0) H 01/05/22 07:00 Nucleated RBC % Not Reportable 01/05/22 07:00 Neutrophils # (Manual) 1.1 10^3/uL (1.5-6.6) L 01/05/22 07:00 Lymphocytes # (Manual) 0.4 10^3/uL (1.5-3.5) L 01/05/22 07:00 Monocytes # (Manual) 0.4 10^3/uL (0.0-1.0) 01/05/22 07:00 Eosinophils # (Manual) 0.0 10^3/uL (0-0.7) 01/05/22 07:00 Basophils # (Manual) 0.0 10^3/uL (0-0.1) 01/05/22 07:00 Differential Comment MANUAL DIFFERENTIAL 01/05/22 07:00 Manual Slide Review Indicated 01/05/22 07:00 RBC Morph Micro Appear 2+ ANISOCYTOSIS (NORMAL) 01/05/22 07:00 PT 11.4 secs (9.9-12.6) 01/04/22 13:05 INR 1.0 (0.8-1.2) 01/04/22 13:05 Sodium 136 mmol/L (135-145) 01/05/22 07:00 Potassium 3.8 mmol/L (3.5-5.0) 01/05/22 07:00 Chloride 107 mmol/L (101-111) 01/05/22 07:00 Carbon Dioxide 23 mmol/L (21-32) 01/05/22 07:00 Anion Gap 6.0 (6-13) 01/05/22 07:00 BUN 15 mg/dL (6-20) 01/05/22 07:00 Creatinine 0.8 mg/dL (0.6-1.2) 01/05/22 07:00 Estimated GFR (MDRD) 98 (>89) 01/05/22 07:00 Glucose 192 mg/dL (70-100) H 01/05/22 07:00 Lactic Acid 2.1 mmol/L (0.5-2.2) 01/05/22 07:25 Calcium 7.5 mg/dL (8.5-10.3) L 01/05/22 07:00 Total Bilirubin 0.6 mg/dL (0.2-1.0) 01/04/22 13:10 AST 25 IU/L (10-42) 01/04/22 13:10 ALT 13 IU/L (10-60) 01/04/22 13:10 Alkaline Phosphatase 63 IU/L (42-121) 01/04/22 13:10 Total Protein 5.7 g/dL (6.7-8.2) L 01/04/22 13:10 Albumin 3.3 g/dL (3.2-5.5) 01/04/22 13:10 Globulin 2.4 g/dL (2.1-4.2) 01/04/22 13:10 Albumin/Globulin Ratio 1.4 (1.0-2.2) 01/04/22 13:10 Urine Color DARK YELLOW 01/04/22 18:45 Urine Clarity CLEAR (CLEAR) 01/04/22 18:45 Urine pH 5.5 PH (5.0-7.5) 01/04/22 18:45 Ur Specific [place] 1.020 (1.002-1.030) 01/04/22 18:45 Urine Protein NEGATIVE mg/dL (NEGATIVE) 01/04/22 18:45 Urine Glucose (UA) NEGATIVE mg/dL (NEGATIVE) 01/04/22 18:45 Urine Ketones NEGATIVE mg/dL (NEGATIVE) 01/04/22 18:45 Urine Occult Blood NEGATIVE (NEGATIVE) 01/04/22 18:45 Urine Nitrite NEGATIVE (NEGATIVE) 01/04/22 18:45 Urine Bilirubin NEGATIVE (NEGATIVE) 01/04/22 18:45 Urine Urobilinogen 0.2 (NORMAL) E.U./dL (NORMAL) 01/04/22 18:45 Ur Leukocyte Esterase NEGATIVE (NEGATIVE) 01/04/22 18:45 Urine RBC None Seen /HPF (0-5) 01/04/22 18:45 Urine WBC 0-3 /HPF (0-3) 01/04/22 18:45 Ur Squamous Epith Cells RARE Squamous (<= Few) 01/04/22 18:45 Urine Bacteria None Seen /HPF (None Seen) 01/04/22 18:45 Urine Culture Comments NOT INDICATED 01/04/22 18:45 Nasal Adenovirus (PCR) NOT DETECTED 01/04/22 12:45 Nasal B. parapertussis DNA (PCR) NOT DETECTED 01/04/22 12:45 Nasal Coronavir 229E PCR NOT DETECTED 01/04/22 12:45 Nasal Coronavir HKU1 PCR NOT DETECTED 01/04/22 12:45 Nasal Coronavir NL63 PCR NOT DETECTED 01/04/22 12:45 Nasal Coronavir OC43 PCR NOT DETECTED 01/04/22 12:45 Nasal Enterovir/Rhinovir PCR NOT DETECTED 01/04/22 12:45 Nasal Influenza B PCR NOT DETECTED 01/04/22 12:45 Nasal Influenza A PCR NOT DETECTED 01/04/22 12:45 Nasal Parainfluen 1 PCR NOT DETECTED 01/04/22 12:45 Nasal Parainfluen 2 PCR NOT DETECTED 01/04/22 12:45 Nasal Parainfluen 3 PCR NOT DETECTED 01/04/22 12:45 Nasal Parainfluen 4 PCR NOT DETECTED 01/04/22 12:45 Nasal RSV (PCR) NOT DETECTED 01/04/22 12:45 Nasal B.pertussis DNA PCR NOT DETECTED 01/04/22 12:45 Nasal C.pneumoniae (PCR) NOT DETECTED 01/04/22 12:45 Liz Human Metapneumo PCR NOT DETECTED 01/04/22 12:45 Nasal M.pneumoniae (PCR) NOT DETECTED 01/04/22 12:45 Nasal SARS-CoV-2 (PCR) NOT DETECTED 01/04/22 12:45 - Procedures Procedures: Procedures EXTRACTION OF R FOOT SUBCU/FASCIA, OPEN APPROACH (05/22/19) EXTRACTION OF RIGHT FOOT SKIN, EXTERNAL APPROACH (05/22/19) Sepsis Event Note (H) - Evaluation Current Stage of Sepsis: Sepsis Possible source of Sepsis: positive: Pulmonary - Sepsis Criteria Sepsis Criteria: Recorded Temperature greater than 38.3C or Less than 36C, Recorded Heart Rate greater than 90 bpm, WBC count greater than 12,000 or less than 4000, Metabolic: lactate > 2 mmol/L ABX Reporting Has patient been on IV antibiotics over the past 48 hours?: Yes Current Medications - Current Medications Current Medications: Active Medications Acetaminophen (Acetaminophen 325 Mg Tablet) 650 mg PO Q4HR PRN PRN Reason: Pain or Fever > 38C (100.4F) Last Admin: 01/04/22 22:35 Dose: 650 mg Albuterol (Albuterol Neb 2.5 Mg/3 Ml) 2.5 mg INH BID PRN PRN Reason: Shortness of Air/Wheezing Ascorbic Acid (Ascorbic Acid 500 Mg Tablet) 1,000 mg PO DAILY [facility] Last Admin: 01/05/22 08:35 Dose: 1,000 mg Carvedilol (Carvedilol 12.5 Mg Tablet) 25 mg PO BID [facility] Last Admin: 01/05/22 08:36 Dose: 25 mg Cyanocobalamin (Cyanocobalamin 500 Mcg Tablet) 1,000 mcg PO DAILY [facility] Last Admin: 01/05/22 08:36 Dose: 1,000 mcg Cyclobenzaprine HCl (Cyclobenzaprine 10 Mg Tablet) 10 mg PO DAILY [facility] Last Admin: 01/05/22 08:36 Dose: 10 mg Diazepam (Diazepam 5 Mg Tablet) 10 mg PO TID PRN PRN Reason: Muscle Spasms Last Admin: 01/05/22 09:18 Dose: 10 mg Diphenhydramine HCl (Diphenhydramine 25 Mg Capsule) 50 mg PO QPM PRN PRN Reason: Insomnia Ferrous Sulfate (Ferrous Sulfate 325 Mg Tablet) 650 mg PO DAILYWM [facility] Last Admin: 01/05/22 08:35 Dose: 650 mg Fluticasone Propionate (Fluticasone Nasal [place]) 2 sprays LIZ DAILY PRN PRN Reason: Allergy Symptoms Guaifenesin (Guaifenesin 600 Mg Tablet) 600 mg PO BID [facility] Last Admin: 01/05/22 08:36 Dose: 600 mg Azithromycin 500 mg/ Sodium (Chloride) 250 mls @ 250 mls/hr IV DAILY [facility] Stop: 01/06/22 23:00 Last Infusion: 01/05/22 09:31 Dose: Infused Ceftriaxone Sodium 2 gm/ (Sodium Chloride) 100 mls @ 200 mls/hr IV DAILY [facility] Last Infusion: 01/05/22 10:06 Dose: Infused Sodium Chloride (Normal Saline 0.9%) 1,000 mls @ 100 mls/hr IV .Q10H [facility] Stop: 01/06/22 04:25 Last Infusion: 01/05/22 10:07 Dose: 100 mls/hr Insulin Aspart (Insulin Aspart 300 Unit/3 Ml Pen) 1 - 5 unit SUBQ 0800,1200,1700,2100 [facility]; Protocol Last Admin: 01/05/22 07:45 Dose: 2 unit Lidocaine (Lidocaine Patch 5%) 2 patch TOP DAILY PRN PRN Reason: pain Last Admin: 01/04/22 21:13 Dose: 2 patch Magnesium Oxide (Magnesium Oxide 400 Mg Tablet) 400 mg PO DAILY [facility] Last Admin: 01/05/22 08:36 Dose: 400 mg Ondansetron HCl (Ondansetron 4 Mg/2 Ml Vial) 4 mg IVP Q6HR PRN PRN Reason: Nausea / Vomiting Last Admin: 01/05/22 08:51 Dose: 4 mg Ondansetron HCl (Ondansetron Odt 4 Mg Tablet) 8 mg TL BID PRN PRN Reason: Nausea / Vomiting Oxycodone HCl (Oxycodone Er 40 Mg Tablet) 40 mg PO 0000,1200 [facility] Last Admin: 01/05/22 01:37 Dose: Not Given Oxycodone HCl (Oxycodone Er 10 Mg Tablet) 20 mg PO 0000,1200 [facility] Last Admin: 01/05/22 01:37 Dose: Not Given Oxycodone HCl (Oxycodone 30 Mg Tablet) 60 mg PO Q4H PRN PRN Reason: PAIN Last Admin: 01/05/22 08:43 Dose: 60 mg Prochlorperazine Maleate (Prochlorperazine 5 Mg Tablet) 10 mg PO Q6H PRN PRN Reason: Nausea / Vomiting Last Admin: 01/04/22 22:34 Dose: 10 mg Saccharomyces Boulardii (Saccharomyces Boulardii 250 Mg Capsule) 250 mg PO BIDWM [facility] Last Admin: 01/05/22 08:35 Dose: 250 mg Sodium Chloride (Sodium Chloride Flush 0.9% 10 Ml Syringe) 10 ml IVP PRN PRN PRN Reason: NEEDED PER PROVIDER ORDERS Last Admin: 01/05/22 08:51 Dose: 10 ml Sodium Chloride (Sodium Chloride Flush 0.9% 10 Ml Syringe) 10 ml IVP 0100,0900,1700 [facility] Last Admin: 01/05/22 08:37 Dose: Not Given Tizanidine HCl (Tizanidine 4 Mg Tablet) 4 mg PO QPM [facility] Last Admin: 01/04/22 21:22 Dose: 4 mg Venlafaxine HCl (Venlafaxine Er 75 Mg Capsule) 150 mg PO DAILY [facility] Last Admin: 01/05/22 08:37 Dose: 150 mg Cyclobenzaprine [Flexeril] 10 mg PO DAILY 10/22/16 Tizanidine HCl 4 mg PO QPM 10/22/16 Venlafaxine HCl [Effexor Xr] 300 mg PO DAILY 10/22/16 diazePAM [Diazepam] 10 mg PO TID PRN 05/22/19 Aspirin [Adult Low Dose Aspirin EC] 81 mg PO DAILY 05/23/19 Fluticasone [Flonase] 2 sprays LIZ DAILY PRN 05/23/19 Losartan [Cozaar] 50 mg PO DAILY 11/04/20 Oxycodone HCl [Oxycontin] 60 mg ORAL BID 11/04/20 Albuterol Sulfate [Proair Hfa Inhaler] 1 puffs INH BID PRN 01/04/22 Ascorbic Acid [Vitamin C] 1,000 mg PO DAILY 01/04/22 Carvedilol [Coreg] 25 mg PO BID 01/04/22 Cyanocobalamin (Vitamin B-12) [Vitamin B-12] 1,000 mcg PO DAILY 01/04/22 Ferrous Sulfate 650 mg PO DAILY 01/04/22 Lidocaine Patch 5% [Lidoderm Patch] 2 patch TOP DAILY PRN 01/04/22 Magnesium Oxide [Mag Ox] 400 mg PO DAILY 01/04/22 Oxycodone HCl 60 mg PO Q4H PRN 01/04/22 Prochlorperazine Maleate 10 mg PO Q6H PRN 01/04/22 ondansetron HCL [Ondansetron HCl] 8 mg PO BID PRN 01/04/22
[2022-01-05 12:46] LABS: ESTIMATED AVERAGE GLUCOSE 123 mg/dL (70-100); HEMOGLOBIN A1c% 5.9 % (4.27-6.07)
[2022-01-05] MEDS: tiZANidine 4 MG TABLET PO SCH (20:32)
[2022-01-05] MEDS ORDERED: oxyCODONE 30 MG TABLET PO SCH (21:00)
[2022-01-06] MEDS: diazePAM 5 MG TABLET PO PRN (00:35)
[2022-01-06] MEDS: oxyCODONE ER 40 MG TABLET PO SCH ×2 (00:35→11:59)
[2022-01-06] MEDS: oxyCODONE ER 10 MG TABLET PO SCH ×2 (00:36→11:58)
[2022-01-06] MEDS: LIDOCAINE PATCH 5% TOP PRN (00:36)
[2022-01-06] MEDS: oxyCODONE 30 MG TABLET PO PRN ×2 (03:36→07:57)
[2022-01-06 05:38] LABS: BASOPHILS % (AUTO) 0.4 %; EOSINOPHILS % (AUTO) 3.3 %; HCT - HEMATOCRIT 24.4 % (42.0-52.0); HGB - HEMOGLOBIN 7.9 g/dL (14.0-18.0); LYMPHOCYTES % (AUTO) 17.4 %; MEAN CORPUSCULAR HEMOGLOBIN 29.5 pg (27.0-31.0); MEAN CORPUSCULAR HGB CONC 32.4 g/dL (32.0-36.0); MEAN PLATELET VOLUME 11.5 fL (7.4-11.4); MONOCYTES % (AUTO) 17.8 %; NEUTROPHILS % (AUTO) 52.4 %; PLT - PLATELET COUNT 59 10^3/uL (130-450); RED BLOOD COUNT 2.68 10^6/uL (4.70-6.10); RED CELL DISTRIBUTION WIDTH 14.1 % (12.0-15.0); WHITE BLOOD COUNT 2.4 x10^3/uL (4.8-10.8)
[2022-01-06 05:43] LABS: CALCIUM 7.9 mg/dL (8.5-10.3); CREATININE 0.9 mg/dL (0.6-1.2); POTASSIUM 4.2 mmol/L (3.5-5.0)
[2022-01-06 05:44] LABS: ABNORMAL LYMPHS % (MANUAL) 0 %
[2022-01-06 05:59] LABS: BAND NEUTROPHILS % (MANUAL) 9 %; BASOPHILS % (MANUAL) 1 %; LYMPHOCYTES # (MANUAL) 0.4 10^3/uL (1.5-3.5); LYMPHOCYTES % (MANUAL) 18 %; METAMYELOCYTES % (MANUAL) 1 %; MONOCYTES # (MANUAL) 0.4 10^3/uL (0.0-1.0); MYELOCYTES % (MANUAL) 1 %; NEUTROPHILS # (MANUAL) 1.5 10^3/uL (1.5-6.6); PLATELET ESTIMATE, MANUAL DECREASED (<130,000) (NORMAL); PLATELET MORPHOLOGY NORMAL APPEARANCE (NORMAL); RBC MORPHOLOGY (MULTIPLE) 1+ ANISOCYTOSIS (NORMAL)
[2022-01-06 06:00] LABS: DIFFERENTIAL COMMENT MANUAL DIFFERENTIAL; WBC MORPHOLOGY (MULTIPLE) NORMAL APPEARANCE (NORMAL)
[2022-01-06] MEDS: INSULIN ASPART 300 UNIT/3 ML PEN SUBQ SCH (07:53)
[2022-01-06] MEDS: guaiFENesin 600 MG TABLET PO SCH (07:54)
[2022-01-06] MEDS: SACCHAROMYCES BOULARDII 250 MG CAPSULE PO SCH (07:54)
[2022-01-06] MEDS: MAGNESIUM OXIDE 400 MG TABLET PO SCH (07:54)
[2022-01-06] MEDS: VENLAFAXINE ER 75 MG CAPSULE PO SCH (07:54)
[2022-01-06] MEDS: CYANOCOBALAMIN 500 MCG TABLET PO SCH (07:54)
[2022-01-06] MEDS: FERROUS SULFATE 325 MG TABLET PO SCH (07:55)
[2022-01-06] MEDS: ASCORBIC ACID 500 MG TABLET PO SCH (07:55)
[2022-01-06] MEDS: CYCLOBENZAPRINE 10 MG TABLET PO SCH (07:55)
[2022-01-06] MEDS: carvediloL 12.5 MG TABLET PO SCH (07:56)
[2022-01-06] MEDS: AZITHROMYCIN INJ 500 MG in SODIUM CHLORIDE 0.9% 250 ML IV SCH (08:09)
[2022-01-06] MEDS: cefTRIAXone 2 GM in SODIUM CHLORIDE 0.9% MINIBAG 100 ML IV SCH (09:38)
[2022-01-06] MEDS: SODIUM CHLORIDE FLUSH 0.9% 10 ML SYRINGE IVP SCH (11:12)
[2022-01-06 12:16] VITALS: BP 137/75
--- NOTE | 2022-01-06 12:58 | Discharge Plan ---
Discharge Plan Problem Reviewed?: Yes Disposition: Home, Self Care Condition: Stable Prescriptions: cefUROXime axetiL [Ceftin] 500 mg PO Q12H 10 Days #40 tablet Saccharomyces Boulardii [Florastor] 250 mg PO BIDWM #20 cap Diet: Regular Activity Restrictions: Activity as Tolerated Shower Restrictions: No (fall precaution) Instruction Topics: Neutropenia, Cefuroxime tablets Health Concerns: neutropenia fever Plan of Treatment: After you are treated at hospital, you have no more fever and your WBC is slight elevated and improved. Blood culture is negative for bacteremia. You are prescribed antibiotics to finish the treatment course and prevention of your neutropenia fever. Care Goals: Stabilization and improvement of your medical conditions Assessment: Discussed the care plan with you, answered your questions, you understood. Additional Instructions or Follow Up instructions: You may follow-up with your PCP in 1 week, follow-up with your oncologist as you are scheduled. Should your symptoms return or worsen, you may present to the ER or call 911 for help No Smoking: If you smoke, Please STOP! Call for help. Follow-up with: Choco Ramsey MD [Primary Care Provider] -
--- NOTE | 2022-01-06 13:07 | DISCHARGE SUMMARY ---
Discharge Summary Admit Date: 01/04/22 Discharge Date: 01/06/22 Discharging Provider: Dell Bolanos Primary Care Provider: Choco Francois Condition at Discharge: Stable Discharge Disposition: 01 Home, Self Care Discharge Facility Name: home - DIAGNOSES Discharge Diagnoses with Status of Each Condition: (1) Sepsis resolved. pt has no more fever, WBC is improved and slight elevated, preliminary blood culture is negative for bacteremia. Patient is hemodynamic stable. (2)neutropenic fever resolved. pt has no more fever. WBC is slightly improved. pt is prescribed antibiotics to finish the treatment course and prevention of neutropenic fever. pt has hx of CLL and under his oncologist care for chemotherapy. (3) CAP (community acquired pneumonia) pt has no more cough, and has no respiratory distress, has no more fever. pt is prescribed antibiotics to finish the treatment course. (4) CLL (chronic lymphocytic leukemia) pt is under his oncologist care (5) TBI (traumatic brain injury) stable, as ppt's Hx. (6) Chronic narcotic dependence resume home meds (7) Hypertension stable, resume his home meds (8)pancytopenia as pt's hx, pt is under his oncologist's care for his CLL. pt may followup with his PCP and oncologist continue monitor. - HPI History of Present Illness: refer from Dr. Sharla Cornell's HPI for pt on 01/04/22 This is a 61-year-old white male with a history of traumatic brain brain injury and developmental delay, hypertension, diabetes mellitus type 2 on oral agent, chronic opiate dependence, CLL who is on therapy by oncology. The patient developed a fever yesterday then weakness, shortness of breath and a cough. He presented to the ED because of a cough and shortness of breath and had a temperature documented at 40.1 C. He was tachycardic at 114 in sinus tachycardia and blood pressure was elevated. His oxygen saturation was adequate at 92% on room air. His exam was remarkable for right-sided rhonchi and chest x-ray showed Right mid and lower lobe pneumonia. Notable labs were lactic acid of 2.5, white blood count of only 2,200 (compared to his last WBC here of 248,000). Glucose was elevated at 199. COVID test negative. He is being admitted to the Hospitalist team for treatment of sepsis and community-acquired pneumonia in a patient that is leukopenic on chemo for CLL. - ALLERGIES Allergies/Adverse Reactions: Allergies Allergy/AdvReac Type Severity Reaction Status Date / Time apple AdvReac Nausea Verified 01/04/22 17:30 chocolate flavor AdvReac Nausea Verified 01/04/22 17:30 crab AdvReac Nausea Verified 01/05/22 08:29 ibuprofen AdvReac Unknown Verified 01/04/22 12:40 rice AdvReac Nausea Verified 01/04/22 17:30 scallops AdvReac Nausea Verified 01/05/22 08:29 shellfish derived AdvReac Nausea Verified 01/05/22 08:29 - MEDICATIONS Home Medications: Ambulatory Orders Medication Instructions Recorded Confirmed Cyclobenzaprine [Flexeril] 10 mg PO DAILY 10/22/16 01/04/22 Tizanidine HCl 4 mg PO QPM 10/22/16 01/04/22 Venlafaxine HCl [Effexor Xr] 300 mg PO DAILY 10/22/16 01/04/22 diazePAM [Diazepam] 10 mg PO TID PRN 05/22/19 01/04/22 Aspirin [Adult Low Dose Aspirin EC] 81 mg PO DAILY 05/23/19 01/04/22 Fluticasone [Flonase] 2 sprays LIZ DAILY PRN 05/23/19 01/04/22 Losartan [Cozaar] 50 mg PO DAILY 11/04/20 01/04/22 Oxycodone HCl [Oxycontin] 60 mg ORAL BID 11/04/20 01/04/22 Albuterol Sulfate [Proair Hfa 1 puffs INH BID PRN 01/04/22 01/04/22 Inhaler] Ascorbic Acid [Vitamin C] 1,000 mg PO DAILY 01/04/22 01/04/22 Carvedilol [Coreg] 25 mg PO BID 01/04/22 01/04/22 Cyanocobalamin (Vitamin B-12) 1,000 mcg PO DAILY 01/04/22 01/04/22 [Vitamin B-12] Ferrous Sulfate 650 mg PO DAILY 01/04/22 01/04/22 Lidocaine Patch 5% [Lidoderm Patch] 2 patch TOP DAILY PRN 01/04/22 01/04/22 Magnesium Oxide [Mag Ox] 400 mg PO DAILY 01/04/22 01/04/22 Oxycodone HCl 60 mg PO Q4H PRN 01/04/22 01/04/22 Prochlorperazine Maleate 10 mg PO Q6H PRN 01/04/22 01/04/22 ondansetron HCL [Ondansetron HCl] 8 mg PO BID PRN 01/04/22 01/04/22 Saccharomyces Boulardii [Florastor] 250 mg PO BIDWM #20 cap 01/06/22 cefUROXime axetiL [Ceftin] 500 mg PO Q12H 10 Days #40 tablet 01/06/22 - PHYSICAL EXAM AT DISCHARGE General Appearance: positive: No acute distress, Alert. negative: Lethargic Eyes Bilateral: positive: Normal inspection, No lid inflammation ENT: positive: ENT inspection nml, No signs of dehydration. negative: Purulent nasal drainage Neck: positive: Nml inspection, Trachea midline. negative: Tracheal deviation Respiratory: positive: Chest non-tender, No respiratory distress. negative: Wheezes Cardiovascular: positive: Regular rate & rhythm. negative: Tachycardia, Bradycardia, Systolic murmur Peripheral Pulses: positive: 2+ Abdomen: positive: Non-tender, Nml bowel sounds, No distention. negative: Tenderness Back: positive: Nml inspection Skin: positive: Color nml, Warm, Dry Extremities: positive: Non-tender, Full ROM, Nml appearance Neurologic/Psychiatric: positive: Oriented x3, Motor nml, Sensation nml. negative: Weakness, Sensory loss, Facial droop, Slurred/abnml speech, Depressed mood/affect - LABS Result Diagrams: 01/06/22 05:23 01/06/22 05:23 - SEPSIS Current Stage of Sepsis: Sepsis Possible source of Sepsis: Pulmonary Sepsis Criteria: Recorded Temperature greater than 38.3C or Less than 36C, Recorded Heart Rate greater than 90 bpm, WBC count greater than 12,000 or less than 4000, Metabolic: lactate > 2 mmol/L - FOLLOW UP Follow Up: After you are treated at hospital, you have no more fever and your WBC is slight elevated and improved. Blood culture is negative for bacteremia. You are prescribed antibiotics to finish the treatment course and prevention of your neutropenia fever. You may follow-up with your PCP in 1 week, follow-up with your oncologist as out-pt. Should your symptoms return or worsen, you may present to the ER or call 911 for help - TIME SPENT Time Spent in Discharge (Minutes): 30
== END 2022-01-06 14:05 | disposition home or self-care (01) | DRG 871 ==
LOC: EDUNIT# → ED 12:26 → MS2 15:26
PROVIDERS: ADMIT Internal Medicine; ATTEND Nurse Practitioner Gerontology
DX: A41.9 Sepsis, unspecified organism (principal); J18.9 Pneumonia, unspecified organism; C91.10 Chronic lymphocytic leukemia of B-cell type not having achieved remission; D61.818 Other pancytopenia; F11.20 Opioid dependence, uncomplicated; D70.9 Neutropenia, unspecified; I10 Essential (primary) hypertension; E11.42 Type 2 diabetes mellitus with diabetic polyneuropathy; E11.65 Type 2 diabetes mellitus with hyperglycemia; K21.9 Gastro-esophageal reflux disease without esophagitis; J32.9 Chronic sinusitis, unspecified; F32.A Depression, unspecified; F41.9 Anxiety disorder, unspecified; F90.9 Attention-deficit hyperactivity disorder, unspecified type; M19.90 Unspecified osteoarthritis, unspecified site; N40.1 Benign prostatic hyperplasia with lower urinary tract symptoms; R35.0 Frequency of micturition; R35.1 Nocturia; R50.81 Fever presenting with conditions classified elsewhere; R62.50 Unspecified lack of expected normal physiological development in childhood; Z20.822 Contact with and (suspected) exposure to COVID-19; Z79.82 Long term (current) use of aspirin; Z79.899 Other long term (current) drug therapy; Z82.49 Family history of ischemic heart disease and other diseases of the circulatory system; Z83.3 Family history of diabetes mellitus; Z87.820 Personal history of traumatic brain injury; Z88.6 Allergy status to analgesic agent; Z89.411 Acquired absence of right great toe; Z91.013 Allergy to seafood; Z91.018 Allergy to other foods; Z92.21 Personal history of antineoplastic chemotherapy
CPT/HCPCS: 36415; 71045; 80048; 80053; 81001; 83036; 83605; 85025; 85610; 87040; 87633; 93005; 96365; 96375; 99285; 99291; A9270; J1170; 87086

== ENCOUNTER 2022-09-24 03:03 | Outpatient (CLI) | payer OTHER, MEDICAID | END 2022-09-24 23:59 | disposition critical access hospital (66) | LOC: EMS 03:03 | DX: R07.81 Pleurodynia (principal); R11.2 Nausea with vomiting, unspecified | CPT/HCPCS: A0425; A0427 ==

== ENCOUNTER 2022-09-24 03:14 | Emergency (ER) | payer OTHER, MEDICAID ==
[2022-09-24] MEDS ORDERED: HYDROmorphone 2 MG/ML VIAL IVP STA ×2 (03:33→04:23)
[2022-09-24] MEDS ORDERED: DROPERIDOL 5 MG/2 ML VIAL IVP STA (03:33)
[2022-09-24] MEDS ORDERED: diazePAM INJ 5 MG/ML SYRINGE IVP STA ×2 (03:33→04:23)
[2022-09-24] MEDS ORDERED: SODIUM CHLORIDE 0.9% 1,000 ML IV STA (03:36)
[2022-09-24] MEDS ORDERED: FAMOTIDINE 20 MG/2 ML VIAL IVP STA (03:38)
--- NOTE | 2022-09-24 03:39 | ED Physician Documentation ---
PD HPI ABD PAIN - Stated complaint Stated Complaint: RIB PAIN, NAUSEA - Chief complaint Chief Complaint: General - History obtained from History obtained from: Patient, EMS - History of Present Illness Timing - onset: How many days ago (several days of pain lower ribs/upper abd, worse with movement. Also having increased degree of his chronic back pain. History of anxiety and this is worse the past few days and mikael today/tonight. On further questioning of med scripts, he has been having taper of his oxycodone and has run out 1 week) Timing - duration: Days Timing - details: Gradual onset, Still present, Waxing and waning Quality: Cramping, Aching, Pain Location: Epigastric, Other (upper abd/lower chest pain. Also back pain.) Improved by: No: Eating Worsened by: No: Eating, Breathing Associated symptoms: Nausea, Loss of appetite. No: Fever, Vomiting, Diarrhea Similar symptoms before: Diagnosis (has had some upper abd pains due to small intestine problems or related to prior gastric bypass.) Recently seen: Clinic (He sees primary care pain specialist named Gerardo Ramsey who has by review of his [facility] form been tapering his short acting oxycodone 20 mg tablets by 1 tablet/day for the last 8 or 9 months. Patient states he has been still needing the pain medication at prior doses so has run out a week ago.) Review of Systems Constitutional: reports: Myalgias, Fatigue. denies: Fever Nose: denies: Rhinorrhea / runny nose, Congestion Throat: denies: Sore throat Cardiac: reports: Chest pain / pressure. denies: Palpitations, Pedal edema, Calf pain Respiratory: denies: Cough GI: reports: Abdominal Pain, Nausea, Bloody / black stool (he states dark stools the past week). denies: Vomiting, Diarrhea Musculoskeletal: reports: Back pain Neurologic: reports: Generalized weakness. 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 : Benign prostate hypertrophy, Nocturia, Frequency HEENT: Chronic sinusitis Psych: Depression, Anxiety, Panic attacks, ADD/ADHD, Claustrophobia, Eating disorder Musculoskeletal: Osteoarthritis Derm: None - Past Surgical History Past Surgical History: Yes General: Gastric surgery (Bariatric Celina-en-Y gastric bypass.), Other Ortho: Shoulder arthroplasty, Other - Present Medications Home Medications: Ambulatory Orders Medication Instructions Recorded Confirmed Cyclobenzaprine [Flexeril] 10 mg PO DAILY 10/22/16 01/04/22 Tizanidine HCl 4 mg PO QPM 10/22/16 01/04/22 Venlafaxine HCl [Effexor Xr] 300 mg PO DAILY 10/22/16 01/04/22 diazePAM [Diazepam] 10 mg PO TID PRN 05/22/19 01/04/22 Aspirin [Adult Low Dose Aspirin EC] 81 mg PO DAILY 05/23/19 01/04/22 Fluticasone [Flonase] 2 sprays LIZ DAILY PRN 05/23/19 01/04/22 Losartan [Cozaar] 50 mg PO DAILY 11/04/20 01/04/22 Oxycodone HCl [Oxycontin] 60 mg ORAL BID 11/04/20 01/04/22 Albuterol Sulfate [Proair Hfa 1 puffs INH BID PRN 01/04/22 01/04/22 Inhaler] Ascorbic Acid [Vitamin C] 1,000 mg PO DAILY 01/04/22 01/04/22 Carvedilol [Coreg] 25 mg PO BID 01/04/22 01/04/22 Cyanocobalamin (Vitamin B-12) 1,000 mcg PO DAILY 01/04/22 01/04/22 [Vitamin B-12] Ferrous Sulfate 650 mg PO DAILY 01/04/22 01/04/22 Lidocaine Patch 5% [Lidoderm Patch] 2 patch TOP DAILY PRN 01/04/22 01/04/22 Magnesium Oxide [Mag Ox] 400 mg PO DAILY 01/04/22 01/04/22 Oxycodone HCl 60 mg PO Q4H PRN 01/04/22 01/04/22 Prochlorperazine Maleate 10 mg PO Q6H PRN 01/04/22 01/04/22 ondansetron HCL [Ondansetron HCl] 8 mg PO BID PRN 01/04/22 01/04/22 Saccharomyces Boulardii [Florastor] 250 mg PO BIDWM #20 cap 01/06/22 cefUROXime axetiL [Ceftin] 500 mg PO Q12H 10 Days #40 tablet 01/06/22 Pantoprazole [Protonix] 40 mg PO DAILY 30 Days #30 tablet 09/24/22 Sucralfate [Carafate] 1 gm PO ACHS #28 tablet 09/24/22 diazePAM [Valium] 5 mg PO BID #20 tablet 09/24/22 oxyCODONE [Roxicodone] 30 mg PO QID 5 Days #20 tablet 09/24/22 - Allergies Allergies/Adverse Reactions: Allergies Allergy/AdvReac Type Severity Reaction Status Date / Time apple AdvReac Nausea Verified 09/24/22 03:27 chocolate flavor AdvReac Nausea Verified 09/24/22 03:27 crab AdvReac Nausea Verified 09/24/22 03:27 ibuprofen AdvReac Unknown Verified 09/24/22 03:27 rice AdvReac Nausea Verified 09/24/22 03:27 scallops AdvReac Nausea Verified 09/24/22 03:27 shellfish derived AdvReac Nausea Verified 09/24/22 03:27 - Social History Does the pt smoke?: No Smoking Status: Never smoker Does the pt drink ETOH?: No Does the pt have substance abuse?: No - Immunizations Immunizations are current?: Yes - POLST Patient has POLST: No POLST Status: Full Code PD ED PE NORMAL - Vitals Vital signs reviewed: Yes - General General: Alert and oriented X 3, Well developed/nourished, Other (Seems mostly anxious rather than in pain per se but still states in significant pain.) - Neck Neck: Supple, no meningeal sign, No adenopathy - Cardiac Cardiac: No murmur. No: RRR (regular but mild tachycardia) - Respiratory Respiratory: No respiratory distress, Clear bilaterally - Abdomen Abdomen: Normal bowel sounds, Soft, Non distended, No organomegaly, Other (tender epigastric without guarding. ) - Derm Derm: Warm and dry. No: Normal color (somewhat pale) - Extremities Extremities: No calf tenderness / cord, Other (1+ edema in both lower legs. Some muscle wasting of lower legs. He is able to stand and transfer from EMS cart to ED cart. Uses cane. ) Results - Vitals Vitals: Vital Signs - 24 hr 09/24/22 09/24/22 09/24/22 03:22 04:59 06:11 Temperature 36.8 C Heart Rate 102 H 75 Respiratory 10 L 16 Rate Blood Pressure 195/104 H 199/98 H 196/100 H O2 Saturation 100 100 100 Oxygen O2 Source Room air - EKG (time done) on presentation Rhythm: NSR Intervals: LBBB QRS: LVH Ischemia: Non specific changes Compare to prior EKG: Unchanged from prior EKG (December 2021.) - Labs Labs: Laboratory Tests 09/24/22 09/24/22 09/24/22 03:51 03:51 03:51 WBC 12.3 H RBC 4.82 Hgb 13.4 L Hct 40.6 L MCV 84.2 MCH 27.8 MCHC 33.0 RDW 13.0 Plt Count 221 MPV 9.9 Neut # (Auto) 9.7 H Lymph # (Auto) 1.5 [place] # (Auto) 0.9 Eos # (Auto) 0.1 Baso # (Auto) 0.0 Absolute Nucleated RBC 0.00 Nucleated RBC % 0.0 Sodium 132 L Potassium 3.4 L Chloride 94 L Carbon Dioxide 26 Anion Gap 12.0 BUN 11 Creatinine 1.3 H Estimated GFR (MDRD) 56 L Glucose 321 H Calcium 9.0 Phosphorus 4.2 Magnesium 1.8 Total Bilirubin 0.9 AST 27 ALT 22 Alkaline Phosphatase 120 Troponin I High Sens 6.6 B-Natriuretic Peptide Total Protein 7.7 Albumin 4.5 Globulin 3.2 Albumin/Globulin Ratio 1.4 Lipase 21 L Vitamin B12 TSH 09/24/22 09/24/22 03:51 03:51 WBC RBC Hgb Hct MCV MCH MCHC RDW Plt Count MPV Neut # (Auto) Lymph # (Auto) [place] # (Auto) Eos # (Auto) Baso # (Auto) Absolute Nucleated RBC Nucleated RBC % Sodium Potassium Chloride Carbon Dioxide Anion Gap BUN Creatinine Estimated GFR (MDRD) Glucose Calcium Phosphorus Magnesium Total Bilirubin AST ALT Alkaline Phosphatase Troponin I High Sens B-Natriuretic Peptide 24 Total Protein Albumin Globulin Albumin/Globulin Ratio Lipase Vitamin B12 283 TSH 2.30 - Rads (name of study) chest xray Radiology: Prelim report reviewed, EMP read indepedently (no acute process. ), See rad report PD Medical Decision Making - ED course Complexity details: reviewed old records ([facility] form and also pharmacy records.He has had a steadily decreasing amount of the oxycodone 20 mg tablets monthly since December. It has gone down by 30 tablets/month most months. Started at 450 tablets/month and is most recent 300. The patient had been advised that he was going to get tapered.), considered differential (The patient is having lower chest upper abdominal pain. He also states he is having increase in his baseline back pain and significant anxiety. Upon questioning he does admit that he ran out of his pain medication and anxiety meds. The oxycodone almost a week ago and the diazepam yesterday. ), d/w patient Reviewed Lab Results: His EKG is normal without any ischemic changes. Interpretation by me. Chest x- ray is clear without any signs of cardiopulmonary cause of pain. I reviewed the images and also the radiology report. His blood tests show a slightly elevated white count and a normal hemoglobin. Chemistry panel otherwise is normal. His troponin is not elevated and the BNP is in the normal range as well so no signs of heart attack or heart failure. Lipase is normal at 21 so no signs of pancreatitis. Social Determinants of Health: He has had chronic pain and has been on high doses of opioids and benzodiazepines. His primary care pain specialist appears to be tapering him down by 1 pain pill per day each month from last December. At that point he had 450 tablets/month so 15/day of the 20 mg oxycodones. The most recent prescription was 300 tablets representing 10/day. His diazepam is remained the same at three 5 mg tablets daily and his OxyContin has remained at two 60 mg tablets daily. He likely is having a degree of withdrawal symptoms now as he had been taking his medications at the prior dosings and so ran out of his anoxic code own he states about 5 or 6 days ago. He is out of his diazepam yesterday but his last refill was on August 24 so its actually appropriate to have run out and would have a refill today available. His last refill on the oxycodone was 1223 so he is actually about 15 days ahead of schedule. ED course: He is [facility] form shows prescriptions regularly from Dr. Ramsey and no other sources. The patient feels that he has hit the point where he cannot taper anymore and because of the degree of pain. He will need to discuss this with his primary care pain specialist. Potential would be to hold the taper at 300- 364 a few months before decreasing the taper more. We did try calling Dr. Ramsey's office but only got an office recording and no on-call service. We will try to talk with Dr. Ramsey later when the office opens. However given the patient's certain withdrawal over the weekend if not prescribed some medication, I and his apparent good han in not having received prescriptions from other sources for at least the last year that is on record, I felt okay with prescribing him several days of medication to get through the weekend and be able to talk with Dr. Ramsey about the situation. It would be his providers discretion however whether to still his medication early. Again he had use the oxycodone in a higher than prescribed amount but it had been tapered regularly over the last 8 months. He has not overused the OxyContin and is on track with that. He has compensated and over use the diazepam system and is short of his scheduled refill for that. Departure - Departure Disposition: 01 Home, Self Care Clinical Impression: Upper abdominal pain, Status post gastric bypass for obesity, Chronic pain disorder, Opioid dependence with withdrawal, Anxiety Condition: Stable Record reviewed to determine appropriate education?: Yes Instructions: ED Chronic Pain Management Follow-Up: Choco Ramsey MD [Primary Care Provider] - Prescriptions: Sucralfate [Carafate] 1 gm PO ACHS #28 tablet Pantoprazole [Protonix] 40 mg PO DAILY 30 Days #30 tablet oxyCODONE [Roxicodone] 30 mg PO QID 5 Days #20 tablet diazePAM [Valium] 5 mg PO BID #20 tablet Comments: I think your upper abdomen/lower chest pain is likely related to some irritation of the duodenum around your gastric bypass area. I would treat it with acid reducing medicine of pantoprazole daily for the next month. I would also combine treatment with Carafate to coat the esophagus and early small intestine 4 times daily as directed for the next 7 days. Follow-up with your primary care regarding any further treatment if this is not improving well. Regarding your chronic pain and anxiety treatments. You will need to call your primary care Dr. Ramsey today to discuss the tapering of your pain medicine and that you ran out of medication early. I can see on your medication prescription drug report (emergency department information exchange) that you have gotten regular prescriptions from Dr. Ramsey and have not gotten any from other sources. This does show good han in maintaining your medications through a single provider. At this point I can provide a prescription short-term to try to get you through the next several days until you can discuss it with your primary care office. I can prescribe the Diazepam at usual amounts. However I am not able through the emergency department to prescribe you the amount of opioid medication that you are on regularly. As such your going to have to get by at a lower dose than usual for the next few days but it is better than not having any at all. I certainly would want to advise you ahead of time that this is a single/exception and we would not be "bridging the gap" for running out early in the future. I sent your prescriptions to [facility] as requested. I am prescribing a short course of narcotic pain medication for you. These are potentially dangerous and addictive medications that should be used carefully. These medications may constipate you. Take an [id number] stool softener such as docusate twice daily with plenty of water while taking these medications. If you go 24 hours without a bowel movement, take [id number] [id number], per package instructions. Do not drink or drive while taking these medications. If you received narcotic or sedating medications while in the emergency department do not drive for 24 hours. Store this medication in a safe, secure place and out of reach of children. It is a violation of federal law to give or sell this medication to another person or to use in a manner other than prescribed. The ED will not refill narcotic prescriptions, including prescriptions lost or stolen. You can dispose of unwanted medications at the [facility]'s office or at several pharmacies such as [facility].
[2022-09-24 03:59] LABS: BASOPHILS % (AUTO) 0.3 %; EOSINOPHILS # (AUTO) 0.1 10^3/uL (0.0-0.7); EOSINOPHILS % (AUTO) 0.8 %; HCT - HEMATOCRIT 40.6 % (42.0-52.0); HGB - HEMOGLOBIN 13.4 g/dL (14.0-18.0); LYMPHOCYTES # (AUTO) 1.5 10^3/uL (1.5-3.5); LYMPHOCYTES % (AUTO) 12.5 %; MEAN CORPUSCULAR HEMOGLOBIN 27.8 pg (27.0-31.0); MEAN CORPUSCULAR VOLUME 84.2 fL (80.0-94.0); MEAN PLATELET VOLUME 9.9 fL (7.4-11.4); MONOCYTES # (AUTO) 0.9 10^3/uL (0.0-1.0); MONOCYTES % (AUTO) 6.9 %; NEUTROPHILS # (AUTO) 9.7 10^3/uL (1.5-6.6); NEUTROPHILS % (AUTO) 78.8 %; PLT - PLATELET COUNT 221 10^3/uL (130-450); RED BLOOD COUNT 4.82 10^6/uL (4.70-6.10); WHITE BLOOD COUNT 12.3 x10^3/uL (4.8-10.8)
[2022-09-24 04:17] LABS: ALBUMIN 4.5 g/dL (3.2-5.5); ALBUMIN/GLOBULIN RATIO 1.4 (1.0-2.2); BILIRUBIN,TOTAL 0.9 mg/dL (0.2-1.0); CREATININE 1.3 mg/dL (0.6-1.2); MAGNESIUM 1.8 mg/dL (1.7-2.8); PHOSPHORUS 4.2 mg/dL (2.5-4.6); POTASSIUM 3.4 mmol/L (3.5-5.0); TOTAL PROTEIN 7.7 g/dL (6.7-8.2)
[2022-09-24 04:31] LABS: THYROID STIMULATING HORMONE 2.3 uIU/mL (0.34-5.60)
[2022-09-24] MEDS ORDERED: SUCRALFATE 1 GM/10 ML UDC PO STA (05:45)
[2022-09-24 06:37] VITALS: BP 186/101
--- NOTE | 2022-09-24 07:52 | XRAY Report ---
PROCEDURE: Chest 1 View X-Ray INDICATIONS: chest pain TECHNIQUE: One view of the chest was acquired. COMPARISON: None. FINDINGS: There is moderate rotation. Surgical changes and devices: There is a Port-A-Cath with the tip projecting to the atrial caval diana ction. Lower cervical spine fusion. Lungs and pleura: No pleural effusions or pneumothorax. Lungs are clear. Mediastinum: Mediastinal contours appear normal. Heart size is normal. Bones and chest wall: No suspicious bony lesions. Overlying soft tissues appear unremarkable. IMPRESSION: 1. No acute cardiopulmonary disease. No significant discrepancy with the preliminary interpretation. Reviewed by: Ronni Cabrales MD on 09/24/2022 7:[address] [facility] Approved by: Ronni Cabrales MD on 09/24/2022 7:[address] [facility] Station ID: [id number]
== END 2022-09-24 06:36 | disposition home or self-care (01) ==
LOC: ED 03:14
DX: G89.4 Chronic pain syndrome (principal); F11.23 Opioid dependence with withdrawal; F41.9 Anxiety disorder, unspecified; Z98.84 Bariatric surgery status
CPT/HCPCS: 36415; 71045; 80053; 82607; 83690; 83735; 83880; 84100; 84443; 84484; 85025; 93005; 96361; 96374; 96375; 96376; 99285; A9270; J1170

== ENCOUNTER 2022-10-30 19:51 | Outpatient (CLI) | payer MEDICARE, OTHER, MEDICAID | END 2022-10-30 19:52 | disposition EMS.NT | LOC: EMS 19:51 | DX: Z03.89 Encounter for observation for other suspected diseases and conditions ruled out (principal) ==

== ENCOUNTER 2022-10-30 22:12 | Outpatient (CLI) | payer MEDICARE, OTHER, MEDICAID | END 2022-10-30 22:13 | disposition critical access hospital (66) | LOC: EMS 22:12 | DX: R51.9 Headache, unspecified (principal); R17 Unspecified jaundice | CPT/HCPCS: A0425; A0427 ==

== ENCOUNTER 2022-10-30 22:30 | Emergency (ER) | payer MEDICARE, OTHER, MEDICAID ==
--- NOTE | 2022-10-30 22:37 | ED Physician Documentation ---
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 Initial Hypotension: MAP less than 65 mmHg Persistent Hypotension: MAP less than 65 mmHg, SBP less than 90 mmHg Possible source of Sepsis: Unknown Mental/Cognitive Status: Oriented to name, Oriented to date Capillary refill: Less than 2 seconds Peripheral Pulse Strength: 1+ Faint Peripheral Pulse Location: Radial Bedside ultrasound performed: No Departure - Departure Disposition: 02 Transfer Acute Care Hosp Clinical Impression: Severe sepsis, Ascending cholangitis, Cardiomegaly, Hypoxia, History of developmental delay, Status post gastric bypass for obesity, Chronic narcotic dependence Hypotension Qualifiers: Hypotension type: unspecified hypotension type Qualified Code(s): I95.9 - Hypotension, unspecified Condition: Poor
[2022-10-30] MEDS ORDERED: SODIUM CHLORIDE 0.9% 1,000 ML IV STA (22:42)
[2022-10-30 22:51] LABS: BASOPHILS % (AUTO) 0.4 %; EOSINOPHILS % (AUTO) 27.8 %; HCT - HEMATOCRIT 36.4 % (42.0-52.0); HGB - HEMOGLOBIN 11.4 g/dL (14.0-18.0); LYMPHOCYTES % (AUTO) 3.4 %; MEAN CORPUSCULAR HEMOGLOBIN 27.4 pg (27.0-31.0); MEAN CORPUSCULAR HGB CONC 31.3 g/dL (32.0-36.0); MEAN CORPUSCULAR VOLUME 87.5 fL (80.0-94.0); MEAN PLATELET VOLUME 11.7 fL (7.4-11.4); MONOCYTES % (AUTO) 3.3 %; PLT - PLATELET COUNT 91 10^3/uL (130-450); RED BLOOD COUNT 4.16 10^6/uL (4.70-6.10); RED CELL DISTRIBUTION WIDTH 14.4 % (12.0-15.0); WHITE BLOOD COUNT 26.1 x10^3/uL (4.8-10.8)
[2022-10-30 22:56] LABS: ABNORMAL LYMPHS % (MANUAL) 0 %
[2022-10-30 23:23] LABS: BAND NEUTROPHILS % (MANUAL) 36 %; DIFFERENTIAL COMMENT MANUAL DIFFERENTIAL; LYMPHOCYTES # (MANUAL) 0.5 10^3/uL (1.5-3.5); LYMPHOCYTES % (MANUAL) 2 %; METAMYELOCYTES % (MANUAL) 3 %; MONOCYTES # (MANUAL) 0.8 10^3/uL (0.0-1.0); MYELOCYTES % (MANUAL) 1 %; NEUTROPHILS # (MANUAL) 23.8 10^3/uL (1.5-6.6); PLATELET ESTIMATE, MANUAL DECREASED (<130,000) (NORMAL); RBC MORPHOLOGY (MULTIPLE) NORMAL APPEARANCE (NORMAL)
[2022-10-30 23:27] LABS: ACETAMINOPHEN < 10 ug/mL (10-30); ALKALINE PHOSPHATASE 233 IU/L (42-121); ALT ALANINE AMINOTRANSFERASE 200 IU/L (10-60); AST ASPARTATE AMINOTRANSFERASE 501 IU/L (10-42); BILIRUBIN,TOTAL 5.6 mg/dL (0.2-1.0); BUN - BLOOD UREA NITROGEN 36 mg/dL (6-20); CREATININE 4.5 mg/dL (0.6-1.2); ETOH - ETHANOL < 5.0 mg/dL; GFR - MDRD 13 (>89); LIPASE 52 U/L (22-51); SALICYLATE 7.8 mg/dL; TOTAL PROTEIN 5.7 g/dL (6.7-8.2)
[2022-10-30 23:28] LABS: ALBUMIN 2.9 g/dL (3.2-5.5); CALCIUM 7.6 mg/dL (8.5-10.3); CHLORIDE 96 mmol/L (101-111); GLUCOSE 158 mg/dL (70-100); POTASSIUM 3.3 mmol/L (3.5-5.0); SODIUM 133 mmol/L (135-145)
[2022-10-30] MEDS ORDERED: metroNIDAZOLE 500 MG/100 ML 500 MG/100 ML BAG IV STA (23:28)
[2022-10-30] MEDS ORDERED: VANCOMYCIN INJ 1.25 GM in SODIUM CHLORIDE 0.9% 250 ML IV STA (23:28)
[2022-10-30] MEDS ORDERED: LACTATED RINGERS IV STA (23:28)
[2022-10-30] MEDS ORDERED: CEFEPIME 2 GM in SODIUM CHLORIDE 0.9% MINIBAG 100 ML IV STA (23:28)
[2022-10-30] MEDS ORDERED: NOREPINEPHRINE/D5W 8 MG/250 ML BAG IV STA (23:28)
[2022-10-30 23:31] LABS: CARBON DIOXIDE - CO2 10 mmol/L (21-32)
[2022-10-30 23:44] LABS: MUDS CUTOFF CONCENTRATIONS CUTOFF CONC BELOW:
--- NOTE | 2022-10-30 23:49 | XRAY Report ---
PROCEDURE: Chest 1 View X-Ray INDICATIONS: tachycardia, hypotension TECHNIQUE: One view of the chest was acquired. COMPARISON: 09/24/2022 chest plain film. FINDINGS: Surgical changes and devices: Port-A-Cath from a right-sided approach extends into the atrial caval junction. Lungs and pleura: No pleural effusions or pneumothorax. Lungs are mildly edematous. Mediastinum: Mediastinal contours appear normal. Heart size is globally enlarged to a mild degree.. Bones and chest wall: No suspicious bony lesions. Overlying soft tissues appear unremarkable. IMPRESSION: Port-A-Cath in normal position. The change from appearance of the chest 09/24/2022 to the current exam ination is suggestive of pulmonary edema and new global mild cardiomegaly. Reviewed by: Miguelito Díza MD on 10/30/2022 11:47 PM PST Approved by: Miguelito Díaz MD on 10/30/2022 11:47 PM PST Station ID: [id number]
[2022-10-30] MEDS ORDERED: VANCOMYCIN 1 GM VIAL ONE (23:51)
[2022-10-30] MEDS ORDERED: NOREPINEPHRINE/0.9 % NS 8 MG/250 ML BAG IV ONE (23:52)
--- NOTE | 2022-10-30 23:52 | CT Report ---
PROCEDURE: HEAD WO INDICATIONS: headache, recent fall TECHNIQUE: Noncontrast 4.5 mm thick angled axial sections acquired from the foramen magnum to the vertex. For r adiation dose reduction, the following was used: automated exposure control, adjustment of mA and/or kV according to patient size. COMPARISON: Prior head CT 11/07/2020. FINDINGS: Image quality: Somewhat reduced by metal artifact associated with what appears to be some form of trent ctrical lead superimposed on the soft tissues crossing the lower third of the calvarium.. CSF spaces: Basal cisterns are patent. No extra-axial fluid collections. Ventricles are normal in size and shape. Brain: No midline shift. No intracranial masses or hemorrhage. Del Valle-white matter interface is norm al. Skull and face: Calvarium and visualized facial bones are intact, without suspicious lesions. Sinuses: Visualized sinuses and mastoids are clear. IMPRESSION: Mild metal artifact as discussed, no acute trauma found. No intracranial hemorrhage iden tified. Reviewed by: Miguelito Díaz MD on 10/30/2022 11:51 PM PST Approved by: Miguelito Díaz MD on 10/30/2022 11:51 PM PST Station ID: [id number]
[2022-10-31 00:07] LABS: AMPHETAMINE SCREEN,URINE NEGATIVE (NEGATIVE); BARBITURATE SCREEN,UR NEGATIVE (NEGATIVE); BENZODIAZEPINES SCREEN, URINE POSITIVE (NEGATIVE); COCAINE SCREEN URINE NEGATIVE (NEGATIVE); METHADONE SCREEN, URINE NEGATIVE (NEGATIVE); METHAMPHETAMINES SCREEN, URINE NEGATIVE (NEGATIVE); OPIATE SCREEN, URINE POSITIVE (NEGATIVE); OXYCODONE SCREEN, URINE POSITIVE (NEGATIVE); PROPOXYPHENE SCREEN, URINE NEGATIVE (NEGATIVE); THC CANNABINOID SCREEN, URINE NEGATIVE (NEGATIVE); TRICYCLIC ANTIDEPRESSANT,URINE NEGATIVE (NEGATIVE)
[2022-10-31 00:23] LABS: B. PARAPERTUSSIS- RESP PCR PAN NOT DETECTED; B. PERTUSSIS- RESP PCR PANEL NOT DETECTED; C. PNEUMONIAE- RESP PCR PANEL NOT DETECTED; CORONAVIRUS 229E-RESP PCR NOT DETECTED; CORONAVIRUS HKU1-RESP PCR NOT DETECTED; CORONAVIRUS NL63-RESP PCR NOT DETECTED; CORONAVIRUS OC43-RESP PCR NOT DETECTED; HUMAN METAPNEUMOVIRUS NOT DETECTED; INFLUENZA A- RESP PCR PANEL NOT DETECTED; INFLUENZA B - RESP PCR PANEL NOT DETECTED; M. PNEUMONIAE- RESP PCR PANEL NOT DETECTED; PARAINFLUENZA VIRUS 1 NOT DETECTED; PARAINFLUENZA VIRUS 2 NOT DETECTED; PARAINFLUENZA VIRUS 3 NOT DETECTED; PARAINFLUENZA VIRUS 4 NOT DETECTED; RHINOVIRUS/ENTEROVIRUS NOT DETECTED; RSV- RESP PCR PANEL NOT DETECTED; SARS-CoV-2 -RESP PCR PANEL NOT DETECTED
[2022-10-31] MEDS ORDERED: LORazepam 2 MG/ML VIAL IVP STA ×2 (01:07→02:48)
[2022-10-31 01:21] LABS: INR 1.6 (0.8-1.2); PT - PROTHROMBIN TIME 17.1 secs (9.9-12.6)
[2022-10-31 01:28] LABS: PARTIAL THROMBOPLASTIN TIME 33.6 secs (24.9-33.3)
[2022-10-31] MEDS ORDERED: ONDANSETRON 4 MG/2 ML VIAL IVP STA (02:41)
[2022-10-31] MEDS ORDERED: ONDANSETRON 4 MG/2 ML VIAL ONE (02:43)
[2022-10-31] MEDS ORDERED: LORazepam 2 MG/ML VIAL ONE (02:51)
[2022-10-31] MEDS ORDERED: iohexoL-300 100 ML VIAL ONE (02:51)
--- NOTE | 2022-10-31 03:50 | ANESTHESIA PROCEDURE NOTE ---
Anesth Central Line Template - Central Line Central Line Preparation: Unable to obtain consent, Time out completed, Ultra sound used, Sterile prep and drape Central line location: Left IJ Central line type: Triple lumen Central line catheter tip site resides: Superior vena cava (SVC) Central line aftercare: Chlorhexidine disc placed, Secured (sutured), Placement confirmed, No pneumothorax, No complications, Bundle checklist complete, Other (first attempt on Right IJ unable to thread.)
[2022-10-31] MEDS ORDERED: fentaNYL 100 MCG/2 ML VIAL IVP STA (05:44)
[2022-10-31] MEDS ORDERED: oxyCODONE 5 MG TABLET PO STA (06:53)
[2022-10-31] MEDS ORDERED: diazePAM 5 MG TABLET PO STA (06:53)
[2022-10-31] MEDS ORDERED: SODIUM CHLORIDE 0.9% 1,000 ML IV STA (08:02)
--- NOTE | 2022-10-31 08:42 | CT Report ---
PROCEDURE: CHEST WO INDICATIONS: undifferentiated shock TECHNIQUE: Noncontrast 1mm axial images were acquired from the pulmonary apices to the posterior costophrenic an gles. Axial 5 mm soft tissue kernel reconstructions were performed as well as 8 mm axial MIP and cor onal and sagittal 5 mm reformations. For radiation dose reduction, the following was used: automate d exposure control, adjustment of mA and/or kV according to patient size. COMPARISON: 12/31/2019. Correlation is also made with the accompanying abdomen and pelvis CT, 10/31/19. FINDINGS: Image quality: Excellent. Lungs and pleura: Mild dependent consolidation is seen on both sides. Lung volumes overall are low. N o pleural effusions or pneumothorax. Central and peripheral airways are patent and normal in caliber . Mediastinum: Heart size is moderately enlarged. No pericardial effusion. Prominent coronary artery calcification can be seen. No mediastinal adenopathy by size criteria. The ascending thoracic aorta i s minimally aneurysmal at 4.2 cm. The pulmonary arteries are normal in size. Esophagus is normal in caliber. No hiatal hernia. Bones and chest wall: No suspicious bony lesions. Lower thoracic spine anterior wedge deformities a re seen, as before. No acute vertebral body compression fractures. Lower cervical spine fixation hard kuo is partially seen. Age-appropriate degenerative changes are seen. There is accentuated thoracic kyphosis. No axillary or supraclavicular adenopathy by size criteria. The thyroid is normal in si ze and there are no incidental findings. There is a right-sided chest port seen, with the tip near the cavoatrial junction. A left-sided centr al line is seen, with the tip within the medial/inferior left brachiocephalic vein. Abdomen: Diffuse fatty liver infiltration can be seen. Bariatric surgery can be seen. The visualiz ed portions of the upper abdominal structures are otherwise within normal limits. IMPRESSION: Dependent consolidation is seen, which is attributed to atelectasis. However, differential diagnosis includes infection. Moderate cardiomegaly. Minimally aneurysmal ascending thoracic aorta, 4.2 cm. Additional findings: Right-sided chest port Left-sided central line, with the tip within the medial/inferior left brachiocephalic vein Prominent coronary artery calcification Stable lower thoracic spine anterior wedge deformities, with associated accentuated thoracic kyphosis Fatty liver infiltration Bariatric surgery Note: No significant discrepancy from the preliminary report. Reviewed by: Joe Magdaleno MD on 10/31/2022 7:41 AM [place] Approved by: Joe Magdaleno MD on 10/31/2022 7:41 AM JESSICA Station ID: [id number]
--- NOTE | 2022-10-31 08:46 | CT Report ---
PROCEDURE: ABDOMEN/PELVIS WO INDICATIONS: hypotension, abdominal tenderness TECHNIQUE: Noncontrast 5 mm thick sections acquired from the diaphragms to the symphysis. 5 mm coronal and sagi ttal reformats were then performed. For radiation dose reduction, the following was used: automated exposure control, adjustment of mA and/or kV according to patient size. COMPARISON: Prior CT of the pelvis, 05/22/2019. Correlation is also made with the accompanying chest CT, 10/31/2022. FINDINGS: Image quality: Excellent. ABDOMEN: Lung bases: Lung bases are clear. Heart size is normal. Solid organs: The liver is enlarged and demonstrates diffuse fatty infiltration. Along the posterior aspect of the right liver, several bubbles of gas can be seen. The spleen demonstrates normal size and demonstrates no suspicious lesions. Gallbladder is prominent in size and demonstrates potential layering stones or sludge. Pancreas is n ormal in contours. No adrenal nodules. Kidneys are normal in size, without hydronephrosis or nephro lithiasis. Peritoneum and bowel: Bariatric surgery can be seen. Unenhanced bowel loops demonstrate normal wal l thickness and caliber. No free fluid or air. Nodes and vessels: No retroperitoneal or mesenteric adenopathy by size criteria. Aorta and inferior vena cava are normal in caliber. Miscellaneous: No ventral hernias. PELVIS: Genitourinary: A Ramachandran catheter seen, which decompresses the bladder. Miscellaneous: No inguinal adenopathy. Bilateral fat-containing inguinal hernias are seen. Bones: No suspicious bony lesions. No acute vertebral body compression fractures. Lower thoracic a nterior wedge deformities are seen, chronic. Lumbosacral fixation hardware is seen. Advanced bilatera l hip degenerative change can be seen. IMPRESSION: No acute posttraumatic abnormality can be seen. Enlarged, fatty infiltrated liver, with bubbles of gas along the posterior aspect of liver. Please co rrelate with patient history, including potential recent intervention. Please consider short-term fol low-up. Enlarged gallbladder, with potential dependent layering stones or sludge. Lower thoracic spine anterior wedge deformities are seen, which are chronic. Additional findings: Bariatric surgery Lumbosacral fixation hardware Ramachandran catheter Bilateral fat-containing inguinal hernias Advanced bilateral hip degenerative change Note: No significant discrepancy from the preliminary report. Reviewed by: Joe Magdaleno MD on 10/31/2022 7:45 AM AK[facility] Approved by: Joe Magdaleno MD on 10/31/2022 7:45 AM [facility] Station ID: [id number]
--- NOTE | 2022-10-31 08:54 | XRAY Report ---
PROCEDURE: Chest for Line Placement INDICATIONS: line placement TECHNIQUE: One view of the chest was acquired. COMPARISON: 10/30/2022. Correlation is made with the accompanying chest CT. FINDINGS: Surgical changes and devices: A left-sided central line has been placed, with tip overlying the infe rior aspect of the left brachiocephalic vein. There is a stable right-sided chest port. Lower cervical spine fixation hardware can be seen. Oral surgery noted. Lungs and pleura: No pleural effusions or pneumothorax. Generalized interstitial prominence can be s een. Mediastinum: There is moderate cardiomegaly. Bones and chest wall: No suspicious bony lesions. Overlying soft tissues appear unremarkable. IMPRESSION: The tip of the left-sided central line overlies the inferior aspect of the left brachiocephalic vein. Cardiomegaly and interstitial prominence seen. Stable right-sided chest port. Oral surgery and cervical spine surgery noted. Note: No significant discrepancy from the preliminary report. Reviewed by: Joe Magdaleno MD on 10/31/2022 7:52 AM [facility] Approved by: Joe Magdaleno MD on 10/31/2022 7:52 AM [facility] Station ID: [id number]
[2022-10-31] MEDS ORDERED: metroNIDAZOLE 500 MG/100 ML 500 MG/100 ML BAG IV ONE (09:38)
[2022-10-31] MEDS ORDERED: EPINEPHrine 4 MG in DEXTROSE 5% 246 ML IV STA (09:55)
[2022-10-31] MEDS ORDERED: HALOPERIDOL 5 MG/ML VIAL IVP STA (09:58)
--- NOTE | 2022-10-31 10:06 | ED Physician Documentation ---
ED Addendum - Addendum Addendum: 10/31/22 10:04 Patient was signed out to me at [address] Sharma. Please see his note for full care of this patient. Briefly this is a patient with multisystem organ failure. Severe sepsis. Septic shock. Currently on a Levophed drip. Has a central line and a port. History of CLL. He is full code. The patient has been started on vancomycin, cefepime and Flagyl. Has what appears to be air in the liver, has a distended gallbladder. Possible a sending cholangitis? Lactate is greater than 10. He has received about 5 L of fluid overnight. I have ordered another liter bolus as he has had minimal urine output. His hypotension persists, has cardiomegaly on chest x-ray, therefore we will try changing him from a norepinephrine drip to an epinephrine drip. Dr. Sharma spoke with the hospitalist here and the surgeon here. The surgeon was okay consulting on this patient, but the hospitalist feels that this patient is too ill to stay in our hospital. Therefore calls have been placed to multiple surrounding hospitals including [facility] in [facility] looking for an ICU bed. 10/31/22 13:07 Discussed the case with Dr. Payan, ICU physician at [facility]. She graciously accepts in transfer. The patient was intubated using a dissociative intubation. Placed on Precedex and a fentanyl drip. Patient will be transferred via [facility]. OG tube was placed as well. COBRA forms completed. Blood cultures are positive as well. The blood culture is presumptive for E. coli based on the PCR, likely ESBL. Therefore the patient was changed from cefepime to meropenem. Vancomycin and Flagyl continued. 10/31/22 13:42 I updated the patient's , John Bishop as well. Departure - Departure Disposition: 02 Transfer Acute Care Hosp Clinical Impression: Severe sepsis, Ascending cholangitis, Cardiomegaly, Hypoxia, History of developmental delay, Status post gastric bypass for obesity, Chronic narcotic dependence Hypotension Qualifiers: Hypotension type: unspecified hypotension type Qualified Code(s): I95.9 - Hypotension, unspecified Condition: Poor Procedures - Intubation - Major Provider: Emergency physician Medications: Ketamine, Rocuronium, Lidocaine (nebulized) Blade: Glidescope Tube: Size-enter number (8), Cuffed, Marked at teeth-enter cm, Marked at lips- enter cm (25) Route: Oral Confirmation: Direct visualization, Bilateral breath sounds, No abdominal breath sound, End tidal CO2, Pulse ox, Chest xray Complications: No compications PD MEDICAL DECISION MAKING - Critical Care Time(min): 60 Time Includes: Direct patient care, Review records, Reassess patient, Document care, Coordinate care, Medical consult, See progress note Data interpretation: See progress note Procedures included in critical care time: See progress note Procedures excluded from critical care time: Intubation, See progress note
[2022-10-31 10:15] LABS: EOSINOPHILS % (AUTO) 36.7 %; HCT - HEMATOCRIT 34.4 % (42.0-52.0); HGB - HEMOGLOBIN 10.6 g/dL (14.0-18.0); LYMPHOCYTES % (AUTO) 4.4 %; MEAN CORPUSCULAR HEMOGLOBIN 27.3 pg (27.0-31.0); MEAN CORPUSCULAR HGB CONC 30.8 g/dL (32.0-36.0); MEAN CORPUSCULAR VOLUME 88.7 fL (80.0-94.0); MEAN PLATELET VOLUME 11.9 fL (7.4-11.4); MONOCYTES % (AUTO) 4.9 %; NEUTROPHILS % (AUTO) 43.6 %; PLT - PLATELET COUNT 99 10^3/uL (130-450); RED BLOOD COUNT 3.88 10^6/uL (4.70-6.10); RED CELL DISTRIBUTION WIDTH 14.7 % (12.0-15.0); WHITE BLOOD COUNT 30.1 x10^3/uL (4.8-10.8)
[2022-10-31 10:21] LABS: SLIDE REVIEW? Indicated
[2022-10-31 10:22] LABS: ABNORMAL LYMPHS % (MANUAL) 0 %
--- NOTE | 2022-10-31 10:25 | ED Physician Documentation ---
Restraint Bsne-et-Xllg - Immediate Situation Face to Face Evaluation Date: 10/31/22 Face to Face Evaluation Time: 04:45 Restraint Classification: Violent, physical Restraint Type: Locked extremity - Patient's Reaction & Behaviors Safety: Non-compliant - Behavioral Condition Attitude: Indifferent Behavior: Uncooperative Orientation: Person, Place Mood: Anxious - Evaluation Review of Systems: See H+P Pertinent History/Illicit Drugs/Medications/Results: see H+P - Plan Need to Continue or Terminate Violent or Chemical Restraint: able to demonstrate cooperative behavior that suggests he will not continue to remove monitoring devices and vascular access
[2022-10-31 10:36] LABS: ALBUMIN 2.6 g/dL (3.2-5.5); BILIRUBIN,TOTAL 7.8 mg/dL (0.2-1.0); CREATININE 4.4 mg/dL (0.6-1.2); POTASSIUM 4.6 mmol/L (3.5-5.0); TOTAL PROTEIN 5.2 g/dL (6.7-8.2)
[2022-10-31 10:50] LABS: BAND NEUTROPHILS % (MANUAL) 38 %; EOSINOPHILS # (MANUAL) 0.3 10^3/uL (0-0.7); LYMPHOCYTES # (MANUAL) 0.9 10^3/uL (1.5-3.5); LYMPHOCYTES % (MANUAL) 3 %; METAMYELOCYTES % (MANUAL) 13 %; MONOCYTES # (MANUAL) 0.9 10^3/uL (0.0-1.0); NEUTROPHILS # (MANUAL) 24.1 10^3/uL (1.5-6.6)
[2022-10-31 10:53] LABS: PLATELET MORPHOLOGY NORMAL APPEARANCE (NORMAL); RBC MORPHOLOGY (MULTIPLE) NORMAL APPEARANCE (NORMAL)
[2022-10-31 10:54] LABS: PLATELET ESTIMATE, MANUAL DECREASED (<130,000) (NORMAL)
[2022-10-31 10:55] LABS: DIFFERENTIAL COMMENT MANUAL DIFFERENTIAL; WBC MORPHOLOGY (MULTIPLE) 3+ VACUOLATION (NORMAL)
[2022-10-31] MEDS ORDERED: CEFEPIME 2 GM in SODIUM CHLORIDE 0.9% MINIBAG 100 ML IV STA (11:29)
[2022-10-31] MEDS ORDERED: VANCOMYCIN INJ 1 GM in SODIUM CHLORIDE 0.9% 250 ML IV STA (11:33)
[2022-10-31] MEDS ORDERED: MEROPENEM 1 GM in SODIUM CHLORIDE 0.9% MINIBAG 100 ML IV STA (11:41)
[2022-10-31 12:15] LABS: GLUCOSE, URINE (UA) NEGATIVE (NEGATIVE); KETONES,URINE (UA) TRACE mg/dL (NEGATIVE); LEUKOCYTE ESTERASE, URINE NEGATIVE (NEGATIVE); NITRITE,URINE NEGATIVE (NEGATIVE); OCCULT BLOOD,URINE LARGE (NEGATIVE); PH,URINE 5.5 PH (5.0-7.5); PROTEIN,URINE 30 mg/dL (NEGATIVE); UROBILINOGEN,URINE 0.2 (NORMAL) E.U./dL (NORMAL)
[2022-10-31] MEDS ORDERED: LIDOCAINE TOPICAL 4% 50 ML BOTTLE MM STA (12:21)
[2022-10-31] MEDS ORDERED: KETAMINE 500 MG/10 ML VIAL IVP STA (12:21)
[2022-10-31] MEDS ORDERED: ROCURONIUM 50 MG/5 ML VIAL IVP ONE (12:21)
[2022-10-31 12:44] LABS: BILIRUBIN,URINE NEGATIVE (NEGATIVE); CLARITY,URINE SL. CLOUDY (CLEAR); ICTOTEST,URINE NEGATIVE
[2022-10-31 12:45] LABS: AMORPHOUS SEDIMENT,UR Few /LPF; BACTERIA,URINE Few /HPF (None Seen); CASTS, URINE 0-2 Hyaline Casts /LPF; SQUAMOUS EPITHELIAL CELL,UR RARE Squamous (<= Few)
[2022-10-31] MEDS ORDERED: fentaNYL 2,500 MCG in SODIUM CHLORIDE 0.9% 200 ML IV STA (13:02)
[2022-10-31] MEDS ORDERED: DEXMEDETOMIDINE 400 MCG/100 ML 100 ML IV PRN (13:02)
--- NOTE | 2022-10-31 13:02 | CONSULTATION NOTE ---
Referring Provider Consult Date: 10/31/22 Chief Complaint - Chief Complaint Chief Complaint: came in after fall from bed and week. History of Present Illness - History Obtained From Records Reviewed: yes History obtained from: ED MD Exam Limitations: patient not easily arousable History - Past Medical History Cardiovascular: reports: Hypertension Respiratory: reports: None Neuro: reports: Headaches, Peripheral neuropathy Endocrine/Autoimmune: reports: Type 2 diabetes GI: reports: GERD, Ulcers BEADWORKER: reports: None : reports: Benign prostate hypertrophy, Nocturia, Frequency HEENT: reports: Chronic sinusitis Psych: reports: Depression, Anxiety, Panic attacks, ADD/ADHD, Claustrophobia, Eating disorder Musculoskeletal: reports: Osteoarthritis Derm: reports: None MRSA Hx?: Yes - Past Surgical History General: reports: Gastric surgery (Bariatric Celina-en-Y gastric bypass.), Other Ortho: reports: Shoulder arthroplasty, Other - Family & Social History Family History: Mother: , Father: Family History Comment/Other: Mother: after complications from hemodialysis, history of CAD, DM. Father: of old age several years ago Social History Notes: The patient is retired from the [employer] for the past 10 years, lives independently in [place]. Has no children, was never . Denies tobacco, alcohol or illicit drug use. Wishes to be a FULL code. - Substance History Use: Uses substance without health or social issues: NONE - POLST Patient has POLST: No POLST Status: Full Code Meds/Allgy - Home Medications Home Medications: Ambulatory Orders Medication Instructions Recorded Confirmed Cyclobenzaprine [Flexeril] 10 mg PO DAILY 10/22/16 01/04/22 Tizanidine HCl 4 mg PO QPM 10/22/16 01/04/22 Venlafaxine HCl [Effexor Xr] 300 mg PO DAILY 10/22/16 01/04/22 diazePAM [Diazepam] 10 mg PO TID PRN 05/22/19 01/04/22 Aspirin [Adult Low Dose Aspirin EC] 81 mg PO DAILY 05/23/19 01/04/22 Fluticasone [Flonase] 2 sprays LIZ DAILY PRN 05/23/19 01/04/22 Losartan [Cozaar] 50 mg PO DAILY 11/04/20 01/04/22 Oxycodone HCl [Oxycontin] 60 mg ORAL BID 11/04/20 01/04/22 Albuterol Sulfate [Proair Hfa 1 puffs INH BID PRN 01/04/22 01/04/22 Inhaler] Ascorbic Acid [Vitamin C] 1,000 mg PO DAILY 01/04/22 01/04/22 Carvedilol [Coreg] 25 mg PO BID 01/04/22 01/04/22 Cyanocobalamin (Vitamin B-12) 1,000 mcg PO DAILY 01/04/22 01/04/22 [Vitamin B-12] Ferrous Sulfate 650 mg PO DAILY 01/04/22 01/04/22 Lidocaine Patch 5% [Lidoderm Patch] 2 patch TOP DAILY PRN 01/04/22 01/04/22 Magnesium Oxide [Mag Ox] 400 mg PO DAILY 01/04/22 01/04/22 Oxycodone HCl 60 mg PO Q4H PRN 01/04/22 01/04/22 Prochlorperazine Maleate 10 mg PO Q6H PRN 01/04/22 01/04/22 ondansetron HCL [Ondansetron HCl] 8 mg PO BID PRN 01/04/22 01/04/22 Saccharomyces Boulardii [Florastor] 250 mg PO BIDWM #20 cap 01/06/22 cefUROXime axetiL [Ceftin] 500 mg PO Q12H 10 Days #40 tablet 01/06/22 Pantoprazole [Protonix] 40 mg PO DAILY 30 Days #30 tablet 09/24/22 Sucralfate [Carafate] 1 gm PO ACHS #28 tablet 09/24/22 diazePAM [Valium] 5 mg PO BID #20 tablet 09/24/22 oxyCODONE [Roxicodone] 30 mg PO QID 5 Days #20 tablet 09/24/22 - Allergies Allergies/Adverse Reactions: Allergies Allergy/AdvReac Type Severity Reaction Status Date / Time apple AdvReac Nausea Verified 10/30/22 22:41 chocolate flavor AdvReac Nausea Verified 10/30/22 22:41 crab AdvReac Nausea Verified 10/30/22 22:41 ibuprofen AdvReac Unknown Verified 10/30/22 22:41 rice AdvReac Nausea Verified 10/30/22 22:41 scallops AdvReac Nausea Verified 10/30/22 22:41 shellfish derived AdvReac Nausea Verified 10/30/22 22:41 Exam - Vital Signs Reviewed Vital Signs: Yes Vital Signs: Vital Signs x48h Temp Pulse Resp BP Pulse Ox O2 Flow Rate 10/31/22 12:23 87 L 10 10/31/22 12:00 141 H 36 H 97/60 87 L 9 10/31/22 11:30 138 H 30 H 81/70 L 90 L 6 10/31/22 11:00 136 H 26 H 105/75 88 L 6 10/31/22 10:30 37 C 133 H 35 H 107/93 H 90 L 6 10/31/22 10:00 130 H 21 94/72 86 L 6 10/31/22 09:38 6 10/31/22 09:30 128 H 40 H 70/30 L 88 L 5 10/31/22 09:21 128 H 19 86/58 L 100 5 10/31/22 09:00 128 H 27 H 63/42 L 94 5 10/31/22 08:30 131 H 14 130/109 H 97 5 10/31/22 08:00 36.8 C 131 H 28 H 102/61 97 5 10/31/22 07:30 130 H 22 81/62 L 90 L 5 10/31/22 07:00 36.7 C 133 H 29 H 94/70 93 5 10/31/22 06:00 36.6 C 115 H 31 H 116/91 H 10/31/22 05:30 117 H 28 H 92/62 97 5 - Physical Exam General Appearance: positive: Moderate distress, Lethargic, Other (not easily arousable jaundice present moderate respiratory distress) Eyes Bilateral: positive: Other (eyes closed) Respiratory: positive: Other (labored breathing present) Cardiovascular: positive: Regular rate & rhythm Abdomen: positive: No distention Neurologic/Psychiatric: positive: Other (not easily arousable) Conclusion and Plan - Lab Results Microbiology Results 10/30/22 22:43 Blood - Right Iv-Start Blood Culture (PCR) - Final Laboratory Results 10/31/22 11:55: Urine Color YELLOW, Urine Clarity SL. CLOUDY, Urine pH 5.5, Ur Specific [place] 1.020, Urine Protein 30 H, Urine Glucose (UA) NEGATIVE, Urine Ketones TRACE, Urine Occult Blood LARGE H, Urine Nitrite NEGATIVE, Urine Bilirubin NEGATIVE, Urine Urobilinogen 0.2 (NORMAL), Ur Leukocyte Esterase NEGATIVE, Urine RBC 6-10 H, Urine WBC 4-5, Ur Squamous Epith Cells RARE Squamous, Amorphous Sediment Few, Urine Bacteria Few, Urine Casts 0-2 Hyaline Casts, Ur Microscopic Review INDICATED, Urine Culture Comments NOT INDICATED 10/31/22 10:06: Lactic Acid 8.9 H* 10/31/22 10:06: Sodium 134 L, Potassium 4.6, Chloride 101, Carbon Dioxide 9 L*, Anion Gap 24.0 H, BUN 45 H, Creatinine 4.4 H, Estimated GFR (MDRD) 14 L, Glucose 99, Calcium 7.0 L, Total Bilirubin 7.8 H, AST 1385 H, ALT 399 H, Alkaline Phosphatase 160 H, Total Protein 5.2 L, Albumin 2.6 L, Globulin 2.6, Albumin/Globulin Ratio 1.0 10/31/22 10:06: WBC 30.1 H, RBC 3.88 L, Hgb 10.6 L, Hct 34.4 L, MCV 88.7, MCH 27.3, MCHC 30.8 L, RDW 14.7, Plt Count 99 L, MPV 11.9 H, Neut # (Auto) Not Reportable, Lymph # (Auto) Not Reportable, [place] # (Auto) Not Reportable, Eos # (Auto) Not Reportable, Baso # (Auto) Not Reportable, Absolute Nucleated RBC Not Reportable, Total Counted 100, Band Neuts % (Manual) 38 H, Abnorm Lymph % (Manual) 0, Metamyelocytes % 13 H, Nucleated RBC % Not Reportable, Neutrophils # (Manual) 24.1 H, Lymphocytes # (Manual) 0.9 L, Monocytes # (Manual) 0.9, Eosinophils # (Manual) 0.3, Basophils # (Manual) 0.0, Differential Comment MANUAL DIFFERENTIAL, Manual Slide Review Indicated, WBC Morphology 3+ VACUOLATION, Platelet Estimate DECREASED (<130,000), Platelet Morphology NORMAL APPEARANCE, RBC Morph Micro Appear NORMAL APPEARANCE 10/31/22 03:30: Ammonia 33.7 10/31/22 02:38: Troponin I High Sens 291.1 H* 10/30/22 23:40: Urine Opiates Screen POSITIVE H, Ur Oxycodone Screen POSITIVE H, Urine Methadone Screen NEGATIVE, Ur Propoxyphene Screen NEGATIVE, Ur Barbiturates Screen NEGATIVE, Ur Tricyclics Screen NEGATIVE, Ur Phencyclidine Scrn NEGATIVE, Ur Amphetamine Screen NEGATIVE, U Methamphetamines Scrn NEGATIVE, U Benzodiazepines Scrn POSITIVE H, Urine Cocaine Screen NEGATIVE, U Cannabinoids Screen NEGATIVE 10/30/22 22:43: C-Reactive Protein 26.2 H 10/30/22 22:43: Procalcitonin 365.255 H* 10/30/22 22:43: TSH 0.56 10/30/22 22:43: Lactic Acid > 10.0 H* 10/30/22 22:43: B-Natriuretic Peptide 889 H 10/30/22 22:43: Sodium 133 L, Potassium 3.3 L, Chloride 96 L, Carbon Dioxide 10 L*, Anion Gap 27.0 H, BUN 36 H, Creatinine 4.5 H, Estimated GFR (MDRD) 13 L, Glucose 158 H, Calcium 7.6 L, Total Bilirubin 5.6 H, AST 501 H, ALT 200 H, Alkaline Phosphatase 233 H, Total Protein 5.7 L, Albumin 2.9 L, Globulin 2.8, Albumin/Globulin Ratio 1.0, Lipase 52 H, Salicylates 7.8, Acetaminophen < 10 L, Ethyl Alcohol < 5.0 10/30/22 22:43: WBC 26.1 H, RBC 4.16 L, Hgb 11.4 L, Hct 36.4 L, MCV 87.5, MCH 27.4, MCHC 31.3 L, RDW 14.4, Plt Count 91 L, MPV 11.7 H, Neut # (Auto) Not Reportable, Lymph # (Auto) Not Reportable, [place] # (Auto) Not Reportable, Eos # (Auto) Not Reportable, Baso # (Auto) Not Reportable, Absolute Nucleated RBC Not Reportable, Total Counted 100, Band Neuts % (Manual) 36 H, Abnorm Lymph % (Manual) 0, Metamyelocytes % 3 H, Myelocytes % 1 H, Nucleated RBC % Not Reportable, Neutrophils # (Manual) 23.8 H, Lymphocytes # (Manual) 0.5 L, Monocytes # (Manual) 0.8, Eosinophils # (Manual) 0.0, Basophils # (Manual) 0.0, Differential Comment MANUAL DIFFERENTIAL, Platelet Estimate DECREASED ( <130,000), RBC Morph Micro Appear NORMAL APPEARANCE 10/30/22 22:34: PT 17.1 H, INR 1.6 H, APTT 33.6 H 10/30/22 22:34: Nasal Adenovirus (PCR) NOT DETECTED, Nasal B. parapertussis DNA (PCR) NOT DETECTED, Nasal Coronavir 229E PCR NOT DETECTED, Nasal Coronavir HKU1 PCR NOT DETECTED, Nasal Coronavir NL63 PCR NOT DETECTED, Nasal Coronavir OC43 PCR NOT DETECTED, Nasal Enterovir/Rhinovir PCR NOT DETECTED, Nasal Influenza B PCR NOT DETECTED, Nasal Influenza A PCR NOT DETECTED, Nasal Parainfluen 1 PCR NOT DETECTED, Nasal Parainfluen 2 PCR NOT DETECTED, Nasal Parainfluen 3 PCR NOT DETECTED, Nasal Parainfluen 4 PCR NOT DETECTED, Nasal RSV (PCR) NOT DETECTED, Nasal B.pertussis DNA PCR NOT DETECTED, Nasal C.pneumoniae (PCR) NOT DETECTED, Liz Human Metapneumo PCR NOT DETECTED, Nasal M.pneumoniae (PCR) NOT DETECTED, Nasal SARS-CoV-2 (PCR) NOT DETECTED - Diagnostic Imaging Results Diagnostic Imaging Results: positive: Read independently (agree no cholecystitis present) - Diagnosis Diagnosis: sepsis - Consultation Note Consultation Note: agree with diagnosis sepsis most consistent with cholangitis agree with care and plan to transfer to facility which can offer a higher level of care he does not have cholecystitis by ct scan. he is not a surgical candidate with meld score 32. if he survives current sepsis and if there is a concern for cholecystitis recommend hida scan. if hida scan shows non filling gallbladder recommend cholecystostomy tube.
--- NOTE | 2022-10-31 13:18 | XRAY Report ---
PROCEDURE: Chest for Line Placement INDICATIONS: dyspnea TECHNIQUE: One view of the chest was acquired. COMPARISON: 10/30/2022. Correlation is made with chest CT, 10/31/2022 FINDINGS: Surgical changes and devices: An endotracheal tube is seen, with the tip 2 cm above the zak. The gastric tube is seen, with the tip overlying the distal esophagus. The seminal is seen to the lev el of the diaphragm. There is a stable right-sided chest port, with the tip near the cavoatrial junction. A left-sided shefali tral line is again seen, the tip overlying the inferior aspect of the left brachiocephalic vein. Lungs and pleura: On the supine study, no large pneumothorax or large pleural effusions can be seen. No focal infiltrates are detected. Low lung volumes can be seen, causing a crowded appearance to the lung markings. Mediastinum: Mediastinal contours appear normal. Heart size is moderately enlarged. Bones and chest wall: No suspicious bony lesions. Overlying soft tissues appear unremarkable. IMPRESSION: The tip of the endotracheal tube is seen 2 cm above the zak. The tip of the gastric tube is seen overlying the distal esophagus, with the sidehole is seen near th e level of diaphragm. Please consider advancement 10 to 15 cm. The tip of the right-sided chest port can be seen overlying the inferior aspect of the superior vena cava, near the cavoatrial junction. Stable left-sided central line, with the tip overlying the inferior aspect of the left brachiocephali c vein. Reviewed by: Joe Magdaleon MD on 10/31/2022 12:17 PM [facility] Approved by: Joe Magdaleno MD on 10/31/2022 12:17 PM [facility] Station ID: [id number]
[2022-10-31 13:19] VITALS: BP 82/63
== END 2022-10-31 14:00 | disposition short-term general hospital (02) ==
LOC: ED 22:30
DX: A41.9 Sepsis, unspecified organism (principal); K83.09 Other cholangitis; R65.21 Severe sepsis with septic shock; I51.7 Cardiomegaly; R09.02 Hypoxemia; I95.9 Hypotension, unspecified; R62.50 Unspecified lack of expected normal physiological development in childhood; Z98.84 Bariatric surgery status; F11.20 Opioid dependence, uncomplicated; Z78.1 Physical restraint status; Z20.822 Contact with and (suspected) exposure to COVID-19
CPT/HCPCS: 31500; 36415; 36556; 43753; 51702; 70450; 71045; 71250; 74176; 80053; 80306; 80307; 81001; 82140; 83605; 83690; 83880; 84145; 84443; 84484; 85025; 85610; 85730; 86140; 87040; 87150; 87181; 87633; 93005; 94002; 94640; 96365; 96366; 96368; 96375; 96376; 99291; 99292; A9270; G0480; J2060; J2185; J3370; J7120; 80320; 80329; 81003; 82803; 87086; 94770